=== PATIENT | male | born 1930 | race Caucasian/White ===

== ENCOUNTER 2016-09-24 16:11 | Inpatient (IN) | payer OTHER, BC ==
[~2016-09-24] VITALS: Ht 188.6 cm; Wt 89.4 kg
[~2016-09-24 16:11] MED LIST: CHOL400C7 PO; CINN1CAP2 PO; CLOP1TAB15 PO; DIVA500T5 PO; DOXY100C76 PO; GLCSC750600 PO; JNV100 PO; KRIL1CAP14 PO; METF1TAB85 PO; MISCCAP80 PO; MULT-188 PO; MULT-506 PO; PRED1SUS3 OPL; PSYL55.43 PO; SIMV40TA2 PO; TAMS0.4C38 PO; VITA100C4 PO; VST10 PO; [UNRECOGNIZED DRUG - CODE] PO
[2016-09-24] MEDS ORDERED: MAGNESIUM CITRATE 296 ML/BTL PO STA (16:37)
[2016-09-24] MEDS ORDERED: SOAP SUDS ENEMA PR STA (16:37)
--- NOTE | 2016-09-24 16:40 | EMERGENCY ROOM VISIT NOTE ---
History Report prepared by Iza: Dina Mason Under the Supervision of: Dr. Singh Woodard M.D. First contact with patient: 16:27 Chief Complaint: CONSTIPATION Stated Complaint: ANAL BLEEDING History of Present Illness The patient is a 85 year old male who presents to the Emergency Room with complaints of severe constipation starting today. He reports a very small amount of stool with blood. He currently complains of abdominal pain and rectal pain. He has worsening pain with sitting down. The patient is on Plavix. He denies fevers, chills, or any other complaints. The patient has a history of constipation but reports his current episode is much more severe than any of his past episodes. Source of History: patient Onset: today Position: other (global) Symptom Intensity: severe Quality: other (constipation) Associated Symptoms: + abdominal pain, No chills, No fevers Review of Systems See HPI for pertinent positives & negatives. A total of 10 systems reviewed and were otherwise negative. Past Medical & Surgical Medical Problems: (1) Closed head injury (2) Contusion of rib on right side (3) CVA (cerebral infarction) (4) Diabetes (5) Diarrhea (6) Fall (7) Fall (8) Hypertension (9) Retinal detachment Family History Diabetes mellitus FH: HTN (hypertension) FH: diabetes in Gallbladder disease Social History Smoking Status: Never Smoker Alcohol Use: none Occupation Status: retired Current/Historical Medications Scheduled Cholecalciferol (Vitamin D 400 Iu), 400 INTER.UNIT PO QPM Cinnamon (Cinnamon), 500 MG PO QAM Clopidogrel (Plavix), 75 MG PO QAM Divalproex Sodium (Depakote Delay Rel), 500 MG PO BID Doxycycline Monohydrate (Monodox), 100 MG PO QAM Enalapril Maleate (Enalapril Maleate), 10 MG PO QAM Glucosamine-Chondroitin (Glucosamine/Chondroitin), 1 TABLET PO BID Glyburide/Metformin (Glucovance 2.5/500 Mg *), 1 TABLET PO BID Krill Oil (Maximum Red Krill 300 mg), 300 MG PO QAM Metformin Hcl (Metformin Hcl Er), 500 MG PO QPM Multiple Vitamins W/ Minerals (Ocuvite), 1 TAB PO QAM Multivitamin (Multivitamin), 1 TABLET PO QAM Prednisolone Acetate 1% Oph (Pred Forte 1% Oph), 1 DROP OPL QID Probiotic Product (Probiotic), 1 CAP PO QAM Psyllium (Metamucil Powder), 1 TBS PO QAM Simvastatin (Zocor), 40 MG PO HS Sitagliptin (Januvia), 100 MG PO QPM Tamsulosin Hcl (Flomax), 0.4 MG PO HS Tocopheryl Acet,Dl-Alpha (Vitamin E), 200 INTER.UNIT PO QAM Allergies Coded Allergies: No Known Allergies (Verified , NKDA, 07/16/15) Physical Exam Vital Signs Date Time Temp Pulse Resp B/P Pulse Ox O2 Delivery O2 Flow Rate FiO2 09/25/16 00:00 90 19 144/90 95 Room Air 09/24/16 23:17 92 09/24/16 23:14 87 16 162/96 94 Room Air 09/24/16 21:55 83 16 155/78 96 Room Air 09/24/16 20:35 89 16 144/84 96 Room Air 09/24/16 19:14 84 09/24/16 18:37 85 16 126/70 95 09/24/16 16:16 36.6 96 18 139/82 96 Room Air Physical Exam GENERAL: Patient is a healthy-appearing well-nourished HEAD: Normocephalic atraumatic EYES: Ocular movements intact pupils equal and react to light OROPHARYNX mucous membranes are moist no exudates present no erythema or edema present NECK: Supple no nuchal rigidity CHEST: Good equal expansion LUNGS: Clear and equal to auscultation CARDIAC: Normal S1 and S2 ABDOMEN: Soft nontender no guarding BACK: No CVA tenderness RECTAL: Large stool ball noted. Disimpaction done. No blood present. EXTREMITIES: No pain upon palpation normal muscle strength in all groups no clubbing cyanosis or edema NEURO: Patient is following commands is answering questions appropriately. Alert and oriented x3 Cranial Nerves 2-12 grossly intact Medical Decision & Procedures ER Provider Diagnostic Interpretation: X-ray results as stated below per interpretation by me and the radiologist: CHEST AND ABDOMEN 2 VIEWS HISTORY: Pt c/o constipation COMPARISON: Chest 01/03/2015. Abdomen and pelvis CT 07/10/2013. FINDINGS: The lungs are clear. The heart is normal in size. No pleural effusions. No pneumothorax. No renal or ureteral calculi. Moderate well-formed stool seen within the colon. No dilated loops of small bowel to suggest an obstruction. IMPRESSION: 1. No acute process within the chest. 2. No evidence for bowel obstruction. 3. Moderate well-formed stool within the colon. Electronically signed by: Luis Cruz M.D. 09/24/2016 6:54 PM Dictated Date/Time: 09/24/2016 6:53 PM Laboratory Results 09/24/16 18:45 Red Blood Count 4.32, Mean Corpuscular Volume 92.1, Mean Corpuscular Hemoglobin 32.6, Mean Corpuscular Hemoglobin Concent 35.4, Mean Platelet Volume 10.0, Neutrophils (%) (Auto) 73.0, Lymphocytes (%) (Auto) 20.3, Monocytes (%) (Auto) 6.1, Eosinophils (%) (Auto) 0.2, Basophils (%) (Auto) 0.1, Neutrophils # (Auto) 6.64, Lymphocytes # (Auto) 1.85, Monocytes # (Auto) 0.56, Eosinophils # (Auto) 0.02, Basophils # (Auto) 0.01 09/24/16 18:45 Test 09/24/16 18:45 White Blood Count 9.11 K/uL (4.8-10.8) Red Blood Count 4.32 M/uL (4.7-6.1) Hemoglobin 14.1 g/dL (14.0-18.0) Hematocrit 39.8 % (42-52) Mean Corpuscular Volume 92.1 fL (80-100) Mean Corpuscular Hemoglobin 32.6 pg (25-34) Mean Corpuscular Hemoglobin Concent 35.4 g/dl (32-36) Platelet Count 198 K/uL (130-400) Mean Platelet Volume 10.0 fL (7.4-10.4) Neutrophils (%) (Auto) 73.0 % Lymphocytes (%) (Auto) 20.3 % Monocytes (%) (Auto) 6.1 % Eosinophils (%) (Auto) 0.2 % Basophils (%) (Auto) 0.1 % Neutrophils # (Auto) 6.64 K/uL (1.4-6.5) Lymphocytes # (Auto) 1.85 K/uL (1.2-3.4) Monocytes # (Auto) 0.56 K/uL (0.11-0.59) Eosinophils # (Auto) 0.02 K/uL (0-0.5) Basophils # (Auto) 0.01 K/uL (0-0.2) RDW Standard Deviation 44.4 fL (36.4-46.3) RDW Coefficient of Variation 13.2 % (11.5-14.5) Immature Granulocyte % (Auto) 0.3 % Immature Granulocyte # (Auto) 0.03 K/uL (0.00-0.02) Anion Gap 9.0 mmol/L (3-11) Est Creatinine Clear Calc Drug Dose 66.6 ml/min Estimated GFR () 81.3 Estimated GFR (Non- 70.1 BUN/Creatinine Ratio 16.4 (10-20) Calcium Level 9.1 mg/dl (8.5-10.1) Total Bilirubin 0.5 mg/dl (0.2-1) Direct Bilirubin 0.1 mg/dl (0-0.2) Aspartate Amino Transf (AST/SGOT) 29 U/L (15-37) Alanine Aminotransferase (ALT/SGPT) 18 U/L (12-78) Alkaline Phosphatase 53 U/L (45-117) Total Protein 7.2 gm/dl (6.4-8.2) Albumin 3.8 gm/dl (3.4-5.0) Lipase 250 U/L (73-393) Labs reviewed by ED physician. Medications Administered Medications (Trade) Dose Ordered Sig/Malinda Route Start Time Stop Time Status Last Admin Dose Admin Magnesium Citrate (Citrate Of Magnesia Soln) 150 ml NOW STAT PO 09/24/16 16:37 09/24/16 16:38 DC 09/24/16 16:45 150 ML Miscellaneous 1 ea 1 ea NOW STAT AZ 09/24/16 16:37 09/24/16 16:38 DC 09/24/16 17:05 1 EA Sodium Chloride (Nss 1000ml) 1,000 ml @ 999 mls/hr Q1H1M STAT IV 09/24/16 18:46 09/24/16 19:46 DC 09/24/16 19:05 999 MLS/HR Hydromorphone HCl (Dilaudid Inj) 0.5 mg NOW STAT IV 09/24/16 22:55 09/24/16 22:56 DC 09/24/16 23:12 0.5 MG Metoclopramide HCl (Reglan Inj) 10 mg NOW STAT IV 09/24/16 22:55 09/24/16 22:56 DC 09/24/16 23:11 10 MG ED Course 162: Past medical records reviewed. The patient was evaluated in room B04B. A complete history and physical examination was performed. 163: I performed rectal exam. I performed disimpaction. 163: Soap Suds Enema 1 ea AZ, Magnesium Citrate 150 ml PO 1846: Sodium Chloride 1000 ml @ 999 mls/hr IV 2154: The patient is complaining of abdominal pain and blood clots. 3: The patient is requesting to be hospitalized. 2255: Reglan Inj 10 mg IV, Dilaudid Inj 0.5 mg IV 0007: Upon reexamination the patient is resting comfortably. I discussed results and treatment plan with the patient. He verbalizes agreement and understanding. [facility] The patient will be evaluated for further management. Medical Decision Differential diagnosis: Etiologies such as functional constipation, impaction, obstruction, volvulus, metabolic abnormality, infection, neurologic, as well as others were entertained. This is an 85-year-old male who presents emergency department complaining of being unable to defecate. The patient was disimpacted by myself and he was given magnesium citrate as well as enemas. The patient continued to have rectal bleeding therefore an IV was established and a CBC renal profile and blood screen were obtained. The patient was also sent for a CAT scan of the abdomen pelvis which showed a large amount of fecal retention. At this point the patient became very agitated upon returning back from CAT scan and was requesting pain medication. He became belligerent with disposition and began questioning my Hippocratic oath. I noted to the patient that I offered him pain medication numerous times well he was in the emergency department and every single time he refused the pain medication. He was therefore given IV Dilaudid and discussed with the hospitalist service. Consults Time Called: 4 Consulting Physician: Dr. Flower from the [facility] Hospitalist Service Returned Call: [address] [facility]. Impression Primary Impression: Diffuse abdominal pain Additional Impressions: Rectal bleeding Constipation Scribe Attestation The scribe's documentation has been prepared under my direction and personally reviewed by me in its entirety. I confirm that the note above accurately reflects all work, treatment, procedures, and medical decision making performed by me. Departure Information Dispostion Being Evaluated By Hospitalist Referrals Jass Osorio M.D. (PCP) Patient Instructions My [facility] Health Problem Qualifiers Additional Impressions: Constipation Constipation type: other constipation type Qualified Codes: K59.09 - Other constipation
[2016-09-24] MEDS ORDERED: SODIUM CHLORIDE 0.9% 1000ML 1,000 ML IV STA (18:46)
--- NOTE | 2016-09-24 18:56 | DIAGNOSTIC IMAGING REPORT ---
CHEST AND ABDOMEN 2 VIEWS HISTORY: Pt c/o constipation COMPARISON: Chest 01/03/2015. Abdomen and pelvis CT 07/10/2013. FINDINGS: The lungs are clear. The heart is normal in size. No pleural effusions. No pneumothorax. No renal or ureteral calculi. Moderate well-formed stool seen within the colon. No dilated loops of small bowel to suggest an obstruction. IMPRESSION: 1. No acute process within the chest. 2. No evidence for bowel obstruction. 3. Moderate well-formed stool within the colon. Electronically signed by: Luis Cruz M.D. 09/24/2016 6:54 PM Dictated Date/Time: 09/24/2016 6:53 PM
[2016-09-24 18:59] LABS: BASO % 0.1 %; BASO ABS # 0.01 K/uL (0-0.2); COMPLETE YES; EOS % 0.2 %; HEMATOCRIT 39.8 % (42-52); IG% 0.3 %; LYMPH % 20.3 %; LYMPH ABS # 1.85 K/uL (1.2-3.4); MEAN CELL VOLUME 92.1 fL (80-100); MEAN CORPUSCULAR HEMOGLOBIN 32.6 pg (25-34); MEAN CORPUSCULAR HGB CONC 35.4 g/dl (32-36); MONO % 6.1 %; PLATELET COUNT 198 K/uL (130-400); RED BLOOD COUNT 4.32 M/uL (4.7-6.1); WHITE BLOOD COUNT 9.11 K/uL (4.8-10.8)
[2016-09-24] MEDS ORDERED: OPTIRAY 320 IV PRN (19:15)
[2016-09-24 19:17] LABS: BUN/CREATININE RATIO 16.4 (10-20); CALCIUM 9.1 mg/dl (8.5-10.1); CREATININE 0.99 mg/dl (0.60-1.40); POTASSIUM 4.2 mmol/L (3.5-5.1)
--- NOTE | 2016-09-24 22:04 | DIAGNOSTIC IMAGING REPORT ---
ABDOMEN AND PELVIS CT WITH IV AND ORAL CONTRAST CT DOSE: 706.98 mGy.cm HISTORY: Pt c/o constipation, rectal bleed TECHNIQUE: Multiaxial CT images of the abdomen and pelvis were performed following the use of intravenous and oral contrast. COMPARISON STUDY: Abdomen and pelvis CT 07/10/2013. FINDINGS: The heart remains top normal in size. Linear density at the right lower lobe favor subsegmental atelectasis are scarring. No pneumoperitoneum. No pneumatosis. No suspicious lytic or blastic osseous lesions. Degenerative changes within the lumbar spine. The liver, gallbladder, pancreas, spleen, adrenal glands are unremarkable. Multiple bilateral renal hypodense lesions which favor cysts. Dominant cyst within the upper pole of the right kidney measures 2.6 cm. There is also 2.4 cm cyst within the upper pole the left kidney. No hydronephrosis. No retroperitoneal lymphadenopathy. Bladder is distended. No pelvic free fluid. Questionable mild thickening of the distal rectum with minimal presacral fat stranding/edema. Moderate to large amount of well-formed stool within the rectum. There is a small amount of well-formed stool seen within the colon. Normal appendix. No evidence for small bowel obstruction. IMPRESSION: 1. There is suggestion of mild thickening of the distal rectum with minimal presacral fat stranding/edema. There is also a moderate to large amount well-formed stool within the rectum. This is consistent with a nonspecific proctitis but could be due to a stercoral proctitis. 2. Distended bladder. Recommend catheterization. 3. Normal appendix. 4. Bilateral renal cysts. Electronically signed by: Luis Cruz M.D. 09/24/2016 10:03 PM Dictated Date/Time: 09/24/2016 9:54 PM
[2016-09-24] MEDS ORDERED: METOCLOPRAMIDE HCL INJ 5 MG/ML 2 ML VIAL IV STA (22:55)
[2016-09-24] MEDS ORDERED: HYDROmorphone INJ 0.5 MG/0.5 ML SYR IV STA (22:55)
[2016-09-25] VITALS (9 sets, daily range): BP systolic 132–160; BP diastolic 71–88; PULSE 76–104; TEMP 36.6–37; O2SAT 93–96; Ht 188.6 cm; Wt 89.4 kg
[2016-09-25] MEDS ORDERED: HYDROmorphone INJ 0.5 MG/0.5 ML SYR IV STA (01:32)
--- NOTE | 2016-09-25 02:27 | History and Physical ---
History & Physical Date & Time of Service: Sep 25, 2016 at 02:07 Chief Complaint: Anal Bleeding Primary Care Physician: Jass Osorio M.D. History of Present Illness Source: patient 85 y/o M Hx HTN, HPL, NIDDM, CVA. Presented with constipation and related lower abdominal pain which was occasionally severe. He had been passing very small amounts of stool which were blood streaked. In the ER he received an enema and was also disimpacted. This resulted in several episodes of grossly bloody diarrhea. A CT of the abdomen was obtained revealing stercoral proctitis and a distended bladder. The pts bleeding has persisted and he will be admitted for monitoring and evaluation by the GI service. He denies lightheadedness, SOB or CP. Past Medical/Surgical History Medical Problems: (1) Closed head injury Status: Resolved (2) Contusion of rib on right side Status: Resolved (3) CVA (cerebral infarction) No residuals (4) Diabetes Status: Chronic (5) Diarrhea Status: Resolved (6) Fall Status: Resolved (7) Hypertension Status: Chronic (8) Retinal detachment Status: Resolved 9) BPH 10) Hard of hearing Family History Diabetes mellitus FH: HTN (hypertension) FH: diabetes in Gallbladder disease Social History Smoking Status: Never Smoker Housing status: lives alone Occupational Status: retired Immunizations History of Influenza Vaccine: N/A History of Tetanus Vaccine?: Yes History of Pneumococcal: Yes History of Hepatitis B Vaccine: No Multi-Drug Resistant Organisms History of MDRO: No Allergies Coded Allergies: No Known Allergies (Verified , NKDA, 07/16/15) Home Medications Scheduled Cholecalciferol (Vitamin D 400 Iu), 400 INTER.UNIT PO QPM Cinnamon (Cinnamon), 500 MG PO QAM Clopidogrel (Plavix), 75 MG PO QAM Divalproex Sodium (Depakote Delay Rel), 500 MG PO BID Doxycycline Monohydrate (Monodox), 100 MG PO QAM Enalapril Maleate (Enalapril Maleate), 10 MG PO QAM Glucosamine-Chondroitin (Glucosamine/Chondroitin), 1 TABLET PO BID Glyburide/Metformin (Glucovance 2.5/500 Mg *), 1 TABLET PO BID Krill Oil (Maximum Red Krill 300 mg), 300 MG PO QAM Metformin Hcl (Metformin Hcl Er), 500 MG PO QPM Multiple Vitamins W/ Minerals (Ocuvite), 1 TAB PO QAM Multivitamin (Multivitamin), 1 TABLET PO QAM Prednisolone Acetate 1% Oph (Pred Forte 1% Oph), 1 DROP OPL QID Probiotic Product (Probiotic), 1 CAP PO QAM Psyllium (Metamucil Powder), 1 TBS PO QAM Simvastatin (Zocor), 40 MG PO HS Sitagliptin (Januvia), 100 MG PO QPM Tamsulosin Hcl (Flomax), 0.4 MG PO HS Tocopheryl Acet,Dl-Alpha (Vitamin E), 200 INTER.UNIT PO QAM Review of Systems Constitutional: No chills, No fever, No sweats Eyes: No eye pain, No worsening of vision ENT: No hearing loss, No nasal symptoms, No unusual epistaxis Respiratory: No cough, No sputum, No wheezing Cardiovascular: No PND, No chest pain, No orthopnea Abdomen: + constipation, + diarrhea, + pain, + problem reported (BRBPR and diarrhea following disimpaction), No nausea, No vomiting Musculoskeletal: No joint pain, No muscle pain Genitourinary - Male: No dysuria, No hematuria Neurologic: No memory loss, No paralysis, No weakness Psychiatric: No depression symptoms Endocrine: No fatigue Hematologic / Lymphatic: No abnormal bleeding/bruising Integumentary: No rash Allergic / Immunologic: No environmental allergies Physical Exam Vital Signs Date Time Temp Pulse Resp B/P Pulse Ox O2 Delivery O2 Flow Rate FiO2 09/25/16 00:00 90 19 144/90 95 Room Air 09/24/16 23:17 92 09/24/16 23:14 87 16 162/96 94 Room Air 09/24/16 21:55 83 16 155/78 96 Room Air 09/24/16 20:35 89 16 144/84 96 Room Air 09/24/16 19:14 84 09/24/16 18:37 85 16 126/70 95 09/24/16 16:16 36.6 96 18 139/82 96 Room Air General Appearance: WD/WN, no apparent distress Head: normocephalic, atraumatic Eyes: normal inspection, PERRL, EOMI ENT: normal ENT inspection, pharynx normal Neck: supple, no adenopathy, thyroid normal, no JVD Respiratory/Chest: chest non-tender, lungs clear Cardiovascular: regular rate, rhythm, no edema, no gallop, no JVD, no murmur, normal peripheral pulses Abdomen/GI: + tenderness, + pertinent finding (Mild distention with hypoactive bowel sounds) Genitourinary - Male: + urethral discharge (bladder distention - catheter placed), + pertinent finding Back: normal inspection, no CVA tenderness, no muscle spasm, normal range of motion Extremities/Musculoskelatal: normal inspection Neurologic/Psych: 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, no motor/sensory deficits, alert, normal mood/affect, normal reflexes, oriented x 3, + pertinent finding (Hard of hearing - B/L aids) Skin: normal color, warm/dry, no rash Diagnostics Laboratory Results Results Past 24 Hours Test 09/24/16 18:45 Range/Units White Blood Count 9.11 4.8-10.8 K/uL Red Blood Count 4.32 4.7-6.1 M/uL Hemoglobin 14.1 14.0-18.0 g/dL Hematocrit 39.8 42-52 % Mean Corpuscular Volume 92.1 80-100 fL Mean Corpuscular Hemoglobin 32.6 25-34 pg Mean Corpuscular Hemoglobin Concent 35.4 32-36 g/dl Platelet Count 198 130-400 K/uL Mean Platelet Volume 10.0 7.4-10.4 fL Neutrophils (%) (Auto) 73.0 % Lymphocytes (%) (Auto) 20.3 % Monocytes (%) (Auto) 6.1 % Eosinophils (%) (Auto) 0.2 % Basophils (%) (Auto) 0.1 % Neutrophils # (Auto) 6.64 1.4-6.5 K/uL Lymphocytes # (Auto) 1.85 1.2-3.4 K/uL Monocytes # (Auto) 0.56 0.11-0.59 K/uL Eosinophils # (Auto) 0.02 0-0.5 K/uL Basophils # (Auto) 0.01 0-0.2 K/uL RDW Standard Deviation 44.4 36.4-46.3 fL RDW Coefficient of Variation 13.2 11.5-14.5 % Immature Granulocyte % (Auto) 0.3 % Immature Granulocyte # (Auto) 0.03 0.00-0.02 K/uL Sodium Level 142 136-145 mmol/L Potassium Level 4.2 3.5-5.1 mmol/L Chloride Level 105 98-107 mmol/L Carbon Dioxide Level 28 21-32 mmol/L Anion Gap 9.0 3-11 mmol/L Blood Urea Nitrogen 16 7-18 mg/dl Creatinine 0.99 0.60-1.40 mg/dl Est Creatinine Clear Calc Drug Dose 66.6 ml/min Estimated GFR () 81.3 Estimated GFR (Non- 70.1 BUN/Creatinine Ratio 16.4 10-20 Random Glucose 90 70-99 mg/dl Calcium Level 9.1 8.5-10.1 mg/dl Total Bilirubin 0.5 0.2-1 mg/dl Direct Bilirubin 0.1 0-0.2 mg/dl Aspartate Amino Transf (AST/SGOT) 29 15-37 U/L Alanine Aminotransferase (ALT/SGPT) 18 12-78 U/L Alkaline Phosphatase 53 45-117 U/L Total Protein 7.2 6.4-8.2 gm/dl Albumin 3.8 3.4-5.0 gm/dl Lipase 250 73-393 U/L Diagnostic Radiology CT abdomen: 1.There is suggestion of mild thickening of the distal rectum with minimal presacral fat stranding/edema. There is also a moderate to large amount well- formed stool within the rectum. This is consistent with a nonspecific proctitis but could be due to a stercoral proctitis. 2. Distended bladder. Recommend catheterization. 3. Normal appendix. 4. Bilateral renal cysts. Impression Assessment and Plan 85 y/o M Hx HTN, HPL, NIDDM, CVA. Presented with constipation and related lower abdominal pain which was occasionally severe. He had been passing very small amounts of stool which were blood streaked. In the ER he received an enema and was also disimpacted. This resulted in several episodes of grossly bloody diarrhea. A CT of the abdomen was obtained revealing stercoral proctitis and a distended bladder. The pts bleeding has persisted and he will be admitted for monitoring and evaluation by the GI service. 1) LGI bleed - likely the result of proctitis and Plavix use - bleeding has been copious however. We will trend his Hb and consult the GI service. Plavix held - monitor pressure on telemetry. IVF - NPO excepting necessary meds. Narcotics provided for calderon control as pain has been significant. 2) Bladder distention - retaining a small amount (200 cc on scan) - may be secondary to constipation - he has a cath in place as he was having what appeared to be overflow incontinence - we will leave this in place for the time being until his GI issues resolve. Cont Flomax 3) HTN - cont home meds 4) Hx CVA - restart Plavix if possible when bleeding resolves 5) DM - placed on sliding scale - oral meds held Full code - SCDs Total time for this admit including review of records, labs, med rec, imaging - discussion with pt and ER attending - 31 min Level of Care Telemetry Resuscitation Status FULL RESUSCITATION VTE Prophylaxis Given or contraindicated: SCD's
[2016-09-25 03:43] LABS: MANUAL MICROSCOPIC REQUIRED? YES; URINE APPEARANCE TURBID (CLEAR); URINE BILIRUBIN NEG (NEG); URINE COLOR RED; URINE NITRITE NEG (NEG); URINE PH 6.5 (4.5-7.5); UROBILINOGEN NEG (NEG)
[2016-09-25] MEDS ORDERED: IV FLUIDS COMPLETED PRN (03:45)
[2016-09-25 04:01] LABS: REVIEW REQ? NO
[2016-09-25 04:02] LABS: URINE RBC >30 /hpf (0-4)
[2016-09-25 04:06] LABS: URINE WBC >30 /hpf (0-5)
[2016-09-25 04:07] LABS: URINE BACTERIA 1+ (NEG)
[2016-09-25 04:08] LABS: ZZURINE CULT IF INDIC CATH YES
[2016-09-25] MEDS ORDERED: GLUCOSE 10 TABS/TUBE PO PRN (04:15)
[2016-09-25] MEDS ORDERED: GLUCAGON FOR INJ 1 MG VIAL SQ PRN (04:15)
[2016-09-25] MEDS ORDERED: GLUCOSE 40% GEL 15 GM TUBE PO PRN (04:15)
[2016-09-25] MEDS ORDERED: DEXTROSE 50% 50 ML SYR IV PRN (04:15)
[2016-09-25] MEDS: SODIUM CHLORIDE 0.9% 1000ML 1,000 ML IV SCH ×2 (04:59→16:08)
[2016-09-25] MEDS: INSULIN ASPART 100 UNITS/ML 3 ML PEN SC SCH ×4 (06:33→23:42)
[2016-09-25 08:07] LABS: HEMATOCRIT 38.8 % (42-52)
[2016-09-25] MEDS: DIVALPROEX SODIUM 500 MG DELAY RELEASE TAB PO SCH ×2 (08:16→20:59)
--- NOTE | 2016-09-25 08:40 | Progress Note ---
Progress Note Bridge note: Pt admitted after midnight. Chart reviewed, pt seen and examined. RN called and said pt was having heavy rectal bleeding, vitals stable and actually hypertensive. STAT H/H revealed hgb stable at 13.7. RN reported BRBPR that was a large amount. Pt denies SOB, CP, headache or lightheadedness. He is having lower abdominal pain. Reports having lunch yesterday and then felt like had to have a BM and was having lower abd pain all across, passed some small "bullets" of stool and then attempted manual self-disimpaction. Started having bright red bleeding mixed with stool, no clots, stopped disimpaction and came to ER. Last colonoscopy about 2 years ago and was told was normal, no records available for review. Was done with Dr. Mabry Vitaltammy reviewed NAD AAOx3 RRR no mgr nl S1S2 CTAB no wcr Abd +BS, soft, +TTP mostly suprapubic region with firm mass/stool palpable without guarding or rebound, Kemp in place and bladder decompressed, otherwise no masses, Rectal exam with bright red blood oozing very slowly and smeared on buttocks but not coming out rapidly, CARLOS not examined as did not want to disturb clot formation 85 yo male with h/o CVA, HTN, recurrent chalazions/blepharitis, dyslipidemia, DMII, BPH, here with rectal bleeding. H/H stable so far but may drop later as large amount bleeding just occurred. SOunds like constipation-induced proctitis and digital trauma -check H/H in 4 hours Spoke with GI who will see pt today to see if needs sigmoidoscopy -keep NPO -hold po meds holding Plavix and no chemical DVT proph -check vitals q1 hour for the next 4 hours -consented for PRBC transfusion if needed DVT Proph-SCDs
[2016-09-25] MEDS ORDERED: NON-FORMULARY MEDICATION (Probiotic Product (Probiotic) 1 CAP) PO SCH (09:00)
[2016-09-25] MEDS ORDERED: PNEUMOCOCCAL POLYSACCHARIDES 25 MCG/0.5 ML VIAL/SYR IM. ONE (09:00)
[2016-09-25] MEDS ORDERED: PNEUMOCOCCAL ADMINISTRATION CHARGE ONE (09:00)
[2016-09-25] MEDS: MoRPHine SULFATE 2 MG/ML CARP IV PRN ×2 (09:13→20:53)
[2016-09-25] MEDS: PrednisoLONE ACET 1% OP SUSP 5 ML BTL OPL SCH ×4 (09:13→20:58)
[2016-09-25 12:08] LABS: HEMATOCRIT 37.3 % (42-52)
[2016-09-25] MEDS: MINERAL OIL ENEMA 133 ML BTL PR SCH ×4 (12:20→21:12)
--- NOTE | 2016-09-25 12:56 | GASTROINTESTINAL CONSULTATION ---
DATE OF CONSULTATION: 09/25/2016 REASON FOR CONSULTATION: Rectal bleeding. HISTORY OF PRESENT ILLNESS: Mr. Vaughan is an 85-year-old white male with intermittent constipation who has had colonoscopies performed by Dr. Mabry 10 years ago and again 2 years ago and reports that there were no abnormal findings. The patient has been experiencing increasing difficulty with bowel movements and has tried some [id number] products of unclear type. He was developing increasing abdominal pain mostly lower, crampy abdominal pain, presumably due to inability to pass stools and eventually presented to the Emergency Room. At home, he was reporting hard stools, difficult to pass that, would occasionally have blood streaks on them. The patient received enemas in the ER following a colonoscopy that suggested a stool burden in the rectum along with inflammation in the rectum that likely reflected proctitis from a stercoral ulcer or stool impaction. He did have some bowel movements but began to have copious bright red blood per rectum following the enemas and disimpaction attempt. This continued off and on through the evening and night. Since this morning, the patient has not had a bright red bloody bowel movement. On admission, his hemoglobin was 14.1, at 4:30 this morning was 13.3 and 8:00 this morning 13.7. His white count is normal at 9.11. The patient denies any chronic or recent diarrhea or copious blood output. He also denies any weight loss, nausea or vomiting. He denies any recent changes in his medical therapy. 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 The patient also has a history of falls, retinal detachment and has difficulty hearing. He also has BPH and a distended bladder was noted on the CAT scan as well. FAMILY HISTORY: Significant for diabetes, hypertension, and gallbladder disease. SOCIAL HISTORY: The patient denies tobacco or alcohol usage. Lives alone and is retired. ALLERGIES: He has no known drug allergies. CURRENT HOME MEDICATIONS: Several and include vitamin D, Cinnamon, Plavix, valproic acid, doxycycline, enalapril, glucosamine, glyburide, metformin, krill oil, multivitamins, probiotics, simvastatin, sitagliptin, Januvia, tamsulosin, Flomax and tocopherol. REVIEW OF SYSTEMS: Otherwise noncontributory based on 14-point exam except for mentioned above. The patient denies any dysuria or hematuria. He has no reports of skin rash. He denies any nausea, vomiting, hematemesis, coffee-ground emesis or melena. PHYSICAL EXAMINATION: VITAL SIGNS: Today on admission - the patient is afebrile 36.6, heart rate 96, respirations 18, blood pressure 139/82, pulse ox 96% on room air. GENERAL: The patient is awake, alert and oriented x3. HEENT: He has a hearing aid device in his right ear. The sclerae anicteric. Conjunctivae are moist. NECK: There is no cervical or supraclavicular adenopathy. I do not appreciate thyromegaly. HEART: Normal S1, S2. LUNGS: Clear to auscultation without rales, rhonchi or wheeze. ABDOMEN: Mildly distended with mild tympany. There is no tenderness at this present time on moderate palpation. There is no rebound or guarding. I do not appreciate abdominal bruits. EXTREMITIES: Without clubbing, cyanosis or edema. RECTAL: Deferred at this time. ADDITIONAL LABORATORY STUDIES: Showed normal liver function panel, BUN and creatinine of 16 and 0.9 with a normal potassium of 4.2. IMPRESSION: Mr. Vaughan is an 85-year-old white male with multiple medical history with constipation. He did have a colonoscopy [address] Mabry, which the patient reports was unremarkable. The constipation has been intermittent at times, although has never created this degree of abdominal discomfort that he recalls and blood streaking of hard stools prior to admission. Differential diagnosis includes stercoral ulceration, possibly proctitis, although diarrhea overall has been absent in the patient's complaints. There are no significant-constipating medications in review of his medications. It is unclear what home remedies the patient was taking to promote a bowel movement, but describes a chocolate flavored cube that he bought [id number]. PLAN AND RECOMMENDATIONS: I made the following recommendations: His hemoglobin remained stable at this point as are his vital signs and I believe it is reasonable to gently attempt minimal oil enemas a couple times today followed by a GoLYTELY prep and colonoscopy tomorrow. If there is more overt bleeding or if the hemoglobin is dropping then a flexible sigmoidoscopy may be required later today. Orders placed. The patient's should be n.p.o. after midnight except for medications. Follow H/H serially. MTDD
[2016-09-25 16:30] LABS: HEMATOCRIT 36.3 % (42-52)
[2016-09-25] MEDS ORDERED: LAVAGE SOLUTION 4000ML PO SCH (17:00)
[2016-09-25] MEDS: ONDANSETRON INJ 2 MG/ML 2 ML VIAL IV PRN (20:53)
[2016-09-25] MEDS: SIMVASTATIN 40 MG TAB PO SCH (20:58)
[2016-09-25] MEDS: TAMSULOSIN HCL 0.4 MG CAP PO SCH (20:59)
[2016-09-25 21:26] LABS: HEMATOCRIT 34.2 % (42-52)
[2016-09-26] VITALS (7 sets, daily range): BP systolic 127–145; BP diastolic 62–78; PULSE 75–94; TEMP 36.3–36.9; O2SAT 93–97
[2016-09-26] MEDS: SODIUM CHLORIDE 0.9% 1000ML 1,000 ML IV SCH ×2 (05:52→18:48)
[2016-09-26] MEDS: MoRPHine SULFATE 2 MG/ML CARP IV PRN ×2 (05:54→21:49)
[2016-09-26] MEDS: INSULIN ASPART 100 UNITS/ML 3 ML PEN SC SCH ×3 (06:00→18:00)
[2016-09-26 07:16] LABS: BASO % 0.2 %; BASO ABS # 0.02 K/uL (0-0.2); COMPLETE YES; EOS % 1.1 %; HEMATOCRIT 29.2 % (42-52); IG% 0.2 %; LYMPH % 23.7 %; LYMPH ABS # 2.12 K/uL (1.2-3.4); MEAN CELL VOLUME 95.4 fL (80-100); MEAN CORPUSCULAR HEMOGLOBIN 32.4 pg (25-34); MEAN CORPUSCULAR HGB CONC 33.9 g/dl (32-36); MEAN PLATELET VOLUME 10.2 fL (7.4-10.4); MONO % 9.5 %; NEUT % 65.3 %; PLATELET COUNT 157 K/uL (130-400); RED BLOOD COUNT 3.06 M/uL (4.7-6.1); WHITE BLOOD COUNT 8.95 K/uL (4.8-10.8)
[2016-09-26 07:51] LABS: BUN/CREATININE RATIO 16.3 (10-20); CALCIUM 7.9 mg/dl (8.5-10.1); CREATININE 0.77 mg/dl (0.60-1.40); MAGNESIUM 1.9 mg/dl (1.8-2.4)
[2016-09-26] MEDS: PrednisoLONE ACET 1% OP SUSP 5 ML BTL OPL SCH ×5 (09:00→19:11)
[2016-09-26] MEDS: DIVALPROEX SODIUM 500 MG DELAY RELEASE TAB PO SCH ×2 (09:08→21:43)
--- NOTE | 2016-09-26 11:42 | Hospitalist Progress Note ---
Hospitalist Progress Note Date of Service Sep 26, 2016. (Estefania Piña ., PA-C) Subjective Pt evaluation today including: conversation w/ patient, physical exam, chart review, lab review, review of studies, review of inpatient medication list Pain: 5/10 dull lower abdominal pain PO Intake: NPO Voiding: jacobs catheter in place Patient reports feeling well. He complains of a 5/10 dull pain in his lower abdomen bilaterally, but states that this is much improved from prior to arrival. He has been having diarrhea as a result of the bowel prep for his colonoscopy today. Per nursing, there has not been any more bleeding per rectum. The patient states that he feels fatigued but also admits that he slept very poorly last night. Patient is being kept NPO. Jacosb in place. The patient denies fevers, chills, sweats, chest pain, palpitations, claudication, cough, wheezing, shortness of breath, nausea, vomiting, dysuria, hematuria, urinary retention, paralysis, weakness, numbness and tingling. Additional Comments: See HPI for pertinent positives and negatives. All other systems reviewed and negative. (Estefania Piañ ., PA-C) Objective Vital Signs Date Time Temp Pulse Resp B/P Pulse Ox O2 Delivery O2 Flow Rate FiO2 09/26/16 07:29 36.9 90 18 145/77 97 Room Air 09/26/16 04:00 Room Air 09/26/16 03:56 36.7 89 18 139/74 93 Room Air 09/26/16 00:00 36.7 94 18 143/78 93 Room Air 09/26/16 00:00 Room Air 09/25/16 20:00 Room Air 09/25/16 19:32 36.8 104 16 132/88 93 Room Air 09/25/16 16:00 Room Air 09/25/16 15:55 36.8 95 16 159/73 94 Room Air 09/25/16 12:03 89 141/76 09/25/16 12:00 Room Air 09/25/16 11:59 37.0 82 20 144/77 93 Room Air (Estefania Piña ., PA-C) Physical Exam General Appearance: WD/WN, no apparent distress Eyes: normal inspection, PERRL, EOMI ENT: normal ENT inspection, pharynx normal, + pertinent finding (very [place], hearing aids bilaterally) Neck: supple, no JVD, trachea midline Respiratory/Chest: lungs clear, normal breath sounds, no respiratory distress Cardiovascular: regular rate, rhythm, no gallop, no murmur Abdomen: normal bowel sounds, + distended (mild distention), + tenderness (LLQ and RLQ TTP) Extremities: non-tender, normal inspection, no pedal edema Neurologic/Psychiatric: alert, normal mood/affect, oriented x 3 Skin: normal color, warm/dry, no rash (Estefania Piña, PAJeffreyC) Laboratory Results Last 24 Hours Test 09/25/16 12:00 09/25/16 16:16 09/25/16 16:32 09/25/16 21:19 Hemoglobin 13.0 g/dL 12.4 g/dL 11.8 g/dL Hematocrit 37.3 % 36.3 % 34.2 % Bedside Glucose 144 mg/dl Test 09/25/16 23:30 09/26/16 06:13 09/26/16 07:02 Bedside Glucose 139 mg/dl 150 mg/dl White Blood Count 8.95 K/uL Red Blood Count 3.06 M/uL Hemoglobin 9.9 g/dL Hematocrit 29.2 % Mean Corpuscular Volume 95.4 fL Mean Corpuscular Hemoglobin 32.4 pg Mean Corpuscular Hemoglobin Concent 33.9 g/dl Platelet Count 157 K/uL Mean Platelet Volume 10.2 fL Neutrophils (%) (Auto) 65.3 % Lymphocytes (%) (Auto) 23.7 % Monocytes (%) (Auto) 9.5 % Eosinophils (%) (Auto) 1.1 % Basophils (%) (Auto) 0.2 % Neutrophils # (Auto) 5.84 K/uL Lymphocytes # (Auto) 2.12 K/uL Monocytes # (Auto) 0.85 K/uL Eosinophils # (Auto) 0.10 K/uL Basophils # (Auto) 0.02 K/uL RDW Standard Deviation 48.5 fL RDW Coefficient of Variation 14.0 % Immature Granulocyte % (Auto) 0.2 % Immature Granulocyte # (Auto) 0.02 K/uL Sodium Level 143 mmol/L Potassium Level 4.0 mmol/L Chloride Level 105 mmol/L Carbon Dioxide Level 28 mmol/L Anion Gap 10.0 mmol/L Blood Urea Nitrogen 13 mg/dl Creatinine 0.77 mg/dl Est Creatinine Clear Calc Drug Dose 85.1 ml/min Estimated GFR () 97.3 Estimated GFR (Non- 83.9 BUN/Creatinine Ratio 16.3 Random Glucose 143 mg/dl Calcium Level 7.9 mg/dl Magnesium Level 1.9 mg/dl (Estefania Piña ., MILAGROSC) Assessment and Plan 85 y/o male with a history of DM II, HTN, HLD, CVA, and BPH who presented to the ED with constipation, lower abdominal pain, and BRBPR. Pt received enema in ED and was disimpacted. Experienced grossly bloody diarrhea following disimpaction. Abd/pelvis CT findings consistent with proctitis, possibly a stercoral proctitis. Bladder was also distended on CT. Lower GI bleed in the setting of Plavix use--may be secondary to proctitis. Currently stable -Admitted for telemetry observation, will switch to full admission status 09/26 -GI consulted, appreciate recs: pt will go for colonoscopy on 09/26 -Pt kept NPO except meds -Hold Plavix -Continue trending H&H q6h. Hgb 9.9 on 09/26 -NSS at 75 cc/hr -Morphine 2 mg IV q3h prn pain -Zofran 4 mg IV q5h prn nausea Bladder distention, BPH--retained 200 cc on bladder scan, may be secondary to constipation -Continue Jacobs catheter -Continue Flomax 0.4 mg PO qhs Diabetes mellitus type 2--last hgbA1c checked 05/04/16 was 6.9 -Hold glyburide/metformin, Januvia -Insulin sliding scale -Check BSGs q ac and qhs -Recheck HgbA1c HTN--stable -Continue enalapril 10 mg PO qd HLD -Continue simvastatin 40 mg PO qhs H/o CVA -Restart Plavix when bleeding resolves, H&H stable DVT prophylaxis -Hold chemical prophylaxis due to bleeding -LUDWIG Barillas Code Status -Level I, FULL RESUSCITATION STATUS Dispo -PT/OT evaluate and treat and discharge planning as pt lives alone and is over 80 years old (Estefania Piña ., MILAGROSC) I agree with [facility] assessment and plan and have seen and examined pt myself VSS Labs reviewed Further drop in Hg Due for colonoscopy this afternoon Mild abd discomfort in lower quadrants (Jared Dawn D.O.)
[2016-09-26 13:06] LABS: ESTIMATED AVERAGE GLUCOSE 140 mg/dl; HA1C FLAG Normal (Normal)
[2016-09-26 13:18] LABS: HEMATOCRIT 29.7 % (42-52)
--- NOTE | 2016-09-26 14:12 | Endo History and Physical ---
History & Physical Date of Service: Sep 26, 2016. Chief Complaint: Rectal bleeding Referring Physician: Dr. Tre Osorio History of Present Illness For colonoscopy Past Medical History Diabetes, Arthritis, High Cholesterol, Hypertension, CVA/TIA Past Surgical History Hx Cardiac Surgery: No Hx Abdominal Surgery: Yes (hernia) Hx Post-Op Nausea and Vomiting: No Hx Cancer Surgery: No Hx Thoracic Surgery: No Hx Orthopedic: No Hx Urinary Tract Surgery: No Social History Smoking Status: Never Smoker Hx Substance Use: No Hx Alcohol Use: No Allergies Coded Allergies: No Known Allergies (Verified , NKDA, 07/16/15) Current Medications Reported Home Medications Medications Dose Route/Sig Max Daily Dose Days Date Category Pred Forte 1% Oph (Prednisolone Acetate) Susp 1 Drop OPL QID 06/18/15 Reported Flomax (Tamsulosin Hcl) 0.4 Mg Cap 0.4 Mg PO HS 05/13/15 Reported Monodox (Doxycycline Monohydrate) 100 Mg Cap 100 Mg PO QAM 05/13/15 Reported Maximum Red Krill 300 mg (Krill Oil) 1 Cap Cap 300 Mg PO QAM 01/03/15 Reported Metamucil Powder (Psyllium Hydrophilic Mucilloid) Powd 1 Tbs PO QAM 01/03/15 Reported Vitamin D 400 Iu (Cholecalciferol) 400 Unit Cap 400 Inter.unit PO QPM 10/18/14 Reported Probiotic (Probiotic Product) 1 Cap Cap 1 Cap PO QAM 10/18/14 Reported Ocuvite (Multiple Vitamins W/ Minerals) 1 Tab Tab 1 Tab PO QAM 10/18/14 Reported Enalapril Maleate 10 Mg Tab 10 Mg PO QAM 10/18/14 Reported Januvia (Sitagliptin) 100 Mg Tab 100 Mg PO QPM 10/18/14 Reported Depakote Delay Rel (Divalproex Sodium) 500 Mg Tab 500 Mg PO BID 10/18/14 Reported Metformin Hcl Er (Metformin Hcl) 500 Mg Tab 500 Mg PO QPM 10/18/14 Reported Cinnamon 500 Mg Cap 500 Mg PO QAM 07/10/13 Reported Zocor (Simvastatin) 40 Mg Tab 40 Mg PO HS 07/10/13 Reported Vitamin E (sw-Uwcih-Lbyhnjqtth Acetate) 100 Inter.unit Cap 200 Inter.unit PO QAM 01/17/12 Reported Multivitamin (Multivitamins) Tab 1 Tablet PO QAM 05/27/11 Reported Glucosamine/Chondroitin 750 Mg/600 Mg Cap 1 Tablet PO BID 08/14/09 Reported Plavix (Clopidogrel Bisulfate) 75 Mg Tab 75 Mg PO QAM 08/14/09 Reported Glucovance 2.5/500 Mg * (Glyburide/Metformin) Tab 1 Tablet PO BID 03/19/09 Reported Vital Signs Weight (Kilograms): 89.400 Height (Feet): 6 Height (Inches): 2.25 Date Time Temp Pulse Resp B/P Pulse Ox O2 Delivery O2 Flow Rate FiO2 09/26/16 13:57 36.3 90 20 145/73 93 Room Air 09/26/16 12:21 36.6 75 18 133/75 97 Room Air 09/26/16 12:13 Room Air 09/26/16 12:00 Room Air 09/26/16 11:09 36.6 75 18 133/75 97 Room Air 09/26/16 08:00 Room Air 09/26/16 07:29 36.9 90 18 145/77 97 Room Air 09/26/16 04:00 Room Air 09/26/16 03:56 36.7 89 18 139/74 93 Room Air 09/26/16 00:00 36.7 94 18 143/78 93 Room Air 09/26/16 00:00 Room Air 09/25/16 20:00 Room Air 09/25/16 19:32 36.8 104 16 132/88 93 Room Air 09/25/16 16:00 Room Air 09/25/16 15:55 36.8 95 16 159/73 94 Room Air Physical Exam General Appearance: WD/WN, + pertinent finding (Decreased hearing) Respiratory/Chest: Respiratory effort: no dyspnea Cardiovascular: Heart Auscultation: RRR Abdomen: Inspection & Palpation: soft Assessment and Plan Rectal bleeding for colonoscopy
[2016-09-26] MEDS ORDERED: LIDOCAINE HCL 2% 2 ML VIAL (20MG/ML) ONE (14:13)
[2016-09-26] MEDS ORDERED: PROPOFOL IV EMULSION 10 MG/ML 20 ML VIAL IV ONE ×2 (14:13)
--- NOTE | 2016-09-26 14:42 | Discharge Instructions ---
Endoscopy Patient Instructions Date / Procedure(s) Performed Sep 26, 2016. Colonoscopy Allergy Information Coded Allergies: No Known Allergies (Verified , NKDA, 07/16/15) Discharge Date / Findings Sep 26, 2016. Anal fissure Medication Instructions Restart Stopped Medication(s): resume meds Current Inpatient Medications Medications (Trade) Dose Ordered Sig/Malinda Route Start Time Stop Time Status Last Admin Dose Admin Ioversol (Optiray 320) 100 ml UD PRN IV 09/24/16 19:15 09/28/16 19:14 Divalproex Sodium (Depakote Delay Rel Tab) 500 mg BID PO 09/25/16 09:00 10/25/16 08:59 09/26/16 09:08 500 MG Prednisolone Acetate (Pred Forte 1% Oph Susp) 1 drops QID OPL 09/25/16 09:00 10/25/16 08:59 09/25/16 20:58 1 DROPS Simvastatin (Zocor Tab) 40 mg HS PO 09/25/16 21:00 10/25/16 20:59 09/25/16 20:58 40 MG Tamsulosin HCl (Flomax Cap) 0.4 mg HS PO 09/25/16 21:00 10/25/16 20:59 09/25/16 20:59 0.4 MG Acetaminophen (Tylenol Tab) 650 mg Q4H PRN PO 09/25/16 01:45 10/25/16 01:44 Ondansetron HCl (Zofran Inj) 4 mg Q6H PRN IV 09/25/16 01:45 10/25/16 01:44 09/25/16 20:53 4 MG Morphine Sulfate (MoRPHine SULFATE INJ) 2 mg Q3H PRN IV 09/25/16 01:45 10/09/16 01:44 09/26/16 05:54 2 MG Insulin Aspart SLIDING SCALE G... Q6 SC 09/25/16 06:00 10/25/16 05:59 09/25/16 06:33 1 UNITS Sodium Chloride (Nss 1000ml) 1,000 ml @ 75 mls/hr [id number] IV 09/25/16 04:15 09/26/16 05:52 75 MLS/HR Miscellaneous (Iv Fluids Completed) 1 ea PRN PRN N/A 09/25/16 03:45 09/25/17 03:44 Glucose (Glucose 40% Gel) 15-30 GRAMS 15 GRAMS... UD PRN PO 09/25/16 04:15 10/25/16 04:14 Glucose (Glucose Chew Tab) 4-8 Tablets 4 Tabl... UD PRN PO 09/25/16 04:15 10/25/16 04:14 Dextrose (Dextrose 50% 50ML Syringe) 25-50ML OF 50% DW IV FOR... UD PRN IV 09/25/16 04:15 10/25/16 04:14 Glucagon (Glucagon Inj) 1 mg UD PRN SQ 09/25/16 04:15 10/25/16 04:14 Polyethylene Glycol/ Electrolytes (Golytely Soln) 1 dose TODAY@1700 PO 09/25/16 17:00 10/25/16 16:59 09/25/16 18:19 1 DOSE Provider Instructions Activity Restrictions - No exercising or heavy lifting for 24 hours. - Do not drink alcohol the day of the procedure. - Do not drive a car or operate machinery until the day after the procedure. - Do not make any important decisions or sign important papers in 24 hours after the procedure. Following Day: - Return to full activity which may include returning to work/school. Diet Start your diet with liquids and light foods (jello, soup, juice, toast). Then eat your usual diet if not nauseated. Treatment For Common After Affects For mild abdominal pain, bloating, or excessive gas: - Rest - Eat lightly - Lie on right side Follow-Up Information Follow-up with as scheduled Anesthesia Information What You Should Know You have had a procedure that required some medicine to reduce anxiety and discomfort. This treatment is called moderate sedation. After receiving the treatment, you may be sleepy, but you will be able to breathe on your own. The effects of the treatment may last for several hours. Follow these instructions along with Activity/Diet recommendations noted above: * Do NOT do anything where dizziness or clumsiness would be dangerous. * Rest quietly at home today, then you can be up and about tomorrow. * Have a responsible person stay with you the rest of today. * You may have had an I.V. today. If so, you may take the dressing off later today. Recommendations Call your doctor if: * Trouble breathing * Continuous vomiting for more than 24 hours * Temperature above 101 degrees * Severe abdominal pain or bloating * Pain not relieved by pain medicine ordered * There is increased drainage or redness from any incision * A large amount of rectal bleeding greater than 2-3 tablespoons. (If you had a polyp/s removed or have hemorrhoids, a small amount of blood - from the rectum is to be expected.) * You have any unanswered questions or concerns. IN THE EVENT OF A SERIOUS EMERGENCY, GO TO THE NEAREST EMERGENCY ROOM Your discharge instructions were prepared by provider Price Mabry. Patient Instructions Signature Page Richard Vaughan Patient (or Guardian) Signature/Date: I have read and understand the instructions given to me by my caregivers. Caregiver/RN/Doctor Signature/Date: The above-named patient and/or guardian has received patient instructions on this date. + Original Patient Signature Page (only) stays with chart. Please make copy for patient.
--- NOTE | 2016-09-26 14:45 | GI REPORT ---
Procedure Date: 09/26/2016 2:24 PM Procedure: Colonoscopy Indications: Rectal bleeding Medicines: Propofol total dose 220 mg IV, Lidocaine 40 mg IV Complications: No immediate complications. Estimated Blood Loss: Estimated blood loss: none. Procedure: Pre-Anesthesia Assessment: - Prior to the procedure, a History and Physical was performed, and patient medications, allergies and sensitivities were reviewed. The patient's tolerance of previous anesthesia was reviewed. - The risks and benefits of the procedure and the sedation options and risks were discussed with the patient. All questions were answered and informed consent was obtained. After I obtained informed consent, the scope was passed under direct vision. Throughout the procedure, the patient's blood pressure, pulse, and oxygen saturations were monitored continuously. The scope was introduced through the anus and advanced to the cecum, identified by appendiceal orifice and ileocecal valve. The colonoscopy was performed without difficulty. The patient tolerated the procedure well. The quality of the bowel preparation was good. Findings: The perianal exam findings include anal fissure. The entire examined colon appeared normal. Impression: - Anal fissure found on perianal exam. - The entire examined colon is normal. - No specimens collected. Recommendation: - Return patient to [facility] for ongoing care. - Continue present medications. Price Mabry M.D. Price Mabry MD 09/26/2016 2:45:58 PM This report has been signed electronically. Note Initiated On: 09/26/2016 2:24 PM I attest to the content of the Intraoperative Record and orders documented therein, exceptions below
[2016-09-26] MEDS ORDERED: NITROGLYCERIN OINT 2% 1GM PACKET EXT ONE (15:00)
--- NOTE | 2016-09-26 15:11 | PROGRESS NOTE ---
DATE: 09/26/2016 HISTORY OF PRESENT ILLNESS: The patient presented for colonoscopy today after digital disimpaction for constipation. It appears that the constipation may have been related to him taking a lot of Tums, which had calcium and is constipating. After disimpaction, the patient had a lot of rectal bleeding. The patient is known to be on Plavix, which would actually augment the bleeding. He had a colonoscopy today. This colonoscopy was carried into the cecum. The prep was good. He did have an anal fissure, but no other cause of bleeding was found. There was a clot adjacent to the fissure that was removed. There was no further active bleeding. IMPRESSION AND PLAN: The patient has an anal as the source of bleeding. This is probably occurred during his disimpaction or when he was moving his bowels while being constipated. I recommended that the patient avoid using Tums or any calcium containing antacid and use Gaviscon or some non-calcium containing antacid instead and also to apply nitroglycerin ointment at 0.2% topically to the anal area twice a day to help facilitate healing of his anal fissure.
[2016-09-26] MEDS: PETROLATUM EXT SCH ×4 (16:00→22:00)
[2016-09-26] MEDS: NITROGLYCERIN 2% EXT SCH ×4 (16:00→22:00)
--- NOTE | 2016-09-26 16:06 | Anesthesiology Progress Note ---
Anesthesia Post Op Note Date & Time Sep 26, 2016 at 16:06 Vital Signs Pain Intensity: 0 Vital Signs Past 12 Hours Date Time Temp Pulse Resp B/P Pulse Ox O2 Delivery O2 Flow Rate FiO2 09/26/16 15:45 87 20 136/63 96 Room Air 09/26/16 15:10 90 20 141/67 93 Room Air 09/26/16 14:55 93 20 140/76 98 Room Air 09/26/16 13:57 36.3 90 20 145/73 93 Room Air 09/26/16 12:21 36.6 75 18 133/75 97 Room Air 09/26/16 12:13 Room Air 09/26/16 12:00 Room Air 09/26/16 11:09 36.6 75 18 133/75 97 Room Air 09/26/16 08:00 Room Air 09/26/16 07:29 36.9 90 18 145/77 97 Room Air Notes Mental Status: alert / awake / arousable, participated in evaluation Pt Amnestic to Procedure: Yes Nausea / Vomiting: adequately controlled Pain: adequately controlled Airway Patency, RR, SpO2: stable & adequate BP & HR: stable & adequate Hydration State: stable & adequate Anesthetic Complications: no major complications apparent
[2016-09-26] MEDS ORDERED: NURSING VERBAL MED ORDER ONE ×2 (18:15→23:00)
[2016-09-26 19:50] LABS: HEMATOCRIT 29.1 % (42-52)
[2016-09-26] MEDS: TAMSULOSIN HCL 0.4 MG CAP PO SCH (21:43)
[2016-09-26] MEDS: SIMVASTATIN 40 MG TAB PO SCH (21:43)
[2016-09-26] MEDS: ONDANSETRON INJ 2 MG/ML 2 ML VIAL IV PRN (21:47)
[2016-09-26] MEDS: ACETAMINOPHEN 325 MG TAB PO PRN (22:12)
[2016-09-27] VITALS (7 sets, daily range): BP systolic 107–148; BP diastolic 52–76; PULSE 83–109; TEMP 36.7–37.2; O2SAT 91–95
[2016-09-27 07:37] LABS: MEAN CELL VOLUME 93.2 fL (80-100); MEAN CORPUSCULAR HEMOGLOBIN 32.6 pg (25-34); MEAN PLATELET VOLUME 9.6 fL (7.4-10.4); PLATELET COUNT 147 K/uL (130-400); RED BLOOD COUNT 2.79 M/uL (4.7-6.1); WHITE BLOOD COUNT 7.27 K/uL (4.8-10.8)
[2016-09-27] MEDS: ACETAMINOPHEN 325 MG TAB PO PRN (08:02)
[2016-09-27 08:12] LABS: BUN/CREATININE RATIO 12.8 (10-20); CALCIUM 7.9 mg/dl (8.5-10.1); CREATININE 0.76 mg/dl (0.60-1.40); POTASSIUM 3.8 mmol/L (3.5-5.1)
[2016-09-27] MEDS: DIVALPROEX SODIUM 500 MG DELAY RELEASE TAB PO SCH ×2 (08:45→20:48)
[2016-09-27] MEDS: PrednisoLONE ACET 1% OP SUSP 5 ML BTL OPL SCH ×4 (08:46→20:08)
[2016-09-27] MEDS: INSULIN ASPART 100 UNITS/ML 3 ML PEN SC SCH ×4 (08:48→20:59)
[2016-09-27] MEDS: NITROGLYCERIN 2% EXT SCH ×4 (11:02→20:08)
[2016-09-27] MEDS: PETROLATUM EXT SCH ×4 (11:02→20:08)
[2016-09-27] MEDS ORDERED: NITR1OIN EXT (12:00)
[2016-09-27] MEDS ORDERED: SENN-61 PO (12:00)
--- NOTE | 2016-09-27 12:13 | Discharge Instructions ---
Discharge Instructions Admission Reason for Admission: Constipation, Rectal Bleeding Discharge Discharge Diagnosis / Problem: Constipation, rectal bleeding Discharge Goals Goal(s): Decrease discomfort, Improve function, Diagnostic testing, Therapeutic intervention Activity Recommendations Activity Limitations: resume your previous activity . Instructions / Follow-Up Instructions / Follow-Up You were admitted to the hospital with severe constipation, abdominal pain, and bloody stools. A disimpaction of your stool resulted in a large amount of bloody diarrhea. You were then kept NPO and monitored for severe acute blood loss. A colonoscopy was performed to determine the source of the bleeding. An anal fissure was found, which was likely the source of the bleeding. The rest of the colonoscopy was normal. Following the procedure, your blood counts remained stable, and you are now medically stable to return home. It is important that you avoid Tums and other medications containing calcium, as this is thought to be the cause of your severe constipation. If you are experiencing heartburn without the Tums, see your family doctor about other medications you can take that do not contain calcium. Medication: Please apply 1 inch of nitroglycerin ointment to your anal canal twice a day for the next 2 weeks to ensure your anal fissure is healed. This prescription has been sent to your pharmacy. Please take Senokot 2 tablets by mouth at bedtime. This is a laxative that will help treat your constipation. This prescription has been sent to your pharmacy. You may also take over the counter Colace 100 mg by mouth 1-2 times a day as needed for constipation. You may resume your home medications. Follow up: Please follow up with your primary care provider within 1-2 weeks regarding your hospital stay. Current Hospital Diet Patient's current hospital diet: Diabetes Type 2 Diet Discharge Diet Recommended Diet: Diabetes Type 2 Diet Procedures Procedures Performed: Colonoscopy Pending Studies Studies pending at discharge: no Laboratory Results Hemoglobin A1c Test 09/26/16 07:02 Range/Units Estimated Average Glucose 140 mg/dl Hemoglobin A1c 6.5 H 4.5-5.6 % Medical Emergencies . Who to Call and When: Medical Emergencies: If at any time you feel your situation is an emergency, please call 911 immediately. . Non-Emergent Contact Non-Emergency issues call your: Primary Care Provider Call Non-Emergent contact if: you have a fever, your pain is not controlled, your pain is worsening, your pain is concerning you, you have any medication questions . Past History Medical & Surgical History: (1) Constipation (2) Rectal bleeding . "Provider Documentation" section prepared by Estefania Piña. VTE Core Measure Inpt VTE Proph given/why not?: SCD's
--- NOTE | 2016-09-27 13:32 | Discharge Summary ---
Discharge Summary Admission Date: Sep 26, 2016 at 11:12 Discharge Date: Sep 27, 2016 Discharge Disposition: Home Principal Diagnosis: Constipation, anal fissure Immunizations: Have You Had Influenza Vaccine: N/A History of Tetanus Vaccine?: Yes History of Pneumococcal: Yes History of Hepatitis B Vaccine: No Procedures: Patient: MARLA GARCIA Admit Date: 09/24/1701/18/17 Med Rec: [id number] Acct ID: [id number] [~ rep ct labl] Page 2of 2 p: [~ rep prt dt last] [~ rep prt tm last] [~ rep ct labl] Page 1of 1 p: [~ rep prt dt last] [~ rep prt tm last] GI REPORT [place] Patient: MARLA GARCIA Admit Date: 09/24/1701/20/17 Med Rec: [id number] Att Phy: Jared Dawn D.O. Acct ID: [id number] Tammi Phy: Jass Osorio M.D. Date: 1930 Ref Phy: Self, Referred Fam Phy: Jass Osorio M.D. Age: 85 Location: [facility] Sex: M Room/Bed: [facility] MNE:PROVATION REPORT #: [id number] CC: Price Mabry M.D. Endcc: DICTATED BY: Price Mabry M.D. Procedure Date: 09/26/2016 2:24 PM Procedure: Colonoscopy Indications: Rectal bleeding Medicines: Propofol total dose 220 mg IV, Lidocaine 40 mg IV Complications: No immediate complications. Estimated Blood Loss: Estimated blood loss: none. Procedure: Pre-Anesthesia Assessment: - Prior to the procedure, a History and Physical was performed, and patient medications, allergies and sensitivities were reviewed. The patient's tolerance of previous anesthesia was reviewed. - The risks and benefits of the procedure and the sedation options and risks were discussed with the patient. All questions were answered and informed consent was obtained. After I obtained informed consent, the scope was passed under direct vision. Throughout the procedure, the patient's blood pressure, pulse, and oxygen saturations were monitored continuously. The scope was introduced through the anus and advanced to the cecum, identified by appendiceal orifice and ileocecal valve. The colonoscopy was performed without difficulty. The patient tolerated the procedure well. The quality of the bowel preparation was good. Findings: The perianal exam findings include anal fissure. The entire examined colon appeared normal. Impression: - Anal fissure found on perianal exam. - The entire examined colon is normal. - No specimens collected. Recommendation: - Return patient to [facility] for [facility] care. - Continue present medications. Price Mabry M.D. Price Mabry MD 09/26/2016 2:45:58 PM This report has been signed electronically. Note Initiated On: 09/26/2016 2:24 PM I attest to the content of the Intraoperative Record and orders documented therein, exceptions below Dictated: 09/26/16 1424 Signed: 09/26/16 1445 The status of this report is Signed. Draft = Not yet reviewed or approved by Medical Physician. Signed = Reviewed and approved by Medical Physician. <ConsultingPhyMNE>f pt consult dr gaytan</ConsultingPhyMNE> <FamilyPhyMNE>f pt fam dr gaytan</FamilyPhyMNE> <OtherPhyMNE>f pt other dr gaytan</OtherPhyMNE> < PrimaryPhyMNE>f pt prim care dr gaytan</PrimaryPhyMNE> <ReferringPhyMNE>f pt referring dr gaytan</ReferringPhyMNE> (Estefania Piña ., PAJeffreyC) Medication Reconciliation New Medications: Nitroglycerin (Intra-Anal) (Rectiv) 0.4 % Oin 1 INCH EXT BID for 14 Days, #1 TUBE Apply 1 inch of ointment to anal canal twice a day. Senna (Senokot) 8.6 Mg Tab 2 TAB PO HS for 30 Days, #60 TAB Take 2 tablets by mouth at bedtime. Continued Medications: Cholecalciferol (Vitamin D 400 Iu) 400 Unit Cap 400 INTER.UNIT PO QPM, CAP Cinnamon (Cinnamon) 500 Mg Cap 500 MG PO QAM Clopidogrel (Plavix) 75 Mg Tab 75 MG PO QAM, 0 Refills Divalproex Sodium (Depakote Delay Rel) 500 Mg Tab 500 MG PO BID, #180 Doxycycline Monohydrate (Monodox) 100 Mg Cap 100 MG PO QAM, CAP Enalapril Maleate (Enalapril Maleate) 10 Mg Tab 10 MG PO QAM, #90 Glucosamine-Chondroitin (Glucosamine/Chondroitin) 750 Mg/600 Mg Cap 1 TABLET PO BID Glyburide/Metformin (Glucovance 2.5/500 Mg *) Tab 1 TABLET PO BID Krill Oil (Maximum Red Krill 300 mg) 1 Cap Cap 300 MG PO QAM Metformin Hcl (Metformin Hcl Er) 500 Mg Tab 500 MG PO QPM, #90 Multiple Vitamins W/ Minerals (Ocuvite) 1 Tab Tab 1 TAB PO QAM Multivitamin (Multivitamin) Tab 1 TABLET PO QAM, 0 Refills Prednisolone Acetate 1% Oph (Pred Forte 1% Oph) Susp 1 DROP OPL QID Probiotic Product (Probiotic) 1 Cap Cap 1 CAP PO QAM Psyllium (Metamucil Powder) Powd 1 TBS PO QAM, PACK Simvastatin (Zocor) 40 Mg Tab 40 MG PO HS, TAB Sitagliptin (Januvia) 100 Mg Tab 100 MG PO QPM, #90 Tamsulosin Hcl (Flomax) 0.4 Mg Cap 0.4 MG PO HS, CAP Tocopheryl Acet,Dl-Alpha (Vitamin E) 100 Inter.unit Cap 200 INTER.UNIT PO QAM, CAP Discharge Exam The patient complains of a 7/10 dull lower abdominal pain that is accompanied by large amounts of flatus. The pain is more intermittent than it had been previously. He otherwise denies any complaints. The patient denies fevers, chills, sweats, chest pain, palpitations, claudication, cough, wheezing, shortness of breath, nausea, vomiting, dysuria, hematuria, urinary retention, paralysis, weakness, numbness and tingling. Review of Systems: Constitutional: No chills, No fever, No sweats Eyes: No diplopia, No eye pain, No worsening of vision ENT: No hearing loss, No sore throat, No trouble swallowing Respiratory: No cough, No shortness of breath, No wheezing Cardiovascular: No chest pain, No claudication, No palpitations Abdomen: + pain, No nausea, No vomiting Musculoskeletal: No calf pain, No joint pain, No muscle pain Genitourinary - Male: No dysuria, No hematuria, No urinary retention Neurologic: No numbness/tingling, No paralysis, No weakness Integumentary: No color change, No itch, No rash Physical Exam: General Appearance: WD/WN, no apparent distress Eyes: normal inspection, PERRL, EOMI ENT: normal ENT inspection, hearing grossly normal, pharynx normal Neck: supple, no JVD, trachea midline Respiratory/Chest: lungs clear, normal breath sounds, no respiratory distress Cardiovascular: regular rate, rhythm, no gallop, no murmur Abdomen / GI: normal bowel sounds, soft, + tenderness (suprapubic area TTP) Extremities: normal inspection, no calf tenderness, no pedal edema Neurologic/Psychiatric: alert, normal mood/affect, oriented x 3 Skin: normal color, warm/dry, no rash (Estefania Piña, MARY) Hospital Course 85 y/o male with a history of DM II, HTN, HLD, CVA, and BPH who presented to the ED with constipation, lower abdominal pain, and BRBPR. Pt received enema in ED and was disimpacted. Experienced grossly bloody diarrhea following disimpaction. Abd/pelvis CT findings consistent with proctitis, possibly a stercoral proctitis. Bladder was also distended on CT. Lower GI bleed in the setting of Plavix use--secondary to anal fissure which may have developed due to constipation or from manual disimpaction -Admitted for telemetry observation, switched to full admission status 09/26 -GI consulted, appreciate recs: colonoscopy on 09/26 showed anal fissure, otherwise normal. No active bleeding. Pt apparently had been taking a lot of Tums which may have caused his constipation. Recommend to avoid Tums and other meds containing calcium. Recommend applying nitro ointment to fissure BID. -Nitro ointment sent to pharmacy -Plavix held during hospital stay, may resume on discharge as no active bleeding and Hgb has been stable -H&H trended q6h. Hgb 9.1 on 09/27 at discharge -NSS at 75 cc/hr -Morphine 2 mg IV q3h prn pain -Zofran 4 mg IV q5h prn nausea -Will start Senokot 2 tabs PO qhs, can use Colace 100 mg PO qd-BID prn constipation Bladder distention, BPH--retained 200 cc on bladder scan, may be secondary to constipation -D/C Kemp -Continue Flomax 0.4 mg PO qhs Diabetes mellitus type 2--last hgbA1c checked 05/04/16 was 6.9 -Hold glyburide/metformin, Auguv, december resume at discharge -Insulin sliding scale -Check BSGs q ac and qhs -Rechecked HgbA1c was 6.5 on 09/26 HTN--stable -Continue enalapril 10 mg PO qd HLD -Continue simvastatin 40 mg PO qhs H/o CVA -Restart Plavix at discharge DVT prophylaxis -Held chemical prophylaxis due to bleeding -LUDWIG rayo and SCDs Code Status -Level I, FULL RESUSCITATION STATUS Dispo -Medically stable for discharge. Pt lives alone independently. Total Time Spent: Greater than 30 minutes This includes examination of the patient, discharge planning, medication reconciliation, and communication with other providers. (Estefania Piña ., PA-C) I agree with PA assessment and plan and have seen and examined pt myself VSS Labs reviewed Hemodynamically stable Abd Soft, NT, ND Colonoscopy - anal fissure, but no active bleed Can DC home and restart plavix (Jared Dawn, D.OGina) Discharge Instructions Please refer to the electronic Patient Visit Report (Discharge Instructions) for additional information. (Estefania Piña ., PA-C) Additional Copies To Jass Osorio M.D.
--- NOTE | 2016-09-27 14:16 | GASTROENTEROLOGY PROGRESS NOTE ---
DATE: 09/27/2016 DATE: 09/27/2016. SUBJECTIVE: The patient is resting comfortably in bed eating lunch. The patient underwent colonoscopy yesterday and except for a small anal fissure there were no other findings endoscopically. I suspect this area was the source of the patient's rectal bleeding following disimpaction and enemas. The patient reportedly was taking copious amounts of Tums which may have been providing a constipating effect. The patient does use Metamucil at home but does reveal that he is does not drink much water. Because of his back problems he also cannot ambulate very well. MiraLax tends to work but he has difficult to controlling stool patterns and that it often overshoots. VITAL SIGNS: The patient is afebrile, blood pressure 148/76, heart rate 89, respirations 18, temperature 37.2, 93% on room air. His medications were reviewed. ALLERGIES: He has no known drug allergies. MEDICATIONS: Unchanged at this time. REVIEW OF SYSTEMS: Otherwise noncontributory. PHYSICAL EXAMINATION: GENERAL: The patient is awake, alert and oriented x3. HEAD, EYES, EARS, NOSE, AND THROAT: Sclerae are anicteric. Conjunctivae moist. Oral mucosa is moist. HEART: Normal S1, S2. LUNGS: Clear to auscultation without wheezes. ABDOMEN: Soft, mildly tender in the lower abdomen which is chronic for the patient and he feels that he is still expelling some gas from his colonoscopy yesterday. There is no further bleeding reported. EXTREMITIES: The patient is without edema peripherally. RECTAL: Deferred at this time. IMPRESSION: The patient with anal fissure. Presumably [id number] calcium supplements may have led to the patient's increasing constipation recently. This should be avoided with recommendations for other liquid antacids as needed that may not have a large calcium burden and therefore reduce chance of constipation. I also encouraged the patient to drink plenty of water and to properly mix his Metamucil. If Dulcolax daily tends to produce a chaotic stool pattern and if his stools remain sluggish on Metamucil, then he can consider using MiraLax either twice weekly (Mondays, ) or 3 times a weekly (Monday, Monday, Monday). Will sign off for now. If you have any questions, please contact our service. Thank you for allowing me to participate in this gentleman's care. Sincerely.
[2016-09-27] MEDS: TAMSULOSIN HCL 0.4 MG CAP PO SCH (20:48)
[2016-09-27] MEDS: SIMVASTATIN 40 MG TAB PO SCH (20:48)
[2016-09-28 07:01] LABS: HEMATOCRIT 23.5 % (42-52); MEAN CELL VOLUME 93.3 fL (80-100); MEAN CORPUSCULAR HEMOGLOBIN 32.5 pg (25-34); MEAN CORPUSCULAR HGB CONC 34.9 g/dl (32-36); MEAN PLATELET VOLUME 9.5 fL (7.4-10.4); PLATELET COUNT 155 K/uL (130-400); RED BLOOD COUNT 2.52 M/uL (4.7-6.1)
[2016-09-28 07:26] VITALS: BP 116/66; PULSE 76; TEMP 36.7; O2SAT 92
[2016-09-28 07:38] LABS: BUN/CREATININE RATIO 16.4 (10-20); CALCIUM 8.1 mg/dl (8.5-10.1); CREATININE 0.79 mg/dl (0.60-1.40); POTASSIUM 3.6 mmol/L (3.5-5.1)
[2016-09-28] MEDS: PrednisoLONE ACET 1% OP SUSP 5 ML BTL OPL SCH (09:00)
[2016-09-28] MEDS: DIVALPROEX SODIUM 500 MG DELAY RELEASE TAB PO SCH (09:26)
[2016-09-28] MEDS: NITROGLYCERIN 2% EXT SCH ×2 (09:27)
[2016-09-28] MEDS: PETROLATUM EXT SCH ×2 (09:27)
[2016-09-28] MEDS: INSULIN ASPART 100 UNITS/ML 3 ML PEN SC SCH ×2 (09:30→13:09)
[2016-09-28 10:45] VITALS: BP 144/67; PULSE 63; O2SAT 92
[2016-09-28] MEDS ORDERED: NURSING VERBAL MED ORDER ONE (11:30)
[2016-09-28] MEDS ORDERED: LIDOCAINE HCL 2% JELLY 30 ML TUBE EXT ONE (12:03)
[2016-09-28 12:23] LABS: HEMATOCRIT 24.9 % (42-52)
[2017-03-08] MEDS ORDERED: ZNTT/150 PO (13:29)
[2017-03-08] MEDS ORDERED: MAGN400T6 PO (13:30)
== END 2016-09-28 15:18 | disposition home or self-care (01) | DRG 813 ==
LOC: ENRESERVDT → ENRESERVTM → C.EDB 16:12 → C.2T 09-25 02:31 → OBSVTOIN 09-26 11:12 → C.MSN 09-26 16:54
PROVIDERS: ADMIT Internal Medicine; ATTEND Hospitalist
PROC: 0DJD8ZZ Inspection of Lower Intestinal Tract, Via Natural or Artificial Opening Endoscopic (ICD-10-PCS; principal; 2016-09-26 13:52)
DX: D68.32 Hemorrhagic disorder due to extrinsic circulating anticoagulants (principal); K62.5 Hemorrhage of anus and rectum; R71.0 Precipitous drop in hematocrit; T45.515A Adverse effect of anticoagulants, initial encounter; K60.2 Anal fissure, unspecified; K59.03 Drug induced constipation; T47.1X5A Adverse effect of other antacids and anti-gastric-secretion drugs, initial encounter; K62.89 Other specified diseases of anus and rectum; R33.9 Retention of urine, unspecified; N40.1 Benign prostatic hyperplasia with lower urinary tract symptoms; I10 Essential (primary) hypertension; E11.9 Type 2 diabetes mellitus without complications; E78.5 Hyperlipidemia, unspecified; H91.90 Unspecified hearing loss, unspecified ear; Z91.81 History of falling; Z86.73 Personal history of transient ischemic attack (TIA), and cerebral infarction without residual deficits; Z79.02 Long term (current) use of antithrombotics/antiplatelets; Z79.2 Long term (current) use of antibiotics; Z79.84 Long term (current) use of oral hypoglycemic drugs; Z79.899 Other long term (current) drug therapy

== ENCOUNTER → 2016-10-05 | Outpatient (CLI) | payer OTHER, BC ==
[~2016-10-05] MED LIST changes: +ASCO500T3 PO; +CEFU1TAB36 PO; +MAGN400T6 PO; +NITR1OIN EXT; +SENN-61 PO; +ZNTT/150 PO
[2016-10-05 13:25] LABS: BASO % 0.3 %; BASO ABS # 0.02 K/uL (0-0.2); COMPLETE YES; EOS % 1.3 %; HEMATOCRIT 29.4 % (42-52); LYMPH % 31.5 %; LYMPH ABS # 1.97 K/uL (1.2-3.4); MEAN CELL VOLUME 95.1 fL (80-100); MEAN CORPUSCULAR HGB CONC 33.7 g/dl (32-36); MEAN PLATELET VOLUME 9.4 fL (7.4-10.4); MONO % 8.8 %; NEUT % 57.1 %; PLATELET COUNT 339 K/uL (130-400); RED BLOOD COUNT 3.09 M/uL (4.7-6.1); WHITE BLOOD COUNT 6.25 K/uL (4.8-10.8)
[2016-10-05 13:54] LABS: ALT/SGPT 15 U/L (12-78); AST/SGOT 23 U/L (15-37); BLOOD UREA NITROGEN 16 mg/dl (7-18); BUN/CREATININE RATIO 16.8 (10-20); CALCIUM 8.8 mg/dl (8.5-10.1); CARBON DIOXIDE 25 mmol/L (21-32); CHLORIDE 108 mmol/L (98-107); CHOLESTEROL 129 mg/dl (0-200); CREATININE 0.93 mg/dl (0.60-1.40); GLUCOSE 146 mg/dl (70-99); POTASSIUM 4.3 mmol/L (3.5-5.1); SODIUM 143 mmol/L (136-145)
[2016-10-05 14:05] LABS: ALB/GLOB RATIO 0.9 (0.9-2); ALKALINE PHOSPHATASE 45 U/L (45-117); CHOLESTEROL/HDL RATIO 2.9; HDL CHOLESTEROL 44 mg/dl; LDL CHOLESTEROL CALCULATED 74 mg/dl; TRIGLYCERIDES 57 mg/dl (0-150); VERY LOW DENSITY LIPOPROT CALC 11 mg/dl
== END | disposition home or self-care (01) ==
LOC: C.LABBC 10:45
PROVIDERS: ATTEND Internal Medicine
DX: M48.06 Spinal stenosis, lumbar region (principal)

== ENCOUNTER → 2016-11-01 | Outpatient (CLI) | payer OTHER, BC ==
[~2016-11-01] MED LIST changes: -SENN-61 PO
--- NOTE | 2016-11-01 13:32 | DIAGNOSTIC IMAGING REPORT ---
ULTRASOUND VENOUS DOPPLER LWR EXT BILA CLINICAL HISTORY: Bilateral leg edema COMPARISON STUDY: No previous studies for comparison. FINDINGS: Real-time and color flow Doppler imaging were performed. Flow was seen within the femoral, popliteal and calf veins with no intraluminal thrombus demonstrated. The saphenous vein is patent. IMPRESSION: No evidence of lower extremity DVT. Electronically signed by: Bigg Sears M.D. 11/01/2016 1:30 PM Dictated Date/Time: 11/01/2016 1:30 PM
== END | disposition home or self-care (01) ==
LOC: C.ULTRBC 12:29
PROVIDERS: ATTEND Physician Assistant Medical
DX: R60.0 Localized edema (principal)

== ENCOUNTER → 2016-11-07 | Outpatient (CLI) | payer OTHER, BC ==
[~2016-11-07] MED LIST changes: +CHRO1CAP7 PO; +GLUC1CAP35 PO; +GLUC1TAB94 PO; +GLYB-236 PO; +KRIL1CAP21 PO; +LPR25 PO; +MAGN250T22 PO; +MULTCAP94 PO; +MULTCHW PO; +VITACAP36 PO; +VTMD400 PO
== END | disposition home or self-care (01) ==
LOC: C.LAB 11:05
PROVIDERS: ATTEND Nurse Practitioner Family
DX: R35.0 Frequency of micturition (principal); R33.9 Retention of urine, unspecified

== ENCOUNTER → 2016-11-16 | Outpatient (CLI) | payer OTHER, BC ==
[2016-11-16 17:17] LABS: BASO % 0.3 %; BASO ABS # 0.02 K/uL (0-0.2); COMPLETE YES; EOS % 1.3 %; HEMATOCRIT 33.6 % (42-52); IG% 0.5 %; LYMPH % 43.6 %; MEAN CELL VOLUME 89.8 fL (80-100); MEAN CORPUSCULAR HEMOGLOBIN 29.4 pg (25-34); MEAN CORPUSCULAR HGB CONC 32.7 g/dl (32-36); MEAN PLATELET VOLUME 9.3 fL (7.4-10.4); MONO % 10.9 %; NEUT % 43.4 %; PLATELET COUNT 305 K/uL (130-400); RED BLOOD COUNT 3.74 M/uL (4.7-6.1); WHITE BLOOD COUNT 5.96 K/uL (4.8-10.8)
[2016-11-16 17:31] LABS: FERRITIN 10.4 ng/ml (8.0-388.0)
== END ==
LOC: C.LABBC 14:29
PROVIDERS: ATTEND Internal Medicine
DX: D62 Acute posthemorrhagic anemia (principal)

== ENCOUNTER → 2016-12-02 | Outpatient (CLI) | payer OTHER, BC | END | disposition home or self-care (01) | LOC: C.LAB 13:55 | PROVIDERS: ATTEND Urology | DX: N39.0 Urinary tract infection, site not specified (principal); R33.9 Retention of urine, unspecified; R35.0 Frequency of micturition; R39.89 Other symptoms and signs involving the genitourinary system ==

== ENCOUNTER → 2016-12-05 | Day surgery (SDC) | payer OTHER, BC | END | disposition home or self-care (01) | LOC: C.LAB 14:46 → C.ACU 15:00 | PROVIDERS: ATTEND Nurse Practitioner Family | DX: R39.9 Unspecified symptoms and signs involving the genitourinary system (principal); R35.0 Frequency of micturition ==

== ENCOUNTER 2017-03-21 07:18 | Day surgery (SDC) | payer OTHER, BC ==
[2017-03-08 13:25] VITALS: BMI 23.0
--- NOTE | 2017-03-08 14:09 | PAT Medication Instructions ---
Service Date Mar 08, 2017. Current Home Medication List Cholecalciferol (Vitamin D 400 Iu), 400 INTER.UNIT PO QPM Cinnamon (Cinnamon), 500 MG PO QAM Clopidogrel (Plavix), 75 MG PO 4XWK Divalproex Sodium (Depakote Delay Rel), 500 MG PO QAM Doxycycline Monohydrate (Monodox), 100 MG PO QAM Enalapril Maleate (Enalapril Maleate), 10 MG PO QAM Glyburide/Metformin (Glucovance 2.5/500 Mg *), 1 TABLET PO BID Krill Oil (Maximum Red Krill 300 mg), 300 MG PO QAM Magnesium Oxide (Mag-Ox), 250 MG PO QPM Metformin Hcl (Metformin Hcl Er), 500 MG PO QPM Multiple Vitamins W/ Minerals (Ocuvite), 1 TAB PO QAM Multivitamin (Multivitamin), 1 TABLET PO QAM Prednisolone Acetate 1% Oph (Pred Forte 1% Oph), 1 DROP OPL QID Ranitidine (Zantac), 150 MG PO HS PRN for heartburn Simvastatin (Zocor), 40 MG PO HS Sitagliptin (Januvia), 100 MG PO QAM Tamsulosin Hcl (Flomax), 0.4 MG PO HS Tocopheryl Acet,Dl-Alpha (Vitamin E), 200 INTER.UNIT PO QAM Medication Instructions For Your Scheduled Surgery - Hold the following medications as of 03/16/17 per surgeon's instructions: Clopidogrel (Plavix), 75 MG PO 4XWK - Hold the following medications 2 weeks prior to surgery: Krill Oil (Maximum Red Krill 300 mg), 300 MG PO QAM Cinnamon (Cinnamon), 500 MG PO QAM Tocopheryl Acet,Dl-Alpha (Vitamin E), 200 INTER.UNIT PO QAM - Hold the following medications 48 hours prior to surgery: Glyburide/Metformin (Glucovance 2.5/500 Mg *), 1 TABLET PO BID Metformin Hcl (Metformin Hcl Er), 500 MG PO QPM - Hold the following medications the morning of surgery: Multiple Vitamins W/ Minerals (Ocuvite), 1 TAB PO QAM Multivitamin (Multivitamin), 1 TABLET PO QAM Sitagliptin (Januvia), 100 MG PO QAM Enalapril Maleate (Enalapril Maleate), 10 MG PO QAM - Take the following medications the morning of surgery with a sip of water OTHERWISE NOTHING TO EAT OR DRINK AFTER MIDNIGHT: Prednisolone Acetate 1% Oph (Pred Forte 1% Oph), 1 DROP OPL QID Doxycycline Monohydrate (Monodox), 100 MG PO QAM Divalproex Sodium (Depakote Delay Rel), 500 MG PO QAM - Take the following medications as scheduled the night before surgery: Tamsulosin Hcl (Flomax), 0.4 MG PO HS Ranitidine (Zantac), 150 MG PO HS PRN for heartburn Simvastatin (Zocor), 40 MG PO HS Cholecalciferol (Vitamin D 400 Iu), 400 INTER.UNIT PO QPM Magnesium Oxide (Mag-Ox), 250 MG PO QPM Prednisolone Acetate 1% Oph (Pred Forte 1% Oph), 1 DROP OPL QID If you have any questions please call us at [phone] or [phone] or [phone]
[2017-03-08 14:50] LABS: BASO % 0.2 %; BASO ABS # 0.01 K/uL (0-0.2); COMPLETE YES; EOS % 1.5 %; HEMATOCRIT 33.6 % (42-52); IG% 0.2 %; LYMPH % 29.2 %; LYMPH ABS # 1.59 K/uL (1.2-3.4); MEAN CELL VOLUME 87.3 fL (80-100); MEAN CORPUSCULAR HEMOGLOBIN 28.8 pg (25-34); MEAN PLATELET VOLUME 9.6 fL (7.4-10.4); MONO % 11.4 %; NEUT % 57.5 %; PLATELET COUNT 174 K/uL (130-400); RED BLOOD COUNT 3.85 M/uL (4.7-6.1); WHITE BLOOD COUNT 5.45 K/uL (4.8-10.8)
[2017-03-08 14:56] LABS: BUN/CREATININE RATIO 25.4 (10-20); CALCIUM 9.5 mg/dl (8.5-10.1); CREATININE 1.2 mg/dl (0.60-1.40); POTASSIUM 4.2 mmol/L (3.5-5.1)
[~2017-03-21] VITALS: Ht 188 cm; Wt 81.8 kg
[~2017-03-21 07:18] MED LIST changes: -ASCO500T3 PO; -CEFU1TAB36 PO; -CHRO1CAP7 PO; +CIPROFLOXACIN / D5W 400 MG IV SCH; -GLCSC750600 PO; -GLUC1CAP35 PO; -GLUC1TAB94 PO; -GLYB-236 PO; -KRIL1CAP21 PO; +LACTATED RINGER'S 1000ML 1,000 ML IV SCH; -LPR25 PO; -MAGN250T22 PO; -MISCCAP80 PO; -MULTCAP94 PO; -MULTCHW PO; -NITR1OIN EXT; -PRED1SUS3 OPL; -PSYL55.43 PO; -VITACAP36 PO; -VTMD400 PO
[2017-03-21] MEDS ORDERED: MIDAZOLAM HCL 1 MG/ML 2ML VIAL ONE (07:43)
[2017-03-21] MEDS ORDERED: LIDOCAINE HCL 2% 2 ML VIAL (20MG/ML) ONE (07:43)
[2017-03-21] MEDS ORDERED: PROPOFOL IV EMULSION 10 MG/ML 20 ML VIAL IV ONE (07:43)
[2017-03-21] MEDS ORDERED: DEXAMETHASONE SOD INJ 4 MG/ML VIAL ONE (07:43)
[2017-03-21] MEDS ORDERED: FENTANYL CITRATE INJ 50 MCG/1 ML 2 ML VIAL ONE (07:43)
[2017-03-21] MEDS ORDERED: ONDANSETRON INJ 2 MG/ML 2 ML VIAL ONE (07:43)
[2017-03-21 07:56] VITALS: Ht 188 cm; Wt 81.8 kg
[2017-03-21] MEDS ORDERED: ONDANSETRON INJ 2 MG/ML 2 ML VIAL IV PRN (08:15)
[2017-03-21] MEDS ORDERED: ATROPINE SULFATE 0.1 MG/ML 5ML SYR IV PRN (08:15)
[2017-03-21] MEDS ORDERED: EpHEDrine SULFATE INJ 50 MG/ML AMP IV PRN (08:15)
[2017-03-21] MEDS ORDERED: FENTANYL CITRATE INJ 50 MCG/1 ML 2 ML VIAL IV PRN (08:15)
[2017-03-21] MEDS ORDERED: CEFU1TAB36 PO (08:24)
--- NOTE | 2017-03-21 08:30 | History & Physical Bridge Note ---
H&P Re-Evaluation Bridge Note: I have examined the patient, reviewed the History & Physical and in the interval since the performance of the History & Physical I have noted the following changes of clinical significance: No changes noted
[2017-03-21] MEDS ORDERED: DOXY100C76 PO (08:37)
[2017-03-21] MEDS ORDERED: ASCO500T3 PO (08:40)
[2017-03-21] MEDS ORDERED: CINN1CAP2 PO (08:40)
[2017-03-21] MEDS ORDERED: MISCCAP80 PO (08:40)
[2017-03-21] MEDS ORDERED: SODIUM CHLORIDE 0.9% 1000ML 1,000 ML IV SCH (09:22)
--- NOTE | 2017-03-21 09:22 | Discharge Instructions ---
Discharge Instructions Date of Service Mar 21, 2017. Admission Reason for Admission: Benign Prostatic Hypertrophy Discharge Discharge Diagnosis / Problem: urinary retention Discharge Goals Goal(s): Decrease discomfort, Improve function, Increase independence, Improve disease control, Prevent Disease Progression Activity Recommendations Activity Limitations: resume your previous activity Lifting Limitations: none Exercise/Sports Limitations: none May Resume Sexual Activity: when tolerated Shower/Bathe: no limitations Driving or Machine Use: resume 1 day after discharge . Instructions / Follow-Up Instructions / Follow-Up Please come to Dr. Crenshaw's office tomorrow morning to have your catheter removed Discharge Diet Recommended Diet: Regular Diet Procedures Procedures Performed: Cystoscopy; Urolift Pending Studies Studies pending at discharge: no Medical Emergencies . Who to Call and When: Medical Emergencies: If at any time you feel your situation is an emergency, please call 911 immediately. . Non-Emergent Contact Non-Emergency issues call your: Urologist Call Non-Emergent contact if: you have a fever, temperature is above 101.5, your pain is not controlled, your pain is worsening . . "Provider Documentation" section prepared by Christiano Wesley. . VTE Core Measure Inpt VTE Proph given/why not?: Other Anticoagulation (please resume your Plavix tomorrow)
--- NOTE | 2017-03-21 09:28 | [facility] Operative Report ---
Operative Report Operative Date Mar 21, 2017. Pre-Operative Diagnosis BPH Post-Operative Diagnosis BPH Procedure(s) Performed Cystoscopy; Urolift Surgeon Flower Resistance Brazer Surgeon(s) none Estimated Blood Loss 0 mL Findings Lateral lobe hypertrophy of the prostate; wide caliber bulbar stricture Specimens Npone per surgeon Drains 16 Faroese Kemp Anesthesia MAC Complication(s) None Disposition Recovery Room / PACU (stable) Indications Urinary retention Description of Procedure Patient was identified in the preoperative holding area, appropriate informed consents were reviewed and completed and the patient was transported to the operating suite. Upon arrival he received appropriate preoperative antibiotics in the form of ciprofloxacin. Adequate sedation was achieved, and he was placed in dorsal lithotomy position where he was sterilely prepped and draped in standard fashion. I begin the case by passing a visual obturator with 0 lens. Spectrum of the urethra revealed a healthy-appearing mucosa. He had a slight bulbar stricture, however this was easily navigated visible with the scope. Prostate was inspected, and he was noted to have lateral lobe hypertrophy and a modestly high bladder neck. Full inspection of the bladder was carried out. There were no tumors, stones, or other abnormalities. I then exchanged visual obturator for the first uro-lift device. The first suture was deployed on the right side of the prostate approximately 1 cm in from the bladder neck. A mere image suture was then deployed on the left. A third suture was placed adjacent to the verumontanum on the right. A fourth suture was placed in a mirror image of this location on the left. There was excellent hemostasis. I reinspected the bladder and prostate and noted an excellent anterior channel. A Kemp catheter was inserted and the case concluded. She was taken to the PACU in stable condition. There were no complications. I attest to the content of the Intraoperative Record and any orders documented therein. Any exceptions are noted below.
[2017-03-21] MEDS ORDERED: ACETAMINOPHEN 325 MG TAB PO PRN (09:30)
[2017-03-21] MEDS ORDERED: OXYCODONE/ACETAMINOPHEN 5-325 TAB PO PRN ×2 (09:30)
--- NOTE | 2017-03-21 09:39 | Anesthesiology Progress Note ---
Anesthesia Post Op Note Date & Time Mar 21, 2017 at 09:39 Vital Signs Pain Intensity: 0 Vital Signs Past 12 Hours Date Time Temp Pulse Resp B/P (MAP) Pulse Ox O2 Delivery O2 Flow Rate FiO2 03/21/17 09:24 36 72 16 114/68 100 Oxymask 10 Notes Mental Status: alert / awake / arousable, participated in evaluation Pt Amnestic to Procedure: Yes Nausea / Vomiting: adequately controlled Pain: adequately controlled Airway Patency, RR, SpO2: stable & adequate BP & HR: stable & adequate Hydration State: stable & adequate Anesthetic Complications: no major complications apparent
[2017-03-21 10:05] VITALS: BP 139/79; PULSE 65; TEMP 36.4; O2SAT 97
[2017-03-21 10:35] VITALS: BP 144/68; PULSE 56; TEMP 36.4; O2SAT 96
[2017-03-21 11:05] VITALS: BP 142/75; PULSE 61; TEMP 36.4; O2SAT 95
[2017-05-17] MEDS ORDERED: GLUC1CAP35 PO (02:14)
[2017-05-17] MEDS ORDERED: MULTCHW PO (02:14)
[2017-05-17] MEDS ORDERED: KRIL1CAP21 PO (02:14)
[2017-05-17] MEDS ORDERED: VTMD400 PO (02:14)
[2017-05-17] MEDS ORDERED: GLYB-236 PO (02:14)
[2017-05-17] MEDS ORDERED: MAGN250T22 PO (02:14)
[2017-05-17] MEDS ORDERED: CHRO1CAP7 PO (02:14)
[2017-05-17] MEDS ORDERED: GLUC1TAB94 PO (02:14)
[2017-05-17] MEDS ORDERED: VITACAP36 PO (02:14)
[2017-05-17] MEDS ORDERED: MULTCAP94 PO (02:14)
[2017-05-20] MEDS ORDERED: LPR25 PO (09:42)
[2017-05-20] MEDS ORDERED: DOXY100C76 PO (09:42)
== END 2017-03-21 12:10 | disposition home or self-care (01) ==
LOC: C.ACU 07:18
PROVIDERS: ATTEND Urology
DX: N40.1 Benign prostatic hyperplasia with lower urinary tract symptoms (principal); R33.9 Retention of urine, unspecified; E11.9 Type 2 diabetes mellitus without complications; K21.9 Gastro-esophageal reflux disease without esophagitis; E78.5 Hyperlipidemia, unspecified; N52.9 Male erectile dysfunction, unspecified; I10 Essential (primary) hypertension; Z90.10 Acquired absence of unspecified breast and nipple; Z86.010 Personal history of colon polyps; Z82.49 Family history of ischemic heart disease and other diseases of the circulatory system; Z83.3 Family history of diabetes mellitus

== ENCOUNTER → 2017-05-05 | Outpatient (CLI) | payer OTHER, BC ==
[~2017-05-05] MED LIST changes: +ASCO500T3 PO; +CEFU1TAB36 PO; -CIPROFLOXACIN / D5W 400 MG IV SCH; -LACTATED RINGER'S 1000ML 1,000 ML IV SCH; +MISCCAP80 PO
[2017-05-05 14:01] LABS: BASO % 0.4 %; BASO ABS # 0.02 K/uL (0-0.2); COMPLETE YES; EOS % 4.3 %; IG% 0.4 %; LYMPH % 44.2 %; LYMPH ABS # 2.49 K/uL (1.2-3.4); MEAN CELL VOLUME 89.8 fL (80-100); MEAN CORPUSCULAR HEMOGLOBIN 30.3 pg (25-34); MEAN CORPUSCULAR HGB CONC 33.8 g/dl (32-36); MONO % 9.8 %; NEUT % 40.9 %; PLATELET COUNT 194 K/uL (130-400); RED BLOOD COUNT 4.12 M/uL (4.7-6.1); WHITE BLOOD COUNT 5.63 K/uL (4.8-10.8)
[2017-05-05 14:24] LABS: ALT/SGPT 17 U/L (12-78); AST/SGOT 26 U/L (15-37); BLOOD UREA NITROGEN 15 mg/dl (7-18); BUN/CREATININE RATIO 17.2 (10-20); CALCIUM 8.9 mg/dl (8.5-10.1); CARBON DIOXIDE 24 mmol/L (21-32); CHLORIDE 109 mmol/L (98-107); CREATININE 0.87 mg/dl (0.60-1.40); GLUCOSE 167 mg/dl (70-99); POTASSIUM 4.4 mmol/L (3.5-5.1); SODIUM 140 mmol/L (136-145)
[2017-05-05 14:33] LABS: ALKALINE PHOSPHATASE 60 U/L (45-117); FERRITIN 19.2 ng/ml (8.0-388.0); TOTAL IRON BINDING CAPACITY 400 mcg/dl (250-450)
[2017-05-05 15:11] LABS: ESTIMATED AVERAGE GLUCOSE 143 mg/dl; HA1C FLAG Normal (Normal)
== END | disposition home or self-care (01) ==
LOC: C.LABBC 12:03
PROVIDERS: ATTEND Internal Medicine
DX: E78.5 Hyperlipidemia, unspecified (principal); E11.9 Type 2 diabetes mellitus without complications; M48.06 Spinal stenosis, lumbar region; K21.9 Gastro-esophageal reflux disease without esophagitis; I10 Essential (primary) hypertension; R26.9 Unspecified abnormalities of gait and mobility; D62 Acute posthemorrhagic anemia; D64.9 Anemia, unspecified

== ENCOUNTER → 2017-05-09 | Outpatient (CLI) | payer OTHER, BC ==
--- NOTE | 2017-05-09 11:19 | DIAGNOSTIC IMAGING REPORT ---
GI SERIES W/AIR ROUTINE CLINICAL HISTORY: K21.9 Gastroesophageal reflux disease [id number] COMPARISON STUDY: None. FLUOROSCOPY TIME: 0.7 minutes.. FINDINGS: The study was terminated early due to silent aspiration during the examination. The visualized portions of the esophagus are normal in course and caliber. Mild esophageal dysmotility. No hiatus hernia. No gastroesophageal reflux. IMPRESSION: The study was terminated early due to silent aspiration. There is mild esophageal dysmotility. Video swallow should be performed for further evaluation. Electronically signed by: Luis Cruz M.D. 05/09/2017 11:17 AM Dictated Date/Time: 05/09/2017 11:15 AM
== END | disposition home or self-care (01) ==
LOC: C.RAD 10:46
PROVIDERS: ATTEND Internal Medicine
DX: K21.9 Gastro-esophageal reflux disease without esophagitis (principal); K22.8 Other specified diseases of esophagus

== ENCOUNTER → 2017-06-20 | Outpatient (CLI) | payer OTHER, BC ==
[~2017-06-20] MED LIST changes: -CEFU1TAB36 PO; -CHOL400C7 PO; +CHRO1CAP7 PO; -CINN1CAP2 PO; +GLYB-236 PO; -KRIL1CAP14 PO; +KRIL1CAP21 PO; +LPR25 PO; +MAGN250T22 PO; -MAGN400T6 PO; -MULT-188 PO; -MULT-506 PO; +MULTCAP94 PO; +MULTCHW PO; -TAMS0.4C38 PO; -VITA100C4 PO; +VITACAP36 PO; +VTMD400 PO; -[UNRECOGNIZED DRUG - CODE] PO
--- NOTE | 2017-06-20 14:57 | DIAGNOSTIC IMAGING REPORT ---
CERVICAL WITHOUT CONTRAST HISTORY: 86 years-old Male M48.02 Cervical spinal stenosis upper back pain with numbness of the hands. Cervical spine stenosis. COMPARISON: None available. TECHNIQUE: Multiplanar multisequence MRI the cervical spine was obtained without contrast. FINDINGS: The business banking manager localizer images demonstrate no gross abnormality of the neck or thorax. Posterior fossa structures are unremarkable. No cerebellar tonsillar herniation. Moderate cerebellar atrophy. No acute cervical spine fracture or subluxation. No focal bone marrow edema. 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 Subcortical cyst is noted involving the posterior inferior C3 vertebral body, 5 mm. Multilevel discogenic degenerative changes and facet arthropathy as below. C2-C3: Mild intervertebral disc space narrowing with moderate facet arthrosis. No central canal or foraminal narrowing. C3-C4: Moderate intervertebral disc space narrowing with based posterior disc osteophyte complex favoring the right lateral recess and right foramen. Moderate facet arthrosis. Findings cause moderate left and moderate to severe right foraminal stenosis with moderate right lateral recess narrowing. Mild central canal stenosis. C4-C5: Moderate to severe intervertebral disc space narrowing with broad-based posterior disc osteophyte complex and moderate facet arthrosis. There is mild right lateral recess and moderate to severe right foraminal narrowing. Left foramen demonstrates mild to moderate narrowing. Mild central canal narrowing. C5-C6: Moderate intervertebral disc space narrowing with broad-based posterior disc osteophyte complex favoring the right lateral recess and right foramen is noted in addition to moderate facet arthropathy. There is mild central canal, moderate right lateral recess, moderate to severe right and severe left foraminal narrowing. C6-C7: Moderate to severe intervertebral disc space narrowing with broad-based posterior disc osteophyte complex and moderate facet arthropathy. Flattening of the ventral thecal sac without significant central canal stenosis. Mild bilateral foraminal narrowing. C7-T1: Mild to moderate intervertebral disc space narrowing with broad-based posterior disc bulge and moderate facet arthropathy. No central canal or foraminal narrowing. Posterior disc bulge noted at T2-T3 which flattens the ventral thecal sac. No central canal or foraminal narrowing. IMPRESSION: 1. No acute cervical spine fracture or subluxation. No focal bone marrow edema. 2. Multilevel discogenic degenerative changes and facet arthropathy as above with mild central canal stenosis at C3-C4, C4-C5 and C5-C6. 3. Multilevel foraminal narrowing as detail level by level above. The above report was generated using voice recognition software. It may contain grammatical, syntax or spelling errors. Electronically signed by: Abhilash Antunez M.D. 06/20/2017 2:56 PM Dictated Date/Time: 06/20/2017 2:41 PM
== END | disposition home or self-care (01) ==
LOC: C.MRI 13:36
PROVIDERS: ATTEND Internal Medicine
DX: M48.02 Spinal stenosis, cervical region (principal)

== ENCOUNTER → 2017-09-19 | Outpatient (CLI) | payer OTHER, BC ==
[~2017-09-19] MED LIST changes: +RANI150T85 PO; -ZNTT/150 PO
[2017-09-19 13:51] LABS: BASO % 0.4 %; BASO ABS # 0.02 K/uL (0-0.2); EOS % 2.4 %; EOS ABS # 0.13 K/uL (0-0.5); HEMATOCRIT 39.3 % (42-52); HEMOGLOBIN 13.5 g/dL (14.0-18.0); IG# 0.02 K/uL (0.00-0.02); LYMPH % 43.7 %; LYMPH ABS # 2.41 K/uL (1.2-3.4); MEAN CORPUSCULAR HEMOGLOBIN 32.3 pg (25-34); MEAN CORPUSCULAR HGB CONC 34.4 g/dl (32-36); MEAN PLATELET VOLUME 10.5 fL (7.4-10.4); MONO % 8.9 %; MONO ABS # 0.49 K/uL (0.11-0.59); NEUT % 44.2 %; NEUT ABS # 2.44 K/uL (1.4-6.5); PLATELET COUNT 181 K/uL (130-400); RED CELL DISTRIBUTION WIDTH CV 14.2 % (11.5-14.5); RED CELL DISTRIBUTION WIDTH SD 48.6 fL (36.4-46.3); WHITE BLOOD COUNT 5.51 K/uL (4.8-10.8)
[2017-09-19 14:06] LABS: BLOOD UREA NITROGEN 17 mg/dl (7-18); CALCIUM 9.3 mg/dl (8.5-10.1); CARBON DIOXIDE 24 mmol/L (21-32); CREATININE 1.06 mg/dl (0.60-1.40); GLUCOSE 189 mg/dl (70-99); POTASSIUM 4.6 mmol/L (3.5-5.1); SODIUM 138 mmol/L (136-145)
[2017-09-19 14:09] LABS: HEMOGLOBIN A1C 6.9 % (4.5-5.6)
== END | disposition home or self-care (01) ==
LOC: C.LABBC 11:38
PROVIDERS: ATTEND Internal Medicine
DX: E11.9 Type 2 diabetes mellitus without complications (principal); I10 Essential (primary) hypertension; D64.9 Anemia, unspecified

== ENCOUNTER 2019-09-20 14:09 | Inpatient (IN) ==
[2019-09-20] MEDS ORDERED: fentaNYL citrate 100 MCG/2 ML VIAL IV PRN (14:50)
[2019-09-20] MEDS ORDERED: ONDANSETRON INJ 2 MG/ML 2 ML VIAL IV STA (14:50)
[2019-09-20] MEDS ORDERED: SODIUM CHLORIDE 0.9% 1000ML 1,000 ML IV SCH (15:00)
[2019-09-20 15:30] LABS: Basophils # (auto) 0.02 K/uL (0-0.2); Basophils % (auto) 0.2 %; Eosinophils % (auto) 0.9 %; Hemoglobin 13.3 g/dL (14.0-18.0); Immature Granulocytes # (auto) 0.08 K/uL (0.00-0.02); Immature Granulocytes % (auto) 0.7 %; Lymphocytes # (auto) 1.83 K/uL (1.2-3.4); Lymphocytes % (auto) 16.2 %; Mean Corpuscular Hemoglobin 34.4 pg (25-34); Mean Corpuscular Hgb Conc 34.1 g/dL (32-36); Mean Corpuscular Volume 100.8 fL (80-100); Mean Platelet Volume 10.4 fL (7.4-10.4); Monocytes # (auto) 0.73 K/uL (0.11-0.59); Monocytes % (auto) 6.4 %; Neutrophils # (auto) 8.57 K/uL (1.4-6.5); Neutrophils % (auto) 75.6 %; Platelet Count 176 K/uL (130-400); RDW Coefficient of Variation 13.6 % (11.5-14.5); RDW Standard Deviation 49.4 fL (36.4-46.3); Red Blood Count 3.87 M/uL (4.7-6.1); White Blood Count 11.33 K/uL (4.8-10.8)
[2019-09-20 15:48] LABS: Albumin Level 3.7 gm/dl (3.4-5.0); BUN Creatinine Ratio 17.9 (10-20); Calcium 9.4 mg/dl (8.5-10.1); Est GFR (African American) 70.1; Est GFR (Non-African American) 60.5; Potassium 4.6 mmol/L (3.5-5.1)
[2019-09-20 15:51] LABS: Bilirubin,Total 0.6 mg/dl (0.2-1); Globulin 3.5 gm/dl (2.5-4.0); Total Protein 7.2 gm/dl (6.4-8.2)
--- NOTE | 2019-09-20 16:22 | CT Scan Report ---
CT lumbar spine wo con CT DOSE: 1801.75 mGy.cm CLINICAL HISTORY: Severe back pain status post trauma TECHNIQUE: Helical images were acquired in transverse plane. Reformatted sagittal and coronal images were reviewed. A dose lowering technique was utilized adhering to the principles of ALARA. CONTRAST: No contrast was administered COMPARISON STUDY: July 27, 2018 FINDINGS: L1-2 level: There is mild retrolisthesis of L1 on L2. There is minimal spinal canal narrowing. There is moderate to severe bilateral foraminal stenosis. L2-3 level: There is a circumferential disc bulge. There is moderate spinal stenosis. Moderate right- sided foraminal narrowing, and mild left-sided foraminal narrowing. L3-4 level: There is a circumferential disc bulge with moderate to severe spinal stenosis. There is n o significant foraminal narrowing L4-5 level: There is a circumferential disc bulge with moderate spinal stenosis. There is no signific ant foraminal narrowing L5-S1 level: There is no evidence of significant disc bulge or focal herniation. There is no evidence of spinal or foraminal stenosis. No vertebral body fractures are visualized. There is a right L1 transverse process fracture. There is an old left L1 transverse osseous fracture. There is an old right 12th rib fracture. IMPRESSION: 1. Acute right L1 transverse process fracture 2. No vertebral body fractures identified 3. Moderately advanced multilevel spondylytic changes with moderate spinal stenosis at the L2-3 level , moderate to severe spinal stenosis at the L3-4 level, and moderate spinal stenosis at the L4-5 leve l. In addition there is moderate to severe bilateral foraminal narrowing the L1-2 level. ACT 112: Negative or not required by law. Electronically signed by: Bigg Sears M.D. 09/20/2019 4:21 PM
--- NOTE | 2019-09-20 16:25 | Emergency Department Note ---
Entered by Simon Diallo acting as a scribe for History of Present Illness General Chief complaint: Back Injury/Pain Source: patient Limitations: no limitations History of Present Illness Onset (ago): hour(s) 6 Location: back Pain Consistency: + intermittent Maximum Pain Intensity: 10 Quality: + sharp Associated symptoms: + denies other symptoms (urinary incontinence, hitting his head, passing out) The patient is a 88 year old male who presents to the Emergency Room with complaints of intermittent and sharp lower back pain starting 6 hours ago. The patient states he fell at home and then crawled to call 911. He states EMS was able to pick him up off the floor and then they left. He states he talked to a physician and was told to the ED. He denies hitting his head or passing out. He denies having urinary incontinence. Home Medications Home Medications Medication Instructions Recorded Confirmed Type C,E,zinc,copper [id number] 1 cap PO QAM 05/02/18 09/20/19 History [Ocuvite Adult 50 Plus] clopidogrel 75 mg PO SUTUTHSA 05/02/18 09/20/19 History enalapril maleate 10 mg PO QAM 05/02/18 09/20/19 History magnesium 250 mg PO BID 05/02/18 09/20/19 History ranitidine HCl [Zantac] 150 mg PO BID PRN 05/02/18 09/20/19 History simvastatin 40 mg PO QPM 05/02/18 09/20/19 History vitamin E 200 units PO QAM 05/02/18 09/20/19 History cholecalciferol (vitamin D3) 5,000 units PO QPM 07/25/18 09/20/19 History [Vitamin D3] cinnamon bark-chromium picolin 1 cap PO QAM 07/25/18 09/20/19 History rxvlx-rnaup-8-cey-ihq-bgouuy 1 cap PO QAM 07/25/18 09/20/19 History [krill oil] lactobacillus combination no.4 1 cap PO QAM 07/25/18 09/20/19 History [Probiotic] radfluev-vwg-GW-lycopen-lutein 1 tab PO QAM 07/25/18 09/20/19 History [Centrum Silver] alum-mag hydroxide-simeth [Antacid 0 ml PO DIRECTED PRN 02/16/19 09/20/19 History Plus Anti-Gas] ascorbic acid (vitamin C) [Vitamin 500 mg PO QPM 02/16/19 09/20/19 History C] bisacodyl 5 mg PO QAM 02/16/19 09/20/19 History docusate sodium 50 mg PO BID 02/16/19 09/20/19 History finasteride 5 mg PO QPM 02/16/19 09/20/19 History metformin 500 mg PO QPM 02/16/19 09/20/19 History sennosides 8.6 mg PO QPM 02/16/19 09/20/19 History tamsulosin 0.4 mg PO HS 02/16/19 09/20/19 History glipizide 2.5 mg-metformin 500 mg 1 tab PO BID #180 tab 06/19/19 09/20/19 Rx tablet trospium 20 mg tablet 20 mg PO BID 90 Days #180 tab 06/21/19 09/20/19 Rx sitagliptin 100 mg tablet 100 mg PO QAM #90 tab 07/02/19 09/20/19 Rx divalproex 500 mg PO BID 07/28/19 09/20/19 History blood sugar diagnostic #100 ea 08/20/19 Rx doxycycline hyclate 50 mg PO QAM 09/20/19 09/20/19 History Allergies Allergy/AdvReac Type Severity Reaction Status Date / Time No Known Drug Allergies Allergy . Verified 09/20/19 14:59 Past Med/Surg History Medical History Anemia (Chronic) Arthritis (Chronic) Benign prostatic hyperplasia with urinary obstruction (Chronic) Cervical radiculopathy (Chronic) Cervical spinal stenosis (Chronic) CVA (cerebral vascular accident) (Chronic) Diabetes (Chronic) Gait disorder (Chronic) Gastroesophageal reflux disease (Chronic) Herniated disc (Chronic) Herpes zoster (Acute) Right CN V1 distribution with eye involvement 02/2019 Hyperlipidemia (Chronic) Incontinence (Chronic) LBBB (left bundle branch block) (Chronic) Left hip pain (Chronic) Lumbar canal stenosis (Chronic) Neck pain (Chronic) 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) Surgical History H/O colonoscopy Family History Brother Diabetes FH: coronary artery bypass surgery Hypertension Sister Diabetes Father Acute myocardial infarction Mother Cardiac failure Hypertension Other No significant family history Social History Preferred Language: Yi Communication Ability: Effective Visual Impairment: No Limitations Hearing Ability: Use of Hearing Aid 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 and A total of 10 systems reviewed and were otherwise negative Physical Exam Vital Signs Vital Signs - 24 hr 09/20/19 14:17 09/20/19 15:07 09/20/19 16:14 Temperature 36.5 C Temperature Source Oral Pulse Rate 88 Pulse Rate [Apical] 87 80 Pulse Rhythm Regular Pulse Strength Normal Respiratory Rate 18 21 19 Respiratory Effort / Characteristics Non-Labored Spontaneous Respiratory Depth Normal Respiratory Pattern Regular Blood Pressure 149/78 H Blood Pressure [Left Arm] 149/78 H 139/77 Blood Pressure Mean 101 Blood Pressure Mean [Left Arm] 101 97 Blood Pressure Position Lying Pulse Oximetry 96 94 96 Oxygen Delivery Method Room Air Room Air Sepsis Recent Fever Within 48 Hours No Sepsis New/Unexplained Change in Mental Status No Sepsis Action Taken by Nursing No Action Required Vital signs reviewed. General: Well-appearing elderly male. Hard of hearing and in some discomfort. HEENT: No scleral icterus, PERRLA, neck supple. Atraumatic. Hard of hearing. Cardiovascular: Regular rate and rhythm, no extra sounds. Pulmonary: Clear to auscultation bilaterally, normal work of breathing. Abdomen: Soft, nontender, nondistended, positive bowel sounds. Musculoskeletal: Atraumatic, no peripheral edema. Tender along the distal, tho racic, and upper lumbar spine. No step-off. No deformity. No bruising. Full strength of bilateral lower extremities. Neurologic: Patient awake alert and oriented x 3, equal strength in all 4 extremities. Cranial nerves 2 through 12 grossly intact. Skin: Warm, dry, no rash Course Course 1450: The patient was evaluated in room C11B, and a complete history and physical examination were performed. 1713: I reevaluated the patient. I updated the patient on his labs and imaging results. I recommended admission, and he is agreeable. 1719: I spoke with Dr. Kyle - orthopedics spine surgery. He recommends giving the patient a TLSO brace. 1724: I discussed the patient's case with Dr. Rey - [facility] Hospitalist. She will evaluate the patient for further management. Administered Medications Acetaminophen (Tylenol) 650 mg PO Q4H PRN PRN Reason: Pain or Fever Stop: 10/20/19 20:27 Last Admin: 09/21/19 19:53 Dose: 650 mg Documented by: [id number] Admin: 09/21/19 08:47 Dose: 650 mg Documented by: [id number] Admin: 09/21/19 02:58 Dose: 650 mg Documented by: [id number] Admin: 09/20/19 22:34 Dose: 650 mg Documented by: [id number] Ascorbic Acid (Vitamin C) 500 mg PO QPM [facility] Stop: 10/20/19 20:59 Last Admin: 09/21/19 20:23 Dose: 500 mg Documented by: [id number] Admin: 09/20/19 22:16 Dose: 500 mg Documented by: [id number] Bisacodyl (Dulcolax) 5 mg PO QAM NILAY Stop: 10/21/19 08:59 Last Admin: 09/21/19 08:47 Dose: 5 mg Documented by: [id number] Calcitonin [place] (Fortical) 1 sprays NA DAILY [facility] Stop: 10/20/19 20:27 Last Admin: 09/21/19 08:38 Dose: 1 sprays Documented by: [id number] Admin: 09/20/19 22:10 Dose: 1 sprays Documented by: [id number] Clopidogrel Bisulfate (Plavix) 75 mg PO SuTuThSa@0900 [facility] Stop: 10/21/19 18:41 Last Admin: 09/21/19 18:25 Dose: 75 mg Documented by: [id number] Divalproex Sodium (Depakote Delay Release) 500 mg PO BID NILAY Stop: 10/20/19 20:59 Last Admin: 09/21/19 20:20 Dose: 500 mg Documented by: [id number] Admin: 09/21/19 08:38 Dose: 500 mg Documented by: [id number] Admin: 09/20/19 22:13 Dose: 500 mg Documented by: [id number] Docusate Sodium (Colace) 100 mg PO BID NILAY Stop: 10/20/19 20:59 Last Admin: 09/21/19 20:21 Dose: 100 mg Documented by: [id number] Admin: 09/21/19 08:37 Dose: 100 mg Documented by: [id number] Admin: 09/20/19 22:12 Dose: 100 mg Documented by: [id number] Doxycycline Hyclate (Vibramycin) 50 mg PO QAM NILAY Stop: 10/21/19 08:59 Last Admin: 09/21/19 08:37 Dose: 50 mg Documented by: [id number] Enalapril Maleate (Vasotec) 10 mg PO QAM NILAY Stop: 10/21/19 08:59 Last Admin: 09/21/19 08:37 Dose: 10 mg Documented by: [id number] Finasteride (Proscar) 5 mg PO QPM [facility] Stop: 10/20/19 20:59 Last Admin: 09/21/19 20:22 Dose: 5 mg Documented by: [id number] Admin: 09/20/19 22:15 Dose: 5 mg Documented by: [id number] Fish Oil (Sunnyside-3 (Purified Fish Oil)) 1 gm PO QAM NILAY Stop: 10/21/19 08:59 Last Admin: 09/21/19 08:38 Dose: 1 gm Documented by: [id number] Heparin Sodium (Porcine) (Heparin Sodium (Porcine)) 5,000 units SQ Q12 [facility] Stop: 10/20/19 20:59 Last Admin: 09/21/19 20:26 Dose: 5,000 units Documented by: [id number] Cosigned by: [id number] Admin: 09/21/19 08:39 Dose: 5,000 units Documented by: [id number] Cosigned by: [id number] Admin: 09/20/19 22:16 Dose: 5,000 units Documented by: [id number] Cosigned by: [id number] Insulin Aspart (Novolog Flexpen) 0 units SC ACHS NILAY Stop: 10/20/19 21:59 Last Admin: 09/21/19 20:28 Dose: Not Given Documented by: [id number] Cosigned by: [id number] Admin: 09/21/19 17:57 Dose: 6 units Documented by: [id number] Cosigned by: [id number] Admin: 09/21/19 13:18 Dose: 11 units Documented by: [id number] Cosigned by: [id number] Admin: 09/21/19 08:47 Dose: 8 units Documented by: [id number] Cosigned by: [id number] Admin: 09/20/19 22:17 Dose: 7 units Documented by: [id number] Cosigned by: [id number] Lactobacillus Acidophilus (Floranex) 1 tab PO QAM NILAY Stop: 10/21/19 08:59 Last Admin: 09/21/19 08:37 Dose: 1 tab Documented by: [id number] Lidocaine (Lidoderm 5%) 1 patch TD QAM PRN PRN Reason: pain Stop: 10/20/19 20:27 Last Admin: 09/21/19 06:05 Dose: 1 patch Documented by: [id number] Magnesium Oxide (Mag-Ox) 400 mg PO BID [facility] Stop: 10/20/19 20:59 Last Admin: 09/21/19 20:21 Dose: 400 mg Documented by: [id number] Admin: 09/21/19 08:38 Dose: 400 mg Documented by: [id number] Admin: 09/20/19 22:15 Dose: 400 mg Documented by: [id number] Miscellaneous (Remove Lidoderm Patch) 1 ea N/A DAILY@2100 [facility] Stop: 10/21/19 20:59 Last Admin: 09/21/19 20:22 Dose: 1 ea Documented by: [id number] Miscellaneous (Order Awaiting Action) 1 ea N/A QS [facility] Stop: 10/21/19 00:00 Last Admin: 09/21/19 15:38 Dose: Not Given Documented by: [id number] Admin: 09/21/19 08:32 Dose: Not Given Documented by: [id number] Admin: 09/21/19 00:35 Dose: Not Given Documented by: [id number] Multivitamins/Minerals (Multivitamin W/ Minerals Tab) 1 tab PO QAM [facility] Stop: 10/21/19 08:59 Last Admin: 09/21/19 08:38 Dose: 1 tab Documented by: [id number] Nystatin (Mycostatin) 1 appln EXT BID [facility] Stop: 10/21/19 08:59 Last Admin: 09/21/19 20:22 Dose: 1 appln Documented by: [id number] Admin: 09/21/19 08:38 Dose: 1 appln Documented by: [id number] Oxycodone/Acetaminophen (Percocet 5mg/325mg) 1 tab PO Q4H PRN PRN Reason: Pain Stop: 10/05/19 09:39 Last Admin: 09/21/19 17:58 Dose: 1 tab Documented by: [id number] Senna/Docusate Sodium (Senokot S) 1 tab PO QAM NILAY Stop: 10/20/19 20:27 Last Admin: 09/21/19 08:37 Dose: 1 tab Documented by: [id number] Admin: 09/20/19 22:11 Dose: 1 tab Documented by: [id number] Sennosides (Senokot) 8.6 mg PO QPM [facility] Stop: 10/20/19 20:59 Last Admin: 09/21/19 20:22 Dose: 8.6 mg Documented by: [id number] Admin: 09/20/19 22:11 Dose: 8.6 mg Documented by: [id number] Simvastatin (Zocor) 40 mg PO QPM [facility] Stop: 10/20/19 20:59 Last Admin: 09/21/19 20:20 Dose: 40 mg Documented by: [id number] Admin: 09/20/19 22:16 Dose: 40 mg Documented by: [id number] Tamsulosin HCl (Flomax) 0.4 mg PO HS [facility] Stop: 10/20/19 20:59 Last Admin: 09/21/19 20:21 Dose: 0.4 mg Documented by: [id number] Admin: 09/20/19 22:13 Dose: 0.4 mg Documented by: [id number] Vitamin D (Vitamin D3) 5,000 units PO QPM [facility] Stop: 10/20/19 20:59 Last Admin: 09/21/19 20:23 Dose: 5,000 units Documented by: [id number] Admin: 09/20/19 22:16 Dose: 5,000 units Documented by: [id number] Vitamin E (Vitamin E) 200 units PO QAM [facility] Stop: 10/21/19 08:59 Last Admin: 09/21/19 08:37 Dose: 200 units Documented by: [id number] Discontinued Medications Baclofen (Lioresal) 10 mg PO ONE ONE Stop: 09/21/19 21:11 Last Admin: 09/21/19 21:58 Dose: 10 mg Documented by: [id number] Fentanyl Citrate (Fentanyl Citrate) 50 mcg IV Q1H PRN PRN Reason: Pain Stop: 10/04/19 14:49 Last Admin: 09/20/19 15:05 Dose: 50 mcg Documented by: [id number] Sodium Chloride (Nss 1000ml) 1,000 mls @ 100 mls/hr IV .Q10H NILAY Stop: 09/21/19 00:59 Last Infusion: 09/20/19 16:13 Dose: 0 mls/hr Documented by: [id number] Admin: 09/20/19 15:06 Dose: 100 mls/hr Documented by: [id number] Ondansetron HCl (Zofran) 4 mg IV NOW STA Stop: 09/20/19 14:51 Last Admin: 09/20/19 15:05 Dose: 4 mg Documented by: [id number] Oxycodone/Acetaminophen (Percocet 5mg/325mg) Confirm Administered Dose 1 tab PO .STK-MED ONE Stop: 09/21/19 09:43 Last Admin: 09/21/19 09:45 Dose: 1 tab Documented by: [id number] Medical Decision Making Differential Diagnosis Differential diagnoses include major intracranial, cervical, spinal, thoracic, abdominal, pelvic and neurologic injury. Fracture, contusion, sprain, strain, laceration, abrasions included as well. Medical Records Attestation: I reviewed the patient's medical records. Home Medications Current Medication List: was personally reviewed by me Laboratory Data Attestation: I reviewed the patient's lab results. Result diagrams: 09/21/19 05:56 09/21/19 05:56 Lab Results 09/20/19 09/20/19 Range/Units 15:10 15:10 WBC 11.33 H (4.8-10.8) K/uL RBC 3.87 L (4.7-6.1) M/uL Hgb 13.3 L (14.0-18.0) g/dL Hct 39.0 L (42-52) % MCV 100.8 H (80-100) fL MCH 34.4 H (25-34) pg MCHC 34.1 (32-36) g/dL RDW Std Deviation 49.4 H (36.4-46.3) fL RDW Coeff of [place] 13.6 (11.5-14.5) % Plt Count 176 (130-400) K/uL MPV 10.4 (7.4-10.4) fL Immature Gran % (Auto) 0.7 % Neut % (Auto) 75.6 % Lymph % (Auto) 16.2 % [place] % (Auto) 6.4 % Eos % (Auto) 0.9 % Baso % (Auto) 0.2 % Immature Gran # (Auto) 0.08 H (0.00-0.02) K/uL Neut # (Auto) 8.57 H (1.4-6.5) K/uL Lymph # (Auto) 1.83 (1.2-3.4) K/uL [place] # (Auto) 0.73 H (0.11-0.59) K/uL Eos # (Auto) 0.10 (0-0.5) K/uL Baso # (Auto) 0.02 (0-0.2) K/uL Sodium 140 (136-145) mmol/L Potassium 4.6 (3.5-5.1) mmol/L Chloride 107 (98-107) mmol/L Carbon Dioxide 26 (21-32) mmol/L Anion Gap 7.0 (3-11) BUN 20 H (7-18) mg/dl Creatinine 1.10 (0.6-1.4) mg/dl Est Cr Clr Drug Dosing 56.0 ml/min Est GFR ( Amer) 70.1 Est GFR (Non-Af Amer) 60.5 BUN/Creatinine Ratio 17.9 (10-20) Glucose 174 H (70-99) mg/dl Calcium 9.4 (8.5-10.1) mg/dl Total Bilirubin 0.6 (0.2-1) mg/dl AST 26 (15-37) U/L ALT 15 (12-78) U/L Alkaline Phosphatase 59 (45-117) U/L Total Protein 7.2 (6.4-8.2) gm/dl Albumin 3.7 (3.4-5.0) gm/dl Globulin 3.5 (2.5-4.0) gm/dl Albumin/Globulin Ratio 1.0 (0.9-2) Imaging Data Radiologist's Impression: Radiology results as stated below per my review and the radiologist's interpretation: CT SCAN OF THE THORACIC SPINE WITHOUT IV CONTRAST CLINICAL HISTORY: Fall. Thoracic back pain. COMPARISON STUDY: MRI of the thoracic spine dated 06/21/2006. TECHNIQUE: CT scan of the thoracic spine is performed from the lower cervical spine to the upper lumbar spine. Images are reviewed in the axial, sagittal, and coronal planes. IV contrast was not administered for this examination. A dose lowering technique was utilized adhering to the principles of ALARA. FINDINGS: The skeletal structures are osteopenic. There is a mild chronic superior endplate compression deformity of T12. Vertebral body height is otherwise maintained throughout the thoracic spine. There is an acute horizontally oriented fracture through the superior endplate of T9 which extends through the disc space. There is widening between the fragments anteriorly. Fracture does not clearly extend through the posterior elements. No additional acute fracture is seen involving the thoracic spine. There is an acute appearing fracture at the tip of the right transverse process of L1. There are flowing anterior osteophytes seen throughout suggesting DISH. The transverse and spinous processes of the thoracic spine appear intact. Multilevel degenerative disc space narrowing is observed. There are healed right posterior rib fractures. No lytic or blastic lesion is seen. Paravertebral edema is noted at T8-T9. The para spinous soft tissues are normal as imaged noting fatty atrophy of the paraspinous musculature. The lung parenchyma is clear as visualized noting bibasilar scarring/atelectasis. There is atherosclerotic calcification of the thoracic aorta. Bilateral renal cysts are partially visualized and measure up to 3.4 cm. IMPRESSION: 1. There is a horizontally oriented fracture through the superior endplate of T9 which extends through the disc space at T8-T9. There is widening of the fragments anteriorly, with no clear involvement of the posterior elements. This fracture is likely unstable. 2. No additional acute fracture is seen involving the thoracic spine. 3. There is an acute appearing right transverse process fracture of L1. 4. 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 5. Additional findings as above. ACT 112: Negative or not required by law. Electronically signed by: Cyrus Larkin M.D. 09/20/2019 4:[address] lumbar spine wo con CT DOSE: 1801.75 mGy.cm CLINICAL HISTORY: Severe back pain status post trauma TECHNIQUE: Helical images were acquired in transverse plane. Reformatted sagittal and coronal images were reviewed. A dose lowering technique was utilized adhering to the principles of ALARA. CONTRAST: No contrast was administered COMPARISON STUDY: July 27, 2018 FINDINGS: L1-2 level: There is mild retrolisthesis of L1 on L2. There is minimal spinal canal narrowing. There is moderate to severe bilateral foraminal stenosis. L2-3 level: There is a circumferential disc bulge. There is moderate spinal stenosis. Moderate right-sided foraminal narrowing, and mild left-sided foraminal narrowing. L3-4 level: There is a circumferential disc bulge with moderate to severe spinal stenosis. There is no significant foraminal narrowing L4-5 level: There is a circumferential disc bulge with moderate spinal stenosis. There is no significant foraminal narrowing L5-S1 level: There is no evidence of significant disc bulge or focal herniation. There is no evidence of spinal or foraminal stenosis. No vertebral body fractures are visualized. There is a right L1 transverse process fracture. There is an old left L1 transverse osseous fracture. There is an old right 12th rib fracture. IMPRESSION: 1. Acute right L1 transverse process fracture 2. No vertebral body fractures identified 3. Moderately advanced multilevel spondylytic changes with moderate spinal stenosis at the L2-3 level, moderate to severe spinal stenosis at the L3-4 level, and moderate spinal stenosis at the L4-5 level. In addition there is moderate to severe bilateral foraminal narrowing the L1-2 level. ACT 112: Negative or not required by law. Electronically signed by: Bigg Sears M.D. 09/20/2019 4:21 PM Blood Pressure Blood Pressure Findings: Elevated blood pressure Blood Pressure Disposition: further management by hospitalist MDM Narrative This patient was evaluated and appeared to be in no significant distress, but in significant discomfort when moving. IV access was obtained and laboratory work was drawn. The patient was medicated with IV fentanyl and Zofran. CT scan of the thoracolumbar spine was performed and is read as above. There is an unstable fracture of T9 with extension into the T8-T9 disc space. The CT is also significant for a right transverse process fracture of L1. Patient was reevaluated and informed of the findings. I did discuss the case with Dr. Kyle of orthopedic spine. Given the patient's age, he is not a great candidate for surgical intervention however the fracture appears to be unstable. He has requested that the hospitalist admit the patient and he is recommended a TLSO brace. Dr. Rey of the hospitalist service was consulted. Patient was informed of the plan and agrees. Impression & Plan Fracture of T9 vertebra, L1 vertebral fracture Discharge Plan Visit Data *Final* Discharge Date/Time: 09/20/19 19:26 Chief Complaint: Back Injury/Pain ED Provider: Sarah Rodriguez Discharge Problem: Fracture of T9 vertebra, L1 vertebral fracture Patient Disposition: Admitted As Inpatient Discharge Instructions Interventions: ED Discharge Assessment Last Done: 09/20/19 19:26 Discharge Problem: Fracture of T9 vertebra Qualifiers: Encounter type: initial encounter Fracture type: closed Fracture morphology: burst- unstable Qualified Code(s): S22.072A - Unstable burst fracture of T9-T10 vertebra, initial encounter for closed fracture L1 vertebral fracture Qualifiers: Encounter type: initial encounter Fracture type: closed Fracture morphology: other fracture Qualified Code(s): S32.018A - Other fracture of first lumbar vertebra, initial encounter for closed fracture The scribe's documentation has been prepared under my direction and personally reviewed by me in its entirety. I confirm that the note above accurately reflects all work, treatment, procedures, and medical decision making performed by me.
--- NOTE | 2019-09-20 16:33 | CT Scan Report ---
CT SCAN OF THE THORACIC SPINE WITHOUT IV CONTRAST CLINICAL HISTORY: Fall. Thoracic back pain. COMPARISON STUDY: MRI of the thoracic spine dated 06/21/2006. TECHNIQUE: CT scan of the thoracic spine is performed from the lower cervical spine to the upper lumb ar spine. Images are reviewed in the axial, sagittal, and coronal planes. IV contrast was not adminis tered for this examination. A dose lowering technique was utilized adhering to the principles of ALANicolas Nunez. FINDINGS: The skeletal structures are osteopenic. There is a mild chronic superior endplate compressi on deformity of T12. Vertebral body height is otherwise maintained throughout the thoracic spine. The re is an acute horizontally oriented fracture through the superior endplate of T9 which extends throu gh the disc space. There is widening between the fragments anteriorly. Fracture does not clearly exte nd through the posterior elements. No additional acute fracture is seen involving the thoracic spine. There is an acute appearing fracture at the tip of the right transverse process of L1. There are steff wing anterior osteophytes seen throughout suggesting DISH. The transverse and spinous processes of th e thoracic spine appear intact. Multilevel degenerative disc space narrowing is observed. There are h ealed right posterior rib fractures. No lytic or blastic lesion is seen. Paravertebral edema is noted at T8-T9. The paraspinous soft tissues are normal as imaged noting fatty atrophy of the paraspinous musculature. The lung parenchyma is clear as visualized noting bibasilar scarring/atelectasis. There is atherosclerotic calcification of the thoracic aorta. Bilateral renal cysts are partially visualize d and measure up to 3.4 cm. IMPRESSION: 1. There is a horizontally oriented fracture through the superior endplate of T9 which extends throug h the disc space at T8-T9. There is widening of the fragments anteriorly, with no clear involvement o f the posterior elements. This fracture is likely unstable. 2. No additional acute fracture is seen involving the thoracic spine. 3. There is an acute appearing right transverse process fracture of L1. 4. 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 5. Additional findings as above. ACT 112: Negative or not required by law. Electronically signed by: Cyrus Larkin M.D. 09/20/2019 4:32 PM
--- NOTE | 2019-09-20 19:39 | History & Physical Report ---
Date of Service September 20, 2019 Assessment & Plan (1) Fracture of T9 vertebra: Admit to [facility] Consult orthopedics Dr. Kyle, Pain management with calcitriol salmon, If patient still in pain would recommend lidocaine patch transdermal, Monitor electrolytes and replenish DVT prophylaxis Heparin 5000 units every 12 hours Physical and Occupational Therapy once when patient is evaluated by Dr. Kyle and once when he has brace placed. Full code Present on Admission?: Yes (2) L1 vertebral fracture: As the above Present on Admission?: Yes (3) Hyperlipidemia: Fasting lipid panel pending. Continue home medicine simvastatin 40 mg p.o. every afternoon. Present on Admission?: Yes (4) Gastroesophageal reflux disease: Stable, continue home medicine ranitidine 150 mg p.o. twice daily PRN. Present on Admission?: Yes (5) Benign prostatic hyperplasia with urinary obstruction: Stable, continue tamsulosin 0.4 mg p.o. nightly. Continue finasteride 5 mg p.o. every afternoon. Present on Admission?: Yes (6) Diabetes: Diabetes mellitus type 2. Hold hypoglycemic agents while patient is in the hospital prevent hypoglycemic episodes and kidney injury if patient needs to have study with contrast. Glycemic control per pharmacy. Sliding scale insulin and Accu-Cheks before meals and at bedtime. Present on Admission?: Yes (7) CVA (cerebral vascular accident): Stable at this time, continue simvastatin 40 mg p.o. every afternoon. Continue controlling blood pressure with Enbrel 10 mg p.o. every morning. Continue divalproex 500 mg p.o. twice daily to prevent seizures. Divalproex level pending Present on Admission?: Yes History of Present Illness Chief Complaint: Status post mechanical fall Primary Care Provider: Jass Osorio MD The patient is an 88 years old male with past medical history of sensorineural hearing loss, lumbar canal stenosis, left bundle branch block, stool incontinence wearing diapers, hyperlipidemia, BPH, diabetes mellitus type 2, prior CVA who was brought by EMS with a complaint of intermittent and sharp lower back pain that started 6 hours ago. The patient states he fell at home and crawled to call 911. Patient stated that EMS was able to pick him up off of the floor and then they left. Patient denies hitting his head, losing consciousness or having syncope during this event. Patient denies fever, chills, chest pain, shortness of breath, abdominal pain, frequency, urgency. Labs are reviewed: WBC is 11.33, hemoglobin 13.3, hematocrit 39, platelets 176, sodium 140, potassium 4.6, chloride 107, carbon dioxide 26, anion gap 7, BUN 20, creatinine 1.1, GFR 60.5, hemoglobin A1c 7.5, from July 17, 2019, calcium 9.4, total bilirubin 0.6, AST 26, ALT 15, alkaline phosphatase 59, total protein 7.2, albumin 3.7, globulin 3.5. Urine analysis and culture pending, valproic acid level pending. X-rays of the thoracic spine shows there is a horizontally oriented fracture through the superior endplate of T9 which extends through the disc space T8-T9. There is a widening of the fragments anteriorly with no clear involvement of the posterior elements. This fracture is likely unstable. No additional acute fracture is seen involving the thoracic spine. There is an acute appearing right transverse process fracture of L1. 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 Acute right L1 transverse process fracture. No vertebral body fracture identified. Moderately advanced multilevel spondylotic changes with moderate spinal stenosis at the L2-L3 level. Moderate to severe spinal stenosis at L3-L4 level and moderate spinal stenosis at the L4-L5 level. In addition there is a moderate to severe bilateral foraminal narrowing at L1-L2 level. Decision was made to admit patient to [facility] for further evaluation and treatment of the vertebral fractures of which one is unstable. Allergies Allergy/AdvReac Type Severity Reaction Status Date / Time No Known Drug Allergies Allergy . Verified 09/20/19 14:59 Home Medications Home Medications Medication Instructions Recorded Confirmed Type C,E,zinc,copper [id number] 1 cap PO QAM 05/02/18 09/20/19 History [Ocuvite Adult 50 Plus] clopidogrel 75 mg PO SUTUTHSA 05/02/18 09/20/19 History enalapril maleate 10 mg PO QAM 05/02/18 09/20/19 History magnesium 250 mg PO BID 05/02/18 09/20/19 History ranitidine HCl [Zantac] 150 mg PO BID PRN 05/02/18 09/20/19 History simvastatin 40 mg PO QPM 05/02/18 09/20/19 History vitamin E 200 units PO QAM 05/02/18 09/20/19 History cholecalciferol (vitamin D3) 5,000 units PO QPM 07/25/18 09/20/19 History [Vitamin D3] cinnamon bark-chromium picolin 1 cap PO QAM 07/25/18 09/20/19 History muwas-ijfca-1-goa-srt-hdyygi 1 cap PO QAM 07/25/18 09/20/19 History [krill oil] lactobacillus combination no.4 1 cap PO QAM 07/25/18 09/20/19 History [Probiotic] ggnivpzo-vrl-CO-lycopen-lutein 1 tab PO QAM 07/25/18 09/20/19 History [Centrum Silver] alum-mag hydroxide-simeth [Antacid 0 ml PO DIRECTED PRN 02/16/19 09/20/19 History Plus Anti-Gas] ascorbic acid (vitamin C) [Vitamin 500 mg PO QPM 02/16/19 09/20/19 History C] bisacodyl 5 mg PO QAM 02/16/19 09/20/19 History docusate sodium 50 mg PO BID 02/16/19 09/20/19 History finasteride 5 mg PO QPM 02/16/19 09/20/19 History metformin 500 mg PO QPM 02/16/19 09/20/19 History sennosides 8.6 mg PO QPM 02/16/19 09/20/19 History tamsulosin 0.4 mg PO HS 02/16/19 09/20/19 History glipizide 2.5 mg-metformin 500 mg 1 tab PO BID #180 tab 06/19/19 09/20/19 Rx tablet trospium 20 mg tablet 20 mg PO BID 90 Days #180 tab 06/21/19 09/20/19 Rx sitagliptin 100 mg tablet 100 mg PO QAM #90 tab 07/02/19 09/20/19 Rx divalproex 500 mg PO BID 07/28/19 09/20/19 History blood sugar diagnostic #100 ea 08/20/19 Rx doxycycline hyclate 50 mg PO QAM 09/20/19 09/20/19 History Past Med/Surg History Medical History Anemia (Chronic) Arthritis (Chronic) Benign prostatic hyperplasia with urinary obstruction (Chronic) Cervical radiculopathy (Chronic) Cervical spinal stenosis (Chronic) CVA (cerebral vascular accident) (Chronic) Diabetes (Chronic) Gait disorder (Chronic) Gastroesophageal reflux disease (Chronic) Herniated disc (Chronic) Herpes zoster (Acute) Right CN V1 distribution with eye involvement 02/2019 Hyperlipidemia (Chronic) Incontinence (Chronic) LBBB (left bundle branch block) (Chronic) Left hip pain (Chronic) Lumbar canal stenosis (Chronic) Neck pain (Chronic) 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) Surgical History H/O colonoscopy Family History Brother Diabetes FH: coronary artery bypass surgery Hypertension Sister Diabetes Father Acute myocardial infarction Mother Cardiac failure Hypertension Other No significant family history Social History Preferred Language: Citizen Of [place] Communication Ability: Effective Visual Impairment: No Limitations Hearing Ability: Use of Hearing Aid Beliefs That Will Affect Care: None marital status: / Current Living Situation: Alone current occupational status: retired Feels Safe at Home: Yes Smoking Status: Never smoker Hx Alcohol Use: No Hx Substance Use: No Review of Systems Review of Systems: All systems reviewed & are unremarkable except as noted in HPI & below Physical Exam Constitutional: WD/WN, vitals as above well developed Eyes: PERRL, conjunctivae normal, anicteric sclerae ENMT: Ears: + hearing impairment Neck: trachea midline, no thyromegaly Respiratory: normal respiratory effort, lungs clear to auscultation Cardiovascular: Heart Sounds: normal S1 and normal S2 Palpation: + palpable S3 Vessels: dorsalis pedis pulses present Gastrointestinal (Abdomen): normal bowel sounds, soft, nontender, no hepatosplenomegaly Musculoskeletal: no cyanosis or clubbing, extremities motor strength 5/5 Skin: no rashes, warm and dry Neurologic: patellar DTR's 2+ bilat, sensation intact Psychiatric: A+Ox3, euthymic affect Lymphatic: no cervical or axillary lymphadenopathy Results & Data Vital Signs (Past 12 Hours) Vital Signs Temp Pulse Pulse Resp BP BP Pulse Ox 09/20/19 19:17 78 20 130/80 96 09/20/19 18:22 78 19 128/80 94 09/20/19 16:14 80 19 139/77 96 09/20/19 15:07 87 21 149/78 H 94 09/20/19 14:17 36.5 C 88 18 149/78 H 96 Code Status & VTE Plan Code Status Full code VTE Prophylaxis Plan VTE Prophylaxis will be ordered: Yes PG Care Time/CCT Total # of Minutes Spent Total Time Spent with Patient: Total time spent is greater than 50% in coordination of care (as documented) at patient's floor/unit and/or counseling patient: Coding Level of Care Code 16084 Initial Inpt Care Lvl 3 Diagnoses Fracture of T9 vertebra S22.072A Encounter type: initial encounter Fracture morphology: burst- unstable Fracture type: closed L1 vertebral fracture S32.018A Encounter type: initial encounter Fracture morphology: other fracture Fracture type: closed Hyperlipidemia E78.5 Gastroesophageal reflux disease K21.9 Benign prostatic hyperplasia with urinary obstruction N40.1; N13.8 Diabetes E11.9 CVA (cerebral vascular accident) I63.9 (1) Fracture of T9 vertebra Encounter type: initial encounter Fracture morphology: burst- unstable Fracture type: closed Qualified Code(s): S22.072A - Unstable burst fracture of T9-T10 vertebra, initial encounter for closed fracture (2) L1 vertebral fracture Encounter type: initial encounter Fracture morphology: other fracture Fracture type: closed Qualified Code(s): S32.018A - Other fracture of first lumbar vertebra, initial encounter for closed fracture
[2019-09-20] MEDS ORDERED: DEXTROSE 50% 50 ML SYRINGE IV PRN (20:28)
[2019-09-20] MEDS ORDERED: GLUCAGON FOR INJ 1 MG VIAL SQ PRN (20:28)
[2019-09-20] MEDS ORDERED: GLUCOSE 10 TABS/TUBE PO PRN (20:28)
[2019-09-20] MEDS ORDERED: ALUMINUM/MAGNESIUM SUSP 30 ML UDC PO PRN (20:28)
[2019-09-20] MEDS ORDERED: GLUCOSE 40% GEL 15 GM TUBE PO PRN (20:28)
[2019-09-20] MEDS ORDERED: LIDOCAINE 5% 1 PATCH TD PRN (20:28)
[2019-09-20] MEDS ORDERED: CARBOHYDRATES FOR HYPOGLYCEMIA PO PRN (20:28)
[2019-09-20] MEDS ORDERED: ALUMINUM/MAGNESIUM/SIMETH (MAALOX MAX) 30 ML UDC PO PRN (20:28)
[2019-09-20] MEDS ORDERED: ONDANSETRON INJ 2 MG/ML 2 ML VIAL IV PRN (20:28)
[2019-09-20] MEDS ORDERED: PHARMACY GLYCEMIC MGMT CONSULT PRN (20:42)
[2019-09-20] MEDS ORDERED: TROSPIUM 20 MG PO SCH (21:00)
[2019-09-20] MEDS: CALCITONIN SALMON NA 200 IU/AC 3.7 ML BTL SCH (22:10)
[2019-09-20] MEDS: SENNA 8.6 MG TAB PO SCH (22:11)
[2019-09-20] MEDS: DOCUSATE SODIUM/SENNA 50/8.6MG TAB PO SCH (22:11)
[2019-09-20] MEDS: DOCUSATE SODIUM 100 MG CAP PO SCH (22:12)
[2019-09-20] MEDS: DIVALPROEX DELAY RELEASE 500 MG TAB PO SCH (22:13)
[2019-09-20] MEDS: TAMSULOSIN HCL 0.4 MG CAP PO SCH (22:13)
[2019-09-20] MEDS: FINASTERIDE 5 MG TAB PO SCH (22:15)
[2019-09-20] MEDS: MAGNESIUM OXIDE 400 MG TAB PO SCH (22:15)
[2019-09-20] MEDS: SIMVASTATIN 40 MG TAB PO SCH (22:16)
[2019-09-20] MEDS: ASCORBIC ACID 500 MG TAB PO SCH (22:16)
[2019-09-20] MEDS: HEPARIN SOD 5,000 UNIT/0.5 ML VIAL SQ SCH (22:16)
[2019-09-20] MEDS: CHOLECALCIFEROL 1,000 UNITS 25 MCG TAB PO SCH (22:16)
[2019-09-20] MEDS: INSULIN ASPART 100 UNITS/ML 3 ML PEN SC SCH (22:17)
[2019-09-20] MEDS: ACETAMINOPHEN 325 MG TAB PO PRN (22:34)
[2019-09-20 22:49] LABS: Appearance Urine Clear (Clear); Bilirubin Urine Negative (Negative); Blood Urine Negative (Negative); Color Urine Yellow; Glucose Urine UA Negative (Negative); Ketones Urine Negative (Negative); Leukocyte Esterase Urine Negative (Negative); Nitrite Urine Negative (Negative); Protein Urine Negative (Negative); Specific Gravity Urine 1.018 (1.000-1.030); Urobilinogen Urine Negative (Negative); pH Urine 7.5 (4.5-7.5)
[2019-09-21] MEDS: ACETAMINOPHEN 325 MG TAB PO PRN ×3 (02:58→19:53)
[2019-09-21 06:24] LABS: Basophils # (auto) 0.01 K/uL (0-0.2); Basophils % (auto) 0.1 %; Eosinophils # (auto) 0.09 K/uL (0-0.5); Eosinophils % (auto) 1.2 %; Hematocrit (blood only) 34.5 % (42-52); Hemoglobin 11.7 g/dL (14.0-18.0); Immature Granulocytes # (auto) 0.04 K/uL (0.00-0.02); Immature Granulocytes % (auto) 0.5 %; Lymphocytes # (auto) 1.92 K/uL (1.2-3.4); Lymphocytes % (auto) 25.5 %; Mean Corpuscular Hemoglobin 34.3 pg (25-34); Mean Corpuscular Hgb Conc 33.9 g/dL (32-36); Mean Corpuscular Volume 101.2 fL (80-100); Mean Platelet Volume 10.5 fL (7.4-10.4); Monocytes % (auto) 10.6 %; Neutrophils # (auto) 4.67 K/uL (1.4-6.5); Neutrophils % (auto) 62.1 %; Platelet Count 153 K/uL (130-400); RDW Coefficient of Variation 13.6 % (11.5-14.5); Red Blood Count 3.41 M/uL (4.7-6.1); White Blood Count 7.53 K/uL (4.8-10.8)
[2019-09-21 06:52] LABS: Albumin Level 2.9 gm/dl (3.4-5.0); BUN Creatinine Ratio 18.8 (10-20); Calcium 8.6 mg/dl (8.5-10.1); Creatinine Clr Calc Pharmacy 64.9 ml/min; Est GFR (African American) 83.7; Est GFR (Non-African American) 72.2; Potassium 4.4 mmol/L (3.5-5.1)
[2019-09-21 06:55] LABS: Albumin Globulin Ratio 0.9 (0.9-2); Bilirubin,Total 0.6 mg/dl (0.2-1); Globulin 3.2 gm/dl (2.5-4.0); Total Protein 6.1 gm/dl (6.4-8.2)
[2019-09-21 07:13] LABS: Estimated Average Glucose 174 mg/dl; Hemoglobin A1C 7.7 % (4.5-5.6)
[2019-09-21] MEDS: DOCUSATE SODIUM/SENNA 50/8.6MG TAB PO SCH (08:37)
[2019-09-21] MEDS: TOCOPHERYL, DL-ALPHA 100 UNITS CAP PO SCH (08:37)
[2019-09-21] MEDS: DOCUSATE SODIUM 100 MG CAP PO SCH ×2 (08:37→20:21)
[2019-09-21] MEDS: LACTOBACILLUS ACIDOPHILUS (FLORANEX) TAB PO SCH (08:37)
[2019-09-21] MEDS: ENALAPRIL MALEATE 10 MG TAB PO SCH (08:37)
[2019-09-21] MEDS: DOXYCYCLINE HYCLATE 50 MG CAP PO SCH (08:37)
[2019-09-21] MEDS: MAGNESIUM OXIDE 400 MG TAB PO SCH ×2 (08:38→20:21)
[2019-09-21] MEDS: OMEGA-3 (PURIFIED FISH OIL) 1 GM CAP PO SCH (08:38)
[2019-09-21] MEDS: CALCITONIN SALMON NA 200 IU/AC 3.7 ML BTL SCH (08:38)
[2019-09-21] MEDS: CEROVITE ADV FORMULA TAB PO SCH (08:38)
[2019-09-21] MEDS: NYSTATIN POWDER 15GM BTL EXT SCH ×2 (08:38→20:22)
[2019-09-21] MEDS: DIVALPROEX DELAY RELEASE 500 MG TAB PO SCH ×2 (08:38→20:20)
[2019-09-21] MEDS: HEPARIN SOD 5,000 UNIT/0.5 ML VIAL SQ SCH ×2 (08:39→20:26)
[2019-09-21] MEDS: INSULIN ASPART 100 UNITS/ML 3 ML PEN SC SCH ×4 (08:47→20:28)
[2019-09-21] MEDS: bisacodyL 5 MG TABEC PO SCH (08:47)
[2019-09-21] MEDS ORDERED: NON-FORMULARY MEDICATION (C,E,Zinc,Copper 11-Omega3s-Lut [Ocuvite Adult 50 Plus] 1 CAP) PO SCH (09:00)
[2019-09-21] MEDS ORDERED: [UNRECOGNIZED DRUG - OTHER] PO SCH (09:00)
[2019-09-21] MEDS ORDERED: OXYCODONE/ACETAMINOPHEN 5mg/325mg TAB PO ONE (09:42)
--- NOTE | 2019-09-21 10:34 | Pharmacy Report ---
Glycemic Control Consultation - Date of Service September 21, 2019 - Scope Scope: Glycemic Pharmacist consulted by Dr Rey on 09/20/19 for glycemic control and to write orders per [facility] inpatient glycemic control protocol - Objective Weight: 96.6 kg Accuchecks BSG (last 24hrs): 09/20/19 09/20/19 09/21/19 15:10 21:13 05:56 Glucose 174 H 115 H POC Glucose 176 H 09/21/19 08:43 Glucose POC Glucose 128 H Laboratory Data (last 24hrs): 09/20/19 09/21/19 15:10 05:56 Potassium 4.6 4.4 Carbon Dioxide 26 26 Anion Gap 7.0 4.0 Creatinine 1.10 0.95 Est Cr Clr Drug Dosing 56.0 64.9 HbA1c: Hemoglobin A1c 7.7 % (4.5-5.6) H 09/21/19 05:56 - Recent Pertinent Medications Outpatient Anti-diabetic Regimen: * Metformin 500mg PO Daily * Sitagliptin 100mg PO QAM * A1c = 7.7 % 09/21/19 Risk Factors for Insulin Resistance: * Diet: Type 2 DM - Assessment & Plan Assessment & Plan: ASSESSMENT: * 88 year old male admitted with T9 vertebral fracture. * Pt is maintained on oral antidiabetic agents as an outpatient * Oral agents are not recommended for inpatient use d/t drug interactions, changing PO intake, and difficulty titrating for acute hyper/hypoglycemia. ADA recommends re-initiating outpatient oral agents 1-2 days prior to discharge if/when appropriate if they were held on admission. * Will hold oral agents for admission and utilize SQ basal bolus insulin regimen which is the recommended regimen for inpatient glycemic control. * Will initiate weight based insulin dosing for insulin giuseppe patient and titrate based on BSG trends. PLAN FOR INPATIENT GLYCEMIC CONTROL: * Holding outpatient oral diabetes medications * Basal insulin - none at this time * Bolus insulin * NovoLog per scale ACHS or Q6hrs while NPO * Goal Range: Low 110 mg/dL - High 140 mg/dL * Correction Factor: 25 mg/dL/unit * Nutritional / Prandial insulin per carb ratio of 1 unit per 8 grams CHO consumed * Please note that the plan above was derived based on current level of insulin resistance and hospital stress. These recommendations are appropriate for inpatient admission only. Plan of care upon discharge will need to be reassessed to avoid potential outpatient hypo/hyperglycemia. Thank you.
--- NOTE | 2019-09-21 10:49 | Orthopedic Consultation ---
Date of Consultation September 21, 2019 Assessment & Plan (1) Fracture of T9 vertebra: Assessment T9 bony Chance fracture. Plan at this point his fracture pattern is highly unstable. We will fit him with a TLSO brace after which point we may initiate transfers to a chair and physical therapy. I believe he would be a good candidate for rehab. He will require serial x-rays to ensure appropriate healing. Present on Admission?: Yes History of Present Illness Reason for Consultation: Thoracic spine fracture Attending Physician: Joanna Rey MD History of Present Illness This is an 88-year-old male who presents to the emergency room last evening after a fall in his home. He does not recall how he fell. He does not recall how he landed. He does have a history of some left leg issues and weakness and believes that perhaps his left leg buckled which precipitated his fall. At this time he complains mostly of thoracolumbar back pain. He denies any pain radiating across his rib cage. Denies any numbness or tingling to the lower extremities. Allergies Allergy/AdvReac Type Severity Reaction Status Date / Time No Known Drug Allergies Allergy . Verified 09/20/19 14:59 Home Medications Home Medications Medication Instructions Recorded Confirmed Type C,E,zinc,copper [id number] 1 cap PO QAM 05/02/18 09/20/19 History [Ocuvite Adult 50 Plus] clopidogrel 75 mg PO SUTUTHSA 05/02/18 09/20/19 History enalapril maleate 10 mg PO QAM 05/02/18 09/20/19 History magnesium 250 mg PO BID 05/02/18 09/20/19 History ranitidine HCl [Zantac] 150 mg PO BID PRN 05/02/18 09/20/19 History simvastatin 40 mg PO QPM 05/02/18 09/20/19 History vitamin E 200 units PO QAM 05/02/18 09/20/19 History cholecalciferol (vitamin D3) 5,000 units PO QPM 07/25/18 09/20/19 History [Vitamin D3] cinnamon bark-chromium picolin 1 cap PO QAM 07/25/18 09/20/19 History iyndi-rxzdq-8-isj-dik-opwyrc 1 cap PO QAM 07/25/18 09/20/19 History [krill oil] lactobacillus combination no.4 1 cap PO QAM 07/25/18 09/20/19 History [Probiotic] pmjsbnbg-chz-GY-lycopen-lutein 1 tab PO QAM 07/25/18 09/20/19 History [Centrum Silver] alum-mag hydroxide-simeth [Antacid 0 ml PO DIRECTED PRN 02/16/19 09/20/19 History Plus Anti-Gas] ascorbic acid (vitamin C) [Vitamin 500 mg PO QPM 02/16/19 09/20/19 History C] bisacodyl 5 mg PO QAM 02/16/19 09/20/19 History docusate sodium 50 mg PO BID 02/16/19 09/20/19 History finasteride 5 mg PO QPM 02/16/19 09/20/19 History metformin 500 mg PO QPM 02/16/19 09/20/19 History sennosides 8.6 mg PO QPM 02/16/19 09/20/19 History tamsulosin 0.4 mg PO HS 02/16/19 09/20/19 History glipizide 2.5 mg-metformin 500 mg 1 tab PO BID #180 tab 06/19/19 09/20/19 Rx tablet trospium 20 mg tablet 20 mg PO BID 90 Days #180 tab 06/21/19 09/20/19 Rx sitagliptin 100 mg tablet 100 mg PO QAM #90 tab 07/02/19 09/20/19 Rx divalproex 500 mg PO BID 07/28/19 09/20/19 History blood sugar diagnostic #100 ea 08/20/19 Rx doxycycline hyclate 50 mg PO QAM 09/20/19 09/20/19 History Patient History Medical History Anemia (Chronic) Arthritis (Chronic) Benign prostatic hyperplasia with urinary obstruction (Chronic) Cervical radiculopathy (Chronic) Cervical spinal stenosis (Chronic) CVA (cerebral vascular accident) (Chronic) Diabetes (Chronic) Gait disorder (Chronic) Gastroesophageal reflux disease (Chronic) Herniated disc (Chronic) Herpes zoster (Acute) Right CN V1 distribution with eye involvement 02/2019 Hyperlipidemia (Chronic) Incontinence (Chronic) LBBB (left bundle branch block) (Chronic) Left hip pain (Chronic) Lumbar canal stenosis (Chronic) Neck pain (Chronic) 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) Surgical History H/O colonoscopy Family History Brother Diabetes FH: coronary artery bypass surgery Hypertension Sister Diabetes Father Acute myocardial infarction Mother Cardiac failure Hypertension Other No significant family history Social History Preferred Language: [place] Communication Ability: Effective Visual Impairment: No Limitations Hearing Ability: Use of Hearing Aid Freight Sorter Required: No Beliefs That Will Affect Care: None marital status: / Current Living Situation: Alone current occupational status: retired Feels Safe at Home: Yes Smoking Status: Never smoker Hx Alcohol Use: No Hx Substance Use: No Physical Exam Physical Exam: On exam is good strength testing lower extremities. He is relatively comfortable. Results & Data ([facility]) Vital Signs (Past 12 Hours) Vital Signs Temp Pulse Resp BP Pulse Ox 09/21/19 08:11 36.6 C 70 18 119/67 95 09/20/19 23:30 36.6 C 81 16 129/72 97 (1) Fracture of T9 vertebra Encounter type: initial encounter Fracture morphology: burst- unstable Fracture type: closed Qualified Code(s): S22.072A - Unstable burst fracture of T9-T10 vertebra, initial encounter for closed fracture
--- NOTE | 2019-09-21 16:27 | Hospitalist Progress Note ---
Date of Service September 21, 2019 Assessment & Plan (1) Fracture of T9 vertebra: Continue admit to [facility] Consult orthopedics Dr. Kyle, Pain management with calcitriol salmon, If patient still in pain would recommend lidocaine patch transdermal, Percocet 5/325 mg 1 tablet every 4 hours as needed for pain Monitor electrolytes and replenish DVT prophylaxis Heparin 5000 units every 12 hours Physical and Occupational Therapy once when patient is evaluated by Dr. Kyle and once when he has brace placed. Full code (2) L1 vertebral fracture: As the above (3) Hyperlipidemia: Fasting lipid panel pending. Continue home medicine simvastatin 40 mg p.o. every afternoon. (4) Gastroesophageal reflux disease: Stable, continue home medicine ranitidine 150 mg p.o. twice daily PRN. (5) Benign prostatic hyperplasia with urinary obstruction: Stable, continue tamsulosin 0.4 mg p.o. nightly. Continue finasteride 5 mg p.o. every afternoon. (6) Diabetes: Diabetes mellitus type 2. Hold hypoglycemic agents while patient is in the hospital prevent hypoglycemic episodes and kidney injury if patient needs to have study with contrast. Glycemic control per pharmacy. Sliding scale insulin and Accu-Cheks before meals and at bedtime. (7) CVA (cerebral vascular accident): Stable at this time, continue simvastatin 40 mg p.o. every afternoon. Continue controlling blood pressure with Enbrel 10 mg p.o. every morning. Continue divalproex 500 mg p.o. twice daily to prevent seizures. Divalproex level pending Admission and Anticipated Discharge Date Admission Date: September 20, 2019 Subjective Patient seen and examined at the bedside. Patient is resting comfortably in bed. Good p.o. intake. Hard of hearing. Patient denies fever, chills, chest pain, shortness of breath, abdominal pain, frequency, urgency. Review of Systems Review of Systems: All systems reviewed & are unremarkable except as noted in HPI & below Physical Exam Constitutional: WD/WN, vitals as above well developed Eyes: PERRL, conjunctivae normal, anicteric sclerae ENMT: Ears: + hearing impairment Neck: trachea midline, no thyromegaly Respiratory: normal respiratory effort, lungs clear to auscultation Cardiovascular: Heart Sounds: normal S1 and normal S2 Palpation: + palpable S3 Vessels: dorsalis pedis pulses present Gastrointestinal (Abdomen): normal bowel sounds, soft, nontender, no hepatosplenomegaly Musculoskeletal: no cyanosis or clubbing, extremities motor strength 5/5 Skin: no rashes, warm and dry Neurologic: patellar DTR's 2+ bilat, sensation intact Psychiatric: A+Ox3, euthymic affect Lymphatic: no cervical or axillary lymphadenopathy Results & Data ([facility]) Vital Signs (Past 12 Hours) Vital Signs Temp Pulse Resp BP Pulse Ox 09/21/19 15:19 36.4 C L 73 18 119/66 93 09/21/19 08:11 36.6 C 70 18 119/67 95 PG Care Time/CCT Total # of Minutes Spent Total Time Spent with Patient: Total time spent is greater than 50% in coordination of care (as documented) at patient's floor/unit and/or counseling patient: Coding Level of Care Code 11965 Subseq Hosp Care Lvl 3 Diagnoses Fracture of T9 vertebra S22.072A Encounter type: initial encounter Fracture morphology: burst- unstable Fracture type: closed L1 vertebral fracture S32.018A Encounter type: initial encounter Fracture morphology: other fracture Fracture type: closed Hyperlipidemia E78.5 Gastroesophageal reflux disease K21.9 Benign prostatic hyperplasia with urinary obstruction N40.1; N13.8 Diabetes E11.9 CVA (cerebral vascular accident) I63.9 (1) Fracture of T9 vertebra Encounter type: initial encounter Fracture morphology: burst- unstable Fracture type: closed Qualified Code(s): S22.072A - Unstable burst fracture of T9-T10 vertebra, initial encounter for closed fracture (2) L1 vertebral fracture Encounter type: initial encounter Fracture morphology: other fracture Fracture type: closed Qualified Code(s): S32.018A - Other fracture of first lumbar vertebra, initial encounter for closed fracture
[2019-09-21] MEDS: OXYCODONE/ACETAMINOPHEN 5mg/325mg TAB PO PRN (17:58)
[2019-09-21] MEDS: CLOPIDOGREL BISULFATE 75 MG TAB PO SCH (18:25)
[2019-09-21] MEDS: SIMVASTATIN 40 MG TAB PO SCH (20:20)
[2019-09-21] MEDS: TAMSULOSIN HCL 0.4 MG CAP PO SCH (20:21)
[2019-09-21] MEDS: FINASTERIDE 5 MG TAB PO SCH (20:22)
[2019-09-21] MEDS: SENNA 8.6 MG TAB PO SCH (20:22)
[2019-09-21] MEDS: CHOLECALCIFEROL 1,000 UNITS 25 MCG TAB PO SCH (20:23)
[2019-09-21] MEDS: ASCORBIC ACID 500 MG TAB PO SCH (20:23)
[2019-09-21] MEDS ORDERED: BACLOFEN 10 MG TAB PO ONE (21:10)
[2019-09-22] MEDS: OXYCODONE/ACETAMINOPHEN 5mg/325mg TAB PO PRN ×3 (01:00→12:31)
[2019-09-22 07:14] LABS: Basophils # (auto) 0.01 K/uL (0-0.2); Basophils % (auto) 0.1 %; Eosinophils # (auto) 0.11 K/uL (0-0.5); Eosinophils % (auto) 1.3 %; Hematocrit (blood only) 38.1 % (42-52); Hemoglobin 13.4 g/dL (14.0-18.0); Immature Granulocytes # (auto) 0.04 K/uL (0.00-0.02); Immature Granulocytes % (auto) 0.5 %; Lymphocytes # (auto) 1.85 K/uL (1.2-3.4); Lymphocytes % (auto) 21.6 %; Mean Corpuscular Hemoglobin 34.8 pg (25-34); Mean Corpuscular Hgb Conc 35.2 g/dL (32-36); Mean Platelet Volume 9.8 fL (7.4-10.4); Monocytes # (auto) 0.65 K/uL (0.11-0.59); Monocytes % (auto) 7.6 %; Neutrophils # (auto) 5.91 K/uL (1.4-6.5); Neutrophils % (auto) 68.9 %; Platelet Count 162 K/uL (130-400); RDW Coefficient of Variation 13.5 % (11.5-14.5); RDW Standard Deviation 48.4 fL (36.4-46.3); Red Blood Count 3.85 M/uL (4.7-6.1); White Blood Count 8.57 K/uL (4.8-10.8)
[2019-09-22 07:43] LABS: BUN Creatinine Ratio 15.7 (10-20); Calcium 8.7 mg/dl (8.5-10.1); Creatinine Clr Calc Pharmacy 62.3 ml/min; Est GFR (African American) 79.6; Est GFR (Non-African American) 68.7; Potassium 4.2 mmol/L (3.5-5.1)
[2019-09-22 07:45] LABS: Albumin Globulin Ratio 0.8 (0.9-2); Bilirubin,Total 0.9 mg/dl (0.2-1); Globulin 3.6 gm/dl (2.5-4.0); Total Protein 6.6 gm/dl (6.4-8.2)
--- NOTE | 2019-09-22 09:04 | Hospitalist Progress Note ---
Date of Service September 22, 2019 Assessment & Plan (1) Fracture of T9 vertebra: Continue admit to [facility] Consult orthopedics Dr. Kyle, Pain management with calcitriol salmon, If patient still in pain would recommend lidocaine patch transdermal, Percocet 5/325 mg 1 tablet every 4 hours as needed for pain, Morphine 0.5 mg IV Q2 hr prn for severe pain. Monitor electrolytes and replenish DVT prophylaxis Heparin 5000 units every 12 hours Physical and Occupational Therapy once when patient is evaluated by Dr. Kyle and once when he has brace placed. Full code (2) L1 vertebral fracture: As the above (3) Hyperlipidemia: Fasting lipid panel pending. Continue home medicine simvastatin 40 mg p.o. every afternoon. (4) Gastroesophageal reflux disease: Stable, continue home medicine ranitidine 150 mg p.o. twice daily PRN. (5) Benign prostatic hyperplasia with urinary obstruction: Stable, continue tamsulosin 0.4 mg p.o. nightly. Continue finasteride 5 mg p.o. every afternoon. (6) Diabetes: Diabetes mellitus type 2. Hold hypoglycemic agents while patient is in the hospital prevent hypoglycemic episodes and kidney injury if patient needs to have study with contrast. Glycemic control per pharmacy. Sliding scale insulin and Accu-Cheks before meals and at bedtime. (7) CVA (cerebral vascular accident): Stable at this time, continue simvastatin 40 mg p.o. every afternoon. Continue controlling blood pressure with Enbrel 10 mg p.o. every morning. Continue divalproex 500 mg p.o. twice daily to prevent seizures. Divalproex level pending Admission and Anticipated Discharge Date Admission Date: September 20, 2019 Subjective Patient seen and examined at the bedside. Patient is resting comfortably in be d. Good p.o. intake. Hard of hearing. Patient denies fever, chills, chest pain, shortness of breath, abdominal pain, frequency, urgency. Review of Systems Review of Systems: All systems reviewed & are unremarkable except as noted in HPI & below Physical Exam Constitutional: WD/WN, vitals as above well developed Eyes: PERRL, conjunctivae normal, anicteric sclerae ENMT: Ears: + hearing impairment Neck: trachea midline, no thyromegaly Respiratory: normal respiratory effort, lungs clear to auscultation Cardiovascular: Heart Sounds: normal S1 and normal S2 Palpation: + palpable S3 Vessels: dorsalis pedis pulses present Gastrointestinal (Abdomen): normal bowel sounds, soft, nontender, no hepatosplenomegaly Musculoskeletal: no cyanosis or clubbing, extremities motor strength 5/5 Skin: no rashes, warm and dry Neurologic: patellar DTR's 2+ bilat, sensation intact Psychiatric: A+Ox3, euthymic affect Lymphatic: no cervical or axillary lymphadenopathy Results & Data ([facility]) Vital Signs (Past 12 Hours) Vital Signs Temp Pulse Resp BP Pulse Ox 09/22/19 08:15 37.3 C 81 18 157/95 H 92 09/21/19 23:05 36.6 C 82 16 148/87 H 94 PG Care Time/CCT Total # of Minutes Spent Total Time Spent with Patient: Total time spent is greater than 50% in coordination of care (as documented) at patient's floor/unit and/or counseling patient: Coding Level of Care Code 04964 Subseq Hosp Care Lvl 3 Diagnoses Fracture of T9 vertebra S22.072A Encounter type: initial encounter Fracture morphology: burst- unstable Fracture type: closed L1 vertebral fracture S32.018A Encounter type: initial encounter Fracture morphology: other fracture Fracture type: closed Hyperlipidemia E78.5 Gastroesophageal reflux disease K21.9 Benign prostatic hyperplasia with urinary obstruction N40.1; N13.8 Diabetes E11.9 CVA (cerebral vascular accident) I63.9 (1) L1 vertebral fracture Encounter type: initial encounter Fracture morphology: other fracture Fracture type: closed Qualified Code(s): S32.018A - Other fracture of first lumbar vertebra, initial encounter for closed fracture (2) Fracture of T9 vertebra Encounter type: initial encounter Fracture morphology: burst- unstable Fracture type: closed Qualified Code(s): S22.072A - Unstable burst fracture of T9-T10 vertebra, initial encounter for closed fracture
[2019-09-22] MEDS: MAGNESIUM HYDROXIDE SUSP 30 ML UDC PO PRN (09:15)
[2019-09-22] MEDS: CALCITONIN SALMON NA 200 IU/AC 3.7 ML BTL SCH (09:15)
[2019-09-22] MEDS: CEROVITE ADV FORMULA TAB PO SCH (09:16)
[2019-09-22] MEDS: CLOPIDOGREL BISULFATE 75 MG TAB PO SCH (09:16)
[2019-09-22] MEDS: DOCUSATE SODIUM 100 MG CAP PO SCH ×2 (09:16→21:11)
[2019-09-22] MEDS: ENALAPRIL MALEATE 10 MG TAB PO SCH (09:16)
[2019-09-22] MEDS: bisacodyL 5 MG TABEC PO SCH (09:16)
[2019-09-22] MEDS: HEPARIN SOD 5,000 UNIT/0.5 ML VIAL SQ SCH ×2 (09:16→21:12)
[2019-09-22] MEDS: LACTOBACILLUS ACIDOPHILUS (FLORANEX) TAB PO SCH (09:16)
[2019-09-22] MEDS: DOXYCYCLINE HYCLATE 50 MG CAP PO SCH (09:16)
[2019-09-22] MEDS: DIVALPROEX DELAY RELEASE 500 MG TAB PO SCH ×2 (09:16→21:12)
[2019-09-22] MEDS: TOCOPHERYL, DL-ALPHA 100 UNITS CAP PO SCH (09:16)
[2019-09-22] MEDS: OMEGA-3 (PURIFIED FISH OIL) 1 GM CAP PO SCH (09:16)
[2019-09-22] MEDS: MAGNESIUM OXIDE 400 MG TAB PO SCH ×2 (09:16→21:13)
[2019-09-22] MEDS: NYSTATIN POWDER 15GM BTL EXT SCH ×2 (09:17→21:14)
[2019-09-22] MEDS: DOCUSATE SODIUM/SENNA 50/8.6MG TAB PO SCH (09:17)
[2019-09-22] MEDS: INSULIN ASPART 100 UNITS/ML 3 ML PEN SC SCH ×4 (09:19→21:19)
--- NOTE | 2019-09-22 10:34 | Orthopedic Progress Note ---
Date of Service September 22, 2019 Assessment & Plan (1) Fracture of T9 vertebra: At this time we are waiting for his TLSO brace to be fitted. Once this is completed would like to obtain x-rays of the thoracic spine. We will hopefully begin transfers to a chair and ambulation when the brace is placed. We will have to follow with serial x-rays to ensure there is no evidence of displacement across the fracture site. This would warrant possible surgical stabilization. Present on Admission?: Yes Admission and Anticipated Discharge Date Admission Date: September 20, 2019 Subjective Patient having considerable back spasms. Denies any leg pain. Denies any numbness and tingling. Physical Exam Physical Exam: Patient is neurologically intact is obviously uncomfortable when the nurses try to mobilize him to change linens. Results & Data ([facility]) Vital Signs (Past 12 Hours) Vital Signs Temp Pulse Resp BP Pulse Ox 09/22/19 08:15 37.3 C 81 18 157/95 H 92 09/21/19 23:05 36.6 C 82 16 148/87 H 94 (1) Fracture of T9 vertebra Encounter type: initial encounter Fracture morphology: burst- unstable Fracture type: closed Qualified Code(s): S22.072A - Unstable burst fracture of T9-T10 vertebra, initial encounter for closed fracture
[2019-09-22] MEDS: HYDROmorphone INJ 0.5 MG/0.5 ML SYR IV PRN ×2 (11:11→15:25)
[2019-09-22] MEDS: BACLOFEN 10 MG TAB PO PRN (15:09)
[2019-09-22] MEDS: TAMSULOSIN HCL 0.4 MG CAP PO SCH (21:12)
[2019-09-22] MEDS: FINASTERIDE 5 MG TAB PO SCH (21:14)
[2019-09-22] MEDS: SENNA 8.6 MG TAB PO SCH (21:16)
[2019-09-22] MEDS: SIMVASTATIN 40 MG TAB PO SCH (21:16)
[2019-09-22] MEDS: ASCORBIC ACID 500 MG TAB PO SCH (21:17)
[2019-09-22] MEDS: CHOLECALCIFEROL 1,000 UNITS 25 MCG TAB PO SCH (21:17)
[2019-09-22] MEDS: MoRPHine SULFATE 2 MG/ML CARP IV PRN (21:37)
[2019-09-23] MEDS: OXYCODONE/ACETAMINOPHEN 5mg/325mg TAB PO PRN ×3 (05:49→21:50)
[2019-09-23] MEDS: POLYETHYLENE (MIRALAX) 17 GM PACK PO PRN (05:49)
[2019-09-23] MEDS: MAGNESIUM HYDROXIDE SUSP 30 ML UDC PO PRN (05:50)
[2019-09-23 05:56] LABS: Basophils # (auto) 0.01 K/uL (0-0.2); Basophils % (auto) 0.1 %; Eosinophils # (auto) 0.04 K/uL (0-0.5); Eosinophils % (auto) 0.5 %; Hematocrit (blood only) 37.3 % (42-52); Hemoglobin 13.2 g/dL (14.0-18.0); Immature Granulocytes # (auto) 0.03 K/uL (0.00-0.02); Immature Granulocytes % (auto) 0.4 %; Lymphocytes # (auto) 1.58 K/uL (1.2-3.4); Lymphocytes % (auto) 18.8 %; Mean Corpuscular Hgb Conc 35.4 g/dL (32-36); Mean Corpuscular Volume 98.9 fL (80-100); Mean Platelet Volume 10.6 fL (7.4-10.4); Monocytes # (auto) 0.82 K/uL (0.11-0.59); Monocytes % (auto) 9.8 %; Neutrophils # (auto) 5.92 K/uL (1.4-6.5); Neutrophils % (auto) 70.4 %; Platelet Count 165 K/uL (130-400); RDW Coefficient of Variation 13.6 % (11.5-14.5); RDW Standard Deviation 49.4 fL (36.4-46.3); Red Blood Count 3.77 M/uL (4.7-6.1)
[2019-09-23 06:22] LABS: BUN Creatinine Ratio 15.8 (10-20); Calcium 8.9 mg/dl (8.5-10.1); Potassium 4.2 mmol/L (3.5-5.1); RBC Morphology Unremarkable
[2019-09-23 06:26] LABS: Albumin Globulin Ratio 0.8 (0.9-2); Bilirubin,Total 0.9 mg/dl (0.2-1); Globulin 3.7 gm/dl (2.5-4.0); Total Protein 6.7 gm/dl (6.4-8.2)
[2019-09-23] MEDS ORDERED: INSULIN GLARGINE SOLOSTAR 100 UNITS/ML 3 ML PEN SC SCH (09:00)
[2019-09-23] MEDS: INSULIN ASPART 100 UNITS/ML 3 ML PEN SC SCH ×4 (09:26→20:53)
[2019-09-23] MEDS: DIVALPROEX DELAY RELEASE 500 MG TAB PO SCH ×2 (09:27→20:43)
[2019-09-23] MEDS: DOCUSATE SODIUM 100 MG CAP PO SCH ×2 (09:27→20:42)
[2019-09-23] MEDS: bisacodyL 5 MG TABEC PO SCH (09:27)
[2019-09-23] MEDS: LACTOBACILLUS ACIDOPHILUS (FLORANEX) TAB PO SCH (09:28)
[2019-09-23] MEDS: CEROVITE ADV FORMULA TAB PO SCH (09:28)
[2019-09-23] MEDS: MAGNESIUM OXIDE 400 MG TAB PO SCH ×2 (09:28→20:44)
[2019-09-23] MEDS: HEPARIN SOD 5,000 UNIT/0.5 ML VIAL SQ SCH ×2 (09:28→20:52)
[2019-09-23] MEDS: CALCITONIN SALMON NA 200 IU/AC 3.7 ML BTL SCH (09:28)
[2019-09-23] MEDS: OMEGA-3 (PURIFIED FISH OIL) 1 GM CAP PO SCH (09:29)
[2019-09-23] MEDS: NYSTATIN POWDER 15GM BTL EXT SCH ×2 (09:29→20:48)
[2019-09-23] MEDS: DOCUSATE SODIUM/SENNA 50/8.6MG TAB PO SCH (09:29)
[2019-09-23] MEDS: DOXYCYCLINE HYCLATE 50 MG CAP PO SCH (09:29)
[2019-09-23] MEDS: ENALAPRIL MALEATE 10 MG TAB PO SCH (09:29)
[2019-09-23] MEDS: TOCOPHERYL, DL-ALPHA 100 UNITS CAP PO SCH (09:30)
--- NOTE | 2019-09-23 10:05 | Pharmacy Report ---
Pharmacy Glycemic Short Note 2 - Date of Service September 23, 2019 - Glycemic Short BSG Results (Last 24 hours): 09/22/19 09/22/19 09/22/19 12:01 17:04 20:38 Glucose POC Glucose 213 H 192 H 212 H 09/23/19 09/23/19 05:22 08:13 Glucose 158 H POC Glucose 189 H OUTPATIENT ANTIDIABETIC REGIMEN: * Metformin/glipizide 500 mg/2.5 mg PO BIDM * Metformin XR 500 mg PO daily * Sitagliptin 100 mg PO daily * A1c: 7.7% (09/21/19) ASSESSMENT: * JK's BSGs ranging 129-213 mg/dL yesterday * Received 30 units of insulin (all of which was prandial/correctional) * Will add basal insulin today given elevated fasting BSG this morning of 189 mg/dL PLAN FOR INPATIENT GLYCEMIC CONTROL: * Hold outpatient oral diabetes medications * Basal insulin * Lantus 15 units SC qAM * Lantus scale SC BID starting this evening (see EHR for details) * Bolus insulin * NovoLog per scale ACHS or Q6hrs while NPO * Goal Range: Low 110 mg/dL - High 140 mg/dL * Correction Factor: 20 mg/dL/unit * Nutritional / Prandial insulin per carb ratio of 1 unit per 7 grams CHO consumed PLAN FOR DISCHARGE: * Reasonable A1c goal for this patient is less than 8% * Renal function is adequate for continuation of home regimen
--- NOTE | 2019-09-23 10:38 | Hospitalist Progress Note ---
Date of Service September 23, 2019 Assessment & Plan (1) Fracture of T9 vertebra: osteoporosis with current pathological fracture, T9 and L1 vertebrae Consult orthopedics Dr. Kyle, Pain management with calcitriol salmon, lidoderm, percoset Monitor electrolytes and replenish Awaiting TLSO brace from orthotic (2) L1 vertebral fracture: As the above (3) Hyperlipidemia: Continue home medicine simvastatin 40 mg p.o. every afternoon. (4) Gastroesophageal reflux disease: Stable, continue home medicine ranitidine 150 mg p.o. twice daily PRN. (5) Benign prostatic hyperplasia with urinary obstruction: Stable, continue tamsulosin 0.4 mg p.o. nightly. Continue finasteride 5 mg p.o. every afternoon. (6) Diabetes: Diabetes mellitus type 2. Hold hypoglycemic agents while patient is in the hospital prevent hypoglycemic episodes and kidney injury if patient needs to have study with contrast. Glycemic control per pharmacy. Sliding scale insulin and Accu-Cheks before meals and at bedtime. (7) CVA (cerebral vascular accident): Stable at this time, continue simvastatin 40 mg p.o. every afternoon. Continue controlling blood pressure with Enbrel 10 mg p.o. every morning. Continue divalproex 500 mg p.o. twice daily to prevent seizures. Divalproex level 62 (8) DVT prophylaxis: DVT prophylaxis Heparin 5000 units every 12 hours Physical and Occupational Therapy once when patient is evaluated by Dr. Kyle and once when he has brace placed. Admission and Anticipated Discharge Date Admission Date: September 20, 2019 Anticipated dc 09/24 Subjective Mr. Vaughan feels nauseas today with some abdominal distention. No bm for at least 2 days. Back continues to be painful. No loss of sensation in lower extremities. He does report occasional numbness in his finger tips but is unsure if that is new or not ROS Constitutional: no chills, aches, sweats or fever Respiratory: no sob,cough, sputum, or wheezing Cardiac: no chest pain, palpitations, edema, orthopnea or lightheadedness GI: see HPI : no dysuria or hesitancy Extremities: no joint pain or weakness Skin: no rash All other systems reviewed and negative Physical Exam Physical Exam: General: no distress Eyes: normal inspection, PERLL Respiratory: chest non tender, clear to auscultation, normal breath sounds, no respiratory distress, no accessory muscle use Cardiac: regular rate and rhythm, no rub or gallop, no murmur, no edema, no jvd GI/: tympanic bowel sounds, no abd pain or tenderness, soft, distended abdomen Extremities: normal range of motion, normal strength, non tender Neuro/Psych: alert and oriented x 3, normal mood and affect Skin: normal color, dry Results & Data ([facility]) Vital Signs (Past 12 Hours) Vital Signs Temp Pulse Resp BP Pulse Ox 09/23/19 07:44 36.8 C 85 16 111/68 92 09/22/19 23:25 36.8 C 84 16 157/80 H 94 PG Care Time/CCT Total # of Minutes Spent Total Time Spent with Patient: Total time spent is greater than 50% in coordination of care (as documented) at patient's floor/unit and/or counseling patient: Coding Level of Care Code 02609 Subseq Hosp Care Lvl 2 Diagnoses Fracture of T9 vertebra S22.072A Encounter type: initial encounter Fracture morphology: burst- unstable Fracture type: closed L1 vertebral fracture S32.018A Encounter type: initial encounter Fracture morphology: other fracture Fracture type: closed Hyperlipidemia E78.5 Gastroesophageal reflux disease K21.9 Benign prostatic hyperplasia with urinary obstruction N40.1; N13.8 Diabetes E11.9 CVA (cerebral vascular accident) I63.9 DVT prophylaxis Z29.9 (1) L1 vertebral fracture Encounter type: initial encounter Fracture morphology: other fracture Fracture type: closed Qualified Code(s): S32.018A - Other fracture of first lumbar vertebra, initial encounter for closed fracture (2) Fracture of T9 vertebra Encounter type: initial encounter Fracture morphology: burst- unstable Fracture type: closed Qualified Code(s): S22.072A - Unstable burst fracture of T9-T10 vertebra, initial encounter for closed fracture
--- NOTE | 2019-09-23 10:57 | XRay Report ---
XR KUB/Abdomen 1 view CLINICAL HISTORY: abdominal distention, nausea COMPARISON STUDY: July 2019 FINDINGS: There is a large amount stool within the right colon. There is gaseous dilatation of both l arge and small bowel loops. There is moderate stool at the level of the splenic flexure. There is no conventional radiographic evidence of bowel obstruction. There are post procedural changes the level of prostate. The cecum measures 16 cm uncorrected for magnification IMPRESSION: 1. Moderate fecal retention. Distended cecum measuring 16 cm uncorrected for magnification. ACT 112: Negative or not required by law. Electronically signed by: Bigg Sears M.D. 09/23/2019 10:55 AM
--- NOTE | 2019-09-23 11:00 | XRay Report ---
XR thoracic spine 3V routine HISTORY: Trauma T9 fracture COMPARISON: CT 09/20/2019 FINDINGS: The appearance of the T8-T9 complex of findings described on the patient's prior CT study i s not easily appreciated on routine imaging. Several mild compression deformities are present. The ap pearance of the T8-T9 disc space appears similar. The transverse elements fractures seen in the lumbar region are not appreciated on this series of mario ges. There is generalized degenerative change and osteopenia. No subluxation. IMPRESSION: 1. T8-T9 fractures as well as a deformity of several lower thoracic and upper lumbar vertebral bodies appears similar based on routine imaging criteria. 2. Nevertheless, accuracy is extremely limited due to the presence of degenerative change and osteope [place]. 3. Given the lucencies involving the T8-T9 vertebral bodies on CT exam, it would be prudent to obtain follow-up CT images of the thoracic spine rather than routine imaging ACT 112: Negative or not required by law. The above report was generated using voice recognition software. It may contain grammatical, syntax or spelling errors. Electronically signed by: Hank Velez M.D. 09/23/2019 10:59 AM
[2019-09-23] MEDS ORDERED: SOD PHOSPHATE/SOD BIPHOSPHATE ENEMA 132 ML BTL PR ONE (11:07)
[2019-09-23] MEDS: BACLOFEN 10 MG TAB PO PRN ×2 (13:53→21:09)
[2019-09-23] MEDS: TAMSULOSIN HCL 0.4 MG CAP PO SCH (20:43)
[2019-09-23] MEDS: FINASTERIDE 5 MG TAB PO SCH (20:44)
[2019-09-23] MEDS: SENNA 8.6 MG TAB PO SCH (20:45)
[2019-09-23] MEDS: SIMVASTATIN 40 MG TAB PO SCH (20:46)
[2019-09-23] MEDS: ASCORBIC ACID 500 MG TAB PO SCH (20:46)
[2019-09-23] MEDS: CHOLECALCIFEROL 1,000 UNITS 25 MCG TAB PO SCH (20:47)
[2019-09-23] MEDS: INSULIN GLARGINE SOLOSTAR 100 UNITS/ML 3 ML PEN SC SCH (20:52)
[2019-09-23] MEDS: MoRPHine SULFATE 2 MG/ML CARP IV PRN (23:58)
[2019-09-24 06:21] LABS: Basophils # (auto) 0.01 K/uL (0-0.2); Basophils % (auto) 0.1 %; Eosinophils % (auto) 1.2 %; Hematocrit (blood only) 38.7 % (42-52); Hemoglobin 13.4 g/dL (14.0-18.0); Immature Granulocytes # (auto) 0.03 K/uL (0.00-0.02); Immature Granulocytes % (auto) 0.3 %; Lymphocytes % (auto) 21.9 %; Mean Corpuscular Hemoglobin 34.8 pg (25-34); Mean Corpuscular Hgb Conc 34.6 g/dL (32-36); Mean Corpuscular Volume 100.5 fL (80-100); Mean Platelet Volume 10.5 fL (7.4-10.4); Monocytes # (auto) 0.79 K/uL (0.11-0.59); Monocytes % (auto) 9.1 %; Neutrophils # (auto) 5.86 K/uL (1.4-6.5); Neutrophils % (auto) 67.4 %; Platelet Count 163 K/uL (130-400); RDW Coefficient of Variation 13.8 % (11.5-14.5); RDW Standard Deviation 50.6 fL (36.4-46.3); Red Blood Count 3.85 M/uL (4.7-6.1); White Blood Count 8.69 K/uL (4.8-10.8)
[2019-09-24 06:55] LABS: Albumin Level 2.9 gm/dl (3.4-5.0); BUN Creatinine Ratio 22.2 (10-20); Creatinine Clr Calc Pharmacy 53.6 ml/min; Est GFR (African American) 66.4; Est GFR (Non-African American) 57.3; Potassium 4.4 mmol/L (3.5-5.1)
[2019-09-24 06:58] LABS: Albumin Globulin Ratio 0.7 (0.9-2); Globulin 3.9 gm/dl (2.5-4.0); Total Protein 6.8 gm/dl (6.4-8.2)
[2019-09-24] MEDS: ENALAPRIL MALEATE 10 MG TAB PO SCH (09:15)
[2019-09-24] MEDS: CEROVITE ADV FORMULA TAB PO SCH (09:15)
[2019-09-24] MEDS: TOCOPHERYL, DL-ALPHA 100 UNITS CAP PO SCH (09:15)
[2019-09-24] MEDS: OMEGA-3 (PURIFIED FISH OIL) 1 GM CAP PO SCH (09:15)
[2019-09-24] MEDS: DOCUSATE SODIUM 100 MG CAP PO SCH ×2 (09:16→21:08)
[2019-09-24] MEDS: DIVALPROEX DELAY RELEASE 500 MG TAB PO SCH ×2 (09:16→21:07)
[2019-09-24] MEDS: LACTOBACILLUS ACIDOPHILUS (FLORANEX) TAB PO SCH (09:16)
[2019-09-24] MEDS: MAGNESIUM OXIDE 400 MG TAB PO SCH ×2 (09:16→21:08)
[2019-09-24] MEDS: DOXYCYCLINE HYCLATE 50 MG CAP PO SCH (09:16)
[2019-09-24] MEDS: CLOPIDOGREL BISULFATE 75 MG TAB PO SCH (09:16)
[2019-09-24] MEDS: DOCUSATE SODIUM/SENNA 50/8.6MG TAB PO SCH (09:16)
[2019-09-24] MEDS: CALCITONIN SALMON NA 200 IU/AC 3.7 ML BTL SCH (09:21)
[2019-09-24] MEDS: LIDOCAINE 5% 1 PATCH TD SCH (09:22)
[2019-09-24] MEDS: NYSTATIN POWDER 15GM BTL EXT SCH ×2 (09:24→21:13)
[2019-09-24] MEDS: HEPARIN SOD 5,000 UNIT/0.5 ML VIAL SQ SCH ×2 (09:25→21:01)
[2019-09-24] MEDS: INSULIN ASPART 100 UNITS/ML 3 ML PEN SC SCH ×4 (09:25→20:59)
[2019-09-24] MEDS: INSULIN GLARGINE SOLOSTAR 100 UNITS/ML 3 ML PEN SC SCH ×2 (09:26→21:01)
[2019-09-24] MEDS: bisacodyL 5 MG TABEC PO SCH (09:43)
--- NOTE | 2019-09-24 10:49 | Orthopedic Progress Note ---
Date of Service September 24, 2019 Assessment & Plan (1) Fracture of T9 vertebra: At this time we are waiting placement of a TLSO brace. Once this is established. We may initiate physical therapy with at least bed to chair stand transfers and hopefully ambulation. I will then need to obtain standing thoracic x-rays. Present on Admission?: Yes Admission and Anticipated Discharge Date Admission Date: September 20, 2019 Subjective Patient appears very comfortable today. No complaints. Physical Exam Physical Exam: Patient is neurologically intact. Results & Data ([facility]) Vital Signs (Past 12 Hours) Vital Signs Temp Pulse Resp BP Pulse Ox 09/24/19 07:33 37.4 C 88 18 160/81 H 92 09/23/19 23:30 36.9 C 88 16 143/83 H 93 (1) Fracture of T9 vertebra Encounter type: initial encounter Fracture morphology: burst- unstable Fracture type: closed Qualified Code(s): S22.072A - Unstable burst fracture of T9-T10 vertebra, initial encounter for closed fracture
[2019-09-24] MEDS: OXYCODONE/ACETAMINOPHEN 5mg/325mg TAB PO PRN (12:04)
[2019-09-24] MEDS: BACLOFEN 10 MG TAB PO PRN (12:42)
[2019-09-24] MEDS: MoRPHine SULFATE 2 MG/ML CARP IV PRN (13:24)
[2019-09-24] MEDS ORDERED: LIDOCAINE 5% 1 PATCH TD SCH (14:30)
[2019-09-24] MEDS: ACETAMINOPHEN 500 MG TAB PO SCH ×2 (14:37→21:08)
--- NOTE | 2019-09-24 16:37 | Hospitalist Progress Note ---
Date of Service September 24, 2019 Assessment & Plan (1) Fracture of T9 vertebra: osteoporosis with current pathological fracture, T9 and L1 vertebrae Consulted orthopedics Dr. Kyle, Pain management with calcitriol salmon, lidoderm, oxycodone, scheduled Tylenol, prn Baclofen Monitor electrolytes and replenish Awaiting TLSO brace from orthotics (2) L1 vertebral fracture: As the above (3) Hyperlipidemia: Continue home medicine simvastatin 40 mg p.o. every afternoon. (4) Gastroesophageal reflux disease: Stable, continue home medicine ranitidine 150 mg p.o. twice daily PRN. (5) Benign prostatic hyperplasia with urinary obstruction: Stable, continue tamsulosin 0.4 mg p.o. nightly. Continue finasteride 5 mg p.o. every afternoon. (6) Diabetes: Diabetes mellitus type 2. Hold hypoglycemic agents while patient is in the hospital prevent hypoglycemic episodes and kidney injury if patient needs to have study with contrast. Glycemic control per pharmacy. Sliding scale insulin and Accu-Cheks before meals and at bedtime. (7) CVA (cerebral vascular accident): Stable at this time, continue simvastatin 40 mg p.o. every afternoon. Continue controlling blood pressure with Enbrel 10 mg p.o. every morning. Continue divalproex 500 mg p.o. twice daily to prevent seizures. Divalproex level 62 (8) DVT prophylaxis: DVT prophylaxis Heparin 5000 units every 12 hours Physical and Occupational Therapy once when he has brace placed. Admission and Anticipated Discharge Date Admission Date: September 20, 2019 Anticipated discharge 09/25 Subjective Mr. Vaughan continues to have pain and spasms in his back. No numbness in his lower extremities. Denies any other complaints ROS Constitutional: no chills, aches, sweats or fever Respiratory: no sob,cough, sputum, or wheezing Cardiac: no chest pain, palpitations, edema, orthopnea or lightheadedness GI: no abdominal pain, nausea, vomiting, diarrhea or constipation : no dysuria or hesitancy Extremities: no joint pain or weakness Skin: no rash All other systems reviewed and negative Physical Exam Physical Exam: General: no distress Eyes: normal inspection, PERLL Respiratory: chest non tender, clear to auscultation, normal breath sounds, no respiratory distress, no accessory muscle use Cardiac: regular rate and rhythm, no rub or gallop, no murmur, no edema, no jvd GI/: active bowel sounds, no abd pain or tenderness, soft, non distended Extremities: normal range of motion, normal strength, non tender Neuro/Psych: alert and oriented x 3, normal mood and affect Skin: normal color, dry Results & Data ([facility]) Vital Signs (Past 12 Hours) Vital Signs Temp Pulse Resp BP BP Pulse Ox 09/24/19 15:27 36.7 C 91 H 18 146/78 H 95 09/24/19 11:09 36.6 C 94 H 18 131/72 94 09/24/19 07:33 37.4 C 88 18 160/81 H 92 PG Care Time/CCT Total # of Minutes Spent Total Time Spent with Patient: Total time spent is greater than 50% in coordination of care (as documented) at patient's floor/unit and/or counseling patient: Coding Level of Care Code 55040 Subseq Hosp Care Lvl 2 Diagnoses Fracture of T9 vertebra S22.072A Encounter type: initial encounter Fracture morphology: burst- unstable Fracture type: closed L1 vertebral fracture S32.018A Encounter type: initial encounter Fracture morphology: other fracture Fracture type: closed Hyperlipidemia E78.5 Gastroesophageal reflux disease K21.9 Benign prostatic hyperplasia with urinary obstruction N40.1; N13.8 Diabetes E11.9 CVA (cerebral vascular accident) I63.9 DVT prophylaxis Z29.9 (1) Fracture of T9 vertebra Encounter type: initial encounter Fracture morphology: burst- unstable Fracture type: closed Qualified Code(s): S22.072A - Unstable burst fracture of T9-T10 vertebra, initial encounter for closed fracture (2) L1 vertebral fracture Encounter type: initial encounter Fracture morphology: other fracture Fracture type: closed Qualified Code(s): S32.018A - Other fracture of first lumbar vertebra, initial encounter for closed fracture
[2019-09-24] MEDS: OXYCODONE HCL IR 5 MG TAB (IMMEDIATE RELEASE) PO PRN ×2 (17:32→23:42)
[2019-09-24] MEDS: POLYETHYLENE (MIRALAX) 17 GM PACK PO PRN (17:38)
[2019-09-24] MEDS ORDERED: SOD PHOSPHATE/SOD BIPHOSPHATE ENEMA 132 ML BTL PR PRN (20:04)
[2019-09-24] MEDS: SENNA 8.6 MG TAB PO SCH (21:07)
[2019-09-24] MEDS: SIMVASTATIN 40 MG TAB PO SCH (21:07)
[2019-09-24] MEDS: TAMSULOSIN HCL 0.4 MG CAP PO SCH (21:07)
[2019-09-24] MEDS: FINASTERIDE 5 MG TAB PO SCH (21:07)
[2019-09-24] MEDS: ASCORBIC ACID 500 MG TAB PO SCH (21:08)
[2019-09-24] MEDS: CHOLECALCIFEROL 1,000 UNITS 25 MCG TAB PO SCH (21:08)
[2019-09-24] MEDS: MAGNESIUM HYDROXIDE SUSP 30 ML UDC PO PRN (23:35)
[2019-09-25] MEDS: ACETAMINOPHEN 500 MG TAB PO SCH ×3 (05:07→21:14)
[2019-09-25 07:49] LABS: Basophils # (auto) 0.01 K/uL (0-0.2); Basophils % (auto) 0.1 %; Eosinophils # (auto) 0.17 K/uL (0-0.5); Eosinophils % (auto) 2.3 %; Hemoglobin 12.2 g/dL (14.0-18.0); Immature Granulocytes # (auto) 0.03 K/uL (0.00-0.02); Immature Granulocytes % (auto) 0.4 %; Lymphocytes # (auto) 1.49 K/uL (1.2-3.4); Lymphocytes % (auto) 19.9 %; Mean Corpuscular Hgb Conc 33.9 g/dL (32-36); Mean Corpuscular Volume 100.3 fL (80-100); Monocytes # (auto) 0.73 K/uL (0.11-0.59); Monocytes % (auto) 9.7 %; Neutrophils # (auto) 5.06 K/uL (1.4-6.5); Neutrophils % (auto) 67.6 %; Platelet Count 177 K/uL (130-400); RDW Coefficient of Variation 13.6 % (11.5-14.5); RDW Standard Deviation 50.1 fL (36.4-46.3); Red Blood Count 3.59 M/uL (4.7-6.1); White Blood Count 7.49 K/uL (4.8-10.8)
[2019-09-25] MEDS: DOXYCYCLINE HYCLATE 50 MG CAP PO SCH (08:01)
[2019-09-25] MEDS: DOCUSATE SODIUM/SENNA 50/8.6MG TAB PO SCH (08:01)
[2019-09-25] MEDS: DIVALPROEX DELAY RELEASE 500 MG TAB PO SCH ×2 (08:01→21:13)
[2019-09-25] MEDS: ENALAPRIL MALEATE 10 MG TAB PO SCH (08:01)
[2019-09-25] MEDS: MAGNESIUM OXIDE 400 MG TAB PO SCH ×2 (08:01→21:13)
[2019-09-25] MEDS: DOCUSATE SODIUM 100 MG CAP PO SCH ×2 (08:01→21:13)
[2019-09-25] MEDS: OMEGA-3 (PURIFIED FISH OIL) 1 GM CAP PO SCH (08:01)
[2019-09-25] MEDS: CEROVITE ADV FORMULA TAB PO SCH (08:01)
[2019-09-25] MEDS: LACTOBACILLUS ACIDOPHILUS (FLORANEX) TAB PO SCH (08:02)
[2019-09-25] MEDS: TOCOPHERYL, DL-ALPHA 100 UNITS CAP PO SCH (08:02)
[2019-09-25] MEDS: LIDOCAINE 5% 1 PATCH TD SCH (08:02)
[2019-09-25] MEDS: CALCITONIN SALMON NA 200 IU/AC 3.7 ML BTL SCH (08:03)
[2019-09-25] MEDS: NYSTATIN POWDER 15GM BTL EXT SCH ×2 (08:08→21:14)
[2019-09-25 08:18] LABS: Albumin Level 2.7 gm/dl (3.4-5.0); BUN Creatinine Ratio 24.4 (10-20); Calcium 8.9 mg/dl (8.5-10.1); Creatinine Clr Calc Pharmacy 59.9 ml/min; Est GFR (African American) 75.9; Est GFR (Non-African American) 65.5; Potassium 4.7 mmol/L (3.5-5.1)
[2019-09-25 08:22] LABS: Albumin Globulin Ratio 0.7 (0.9-2); Bilirubin,Total 0.7 mg/dl (0.2-1); Globulin 3.7 gm/dl (2.5-4.0); Total Protein 6.4 gm/dl (6.4-8.2)
[2019-09-25] MEDS: bisacodyL 5 MG TABEC PO SCH (09:08)
[2019-09-25] MEDS: INSULIN ASPART 100 UNITS/ML 3 ML PEN SC SCH ×4 (09:09→21:20)
[2019-09-25] MEDS: HEPARIN SOD 5,000 UNIT/0.5 ML VIAL SQ SCH ×2 (09:10→21:14)
[2019-09-25] MEDS: INSULIN GLARGINE SOLOSTAR 100 UNITS/ML 3 ML PEN SC SCH ×2 (09:11→21:15)
[2019-09-25] MEDS: BACLOFEN 10 MG TAB PO PRN ×2 (09:19→20:00)
--- NOTE | 2019-09-25 11:17 | Orthopedic Progress Note ---
Date of Service September 25, 2019 Assessment & Plan (1) Fracture of T9 vertebra: At this time we will consult physical therapy for bed to chair transfers with his TLSO brace in place. Hopefully he will be able to tolerate this we can begin ambulation. We will follow-up with a CAT scan of the thoracic spine the next few days. Present on Admission?: Yes Admission and Anticipated Discharge Date Admission Date: September 20, 2019 Subjective Patient is more comfortable at this time. Pain improved from his admission. Results & Data ([facility]) Vital Signs (Past 12 Hours) Vital Signs Temp Pulse Resp BP Pulse Ox 09/25/19 07:25 36.9 C 81 16 129/73 91 (1) Fracture of T9 vertebra Encounter type: initial encounter Fracture morphology: burst- unstable Fracture type: closed Qualified Code(s): S22.072A - Unstable burst fracture of T9-T10 vertebra, initial encounter for closed fracture
--- NOTE | 2019-09-25 11:27 | Pharmacy Report ---
Pharmacy Glycemic Short Note 2 - Date of Service September 25, 2019 - Glycemic Short BSG Results (Last 24 hours): 09/24/19 09/24/19 09/24/19 12:21 16:53 20:26 Glucose POC Glucose 237 H 172 H 305 H* 09/24/19 09/25/19 09/25/19 20:27 07:40 08:14 Glucose 129 H POC Glucose 273 H 139 H OUTPATIENT ANTIDIABETIC REGIMEN: * Metformin/glipizide 500 mg/2.5 mg PO BIDM * Metformin XR 500 mg PO daily * Sitagliptin 100 mg PO daily * A1c: 7.7% (09/21/19) ASSESSMENT: * AM fasting BSG with slight trend down last three mornings while on Lantus 15 units BID (189 to 161 to 139 mg/dL) - will continue current dose but add parameter to decrease dose if BSG < 110 mg/dL * Post-prandial elevations persisting despite tightening of CHO ratio 09/23 afternoon. Will tighten further. PLAN FOR INPATIENT GLYCEMIC CONTROL: * Hold outpatient oral diabetes medications * Basal insulin * Lantus 15 units SC BID (reduce to 10 units if BSG < 110 mg/dL) * Bolus insulin * NovoLog per scale ACHS or Q6hrs while NPO * Goal Range: Low 110 mg/dL - High 140 mg/dL * Correction Factor: 18 mg/dL/unit * Nutritional / Prandial insulin per carb ratio of 1 unit per 6 grams CHO consumed PLAN FOR DISCHARGE: * Reasonable A1c goal for this patient is less than 8% * Current A1c is 7.7% * Renal function is currently adequate for continuation of home regimen
--- NOTE | 2019-09-25 14:11 | Hospitalist Progress Note ---
Date of Service September 25, 2019 Assessment & Plan (1) Fracture of T9 vertebra: osteoporosis with current pathological fracture, T9 and L1 vertebrae Consulted orthopedics Dr. Kyle, Pain management with calcitriol salmon, lidoderm, oxycodone, scheduled Tylenol, prn Baclofen Awaiting TLSO brace from orthotics and then will begin PT/OT Per ortho - will need CT of his spine in a couple of days (2) L1 vertebral fracture: As the above (3) Hyperlipidemia: Continue home medicine simvastatin 40 mg p.o. every afternoon. (4) Gastroesophageal reflux disease: Stable, continue home medicine ranitidine 150 mg p.o. twice daily PRN. (5) Benign prostatic hyperplasia with urinary obstruction: Stable, continue tamsulosin 0.4 mg p.o. nightly. Continue finasteride 5 mg p.o. every afternoon. (6) Diabetes: Diabetes mellitus type 2. Hold hypoglycemic agents while patient is in the hospital prevent hypoglycemic episodes and kidney injury if patient needs to have study with contrast. Glycemic control per pharmacy. Sliding scale insulin and Accu-Cheks before meals and at bedtime. Patient has been running a bit hyperglycemic (7) CVA (cerebral vascular accident): Stable at this time, continue simvastatin 40 mg p.o. every afternoon. Continue controlling blood pressure with Enbrel 10 mg p.o. every morning. Continue divalproex 500 mg p.o. twice daily to prevent seizures. Divalproex level 62 (8) DVT prophylaxis: DVT prophylaxis Heparin 5000 units every 12 hours Physical and Occupational Therapy once when he has brace placed. Admission and Anticipated Discharge Date Admission Date: September 20, 2019 Subjective Mr Vaughan has no new complaints today. He was still awaiting his brace this morning and has not start PT/OT ROS Constitutional: no chills, aches, sweats or fever Respiratory: no sob,cough, sputum, or wheezing Cardiac: no chest pain, palpitations, edema, orthopnea or lightheadedness GI: no abdominal pain, nausea, vomiting, diarrhea or constipation : no dysuria or hesitancy Extremities: no joint pain or weakness Skin: no rash All other systems reviewed and negative Physical Exam Physical Exam: General: no distress Eyes: normal inspection, PERLL Respiratory: chest non tender, clear to auscultation, normal breath sounds, no respiratory distress, no accessory muscle use Cardiac: regular rate and rhythm, no rub or gallop, no murmur, no edema, no jvd GI/: active bowel sounds, no abd pain or tenderness, soft, non distended Extremities: normal range of motion, normal strength, non tender Neuro/Psych: alert and oriented x 3, normal mood and affect Skin: normal color, dry Results & Data ([facility]) Vital Signs (Past 12 Hours) Vital Signs Temp Pulse Resp BP Pulse Ox 09/25/19 07:25 36.9 C 81 16 129/73 91 PG Care Time/CCT Total # of Minutes Spent Total Time Spent with Patient: Total time spent is greater than 50% in coordination of care (as documented) at patient's floor/unit and/or counseling patient: Coding Level of Care Code 91539 Subseq Hosp Care Lvl 2 Diagnoses Fracture of T9 vertebra S22.072A Encounter type: initial encounter Fracture morphology: burst- unstable Fracture type: closed L1 vertebral fracture S32.018A Encounter type: initial encounter Fracture morphology: other fracture Fracture type: closed Hyperlipidemia E78.5 Gastroesophageal reflux disease K21.9 Benign prostatic hyperplasia with urinary obstruction N40.1; N13.8 Diabetes E11.9 CVA (cerebral vascular accident) I63.9 DVT prophylaxis Z29.9 (1) Fracture of T9 vertebra Encounter type: initial encounter Fracture morphology: burst- unstable Fracture type: closed Qualified Code(s): S22.072A - Unstable burst fracture of T9-T10 vertebra, initial encounter for closed fracture (2) L1 vertebral fracture Encounter type: initial encounter Fracture morphology: other fracture Fracture type: closed Qualified Code(s): S32.018A - Other fracture of first lumbar vertebra, initial encounter for closed fracture
[2019-09-25] MEDS: TAMSULOSIN HCL 0.4 MG CAP PO SCH (21:13)
[2019-09-25] MEDS: ASCORBIC ACID 500 MG TAB PO SCH (21:13)
[2019-09-25] MEDS: FINASTERIDE 5 MG TAB PO SCH (21:13)
[2019-09-25] MEDS: SIMVASTATIN 40 MG TAB PO SCH (21:14)
[2019-09-25] MEDS: CHOLECALCIFEROL 1,000 UNITS 25 MCG TAB PO SCH (21:14)
[2019-09-25] MEDS: SENNA 8.6 MG TAB PO SCH (21:37)
[2019-09-26] MEDS: ACETAMINOPHEN 500 MG TAB PO SCH ×3 (05:52→21:06)
[2019-09-26] MEDS: bisacodyL 5 MG TABEC PO SCH (08:05)
[2019-09-26] MEDS: DOCUSATE SODIUM 100 MG CAP PO SCH ×2 (08:05→21:06)
[2019-09-26] MEDS: CEROVITE ADV FORMULA TAB PO SCH (08:12)
[2019-09-26] MEDS: CLOPIDOGREL BISULFATE 75 MG TAB PO SCH (08:12)
[2019-09-26] MEDS: LACTOBACILLUS ACIDOPHILUS (FLORANEX) TAB PO SCH (08:12)
[2019-09-26] MEDS: DIVALPROEX DELAY RELEASE 500 MG TAB PO SCH ×2 (08:13→21:07)
[2019-09-26] MEDS: MAGNESIUM OXIDE 400 MG TAB PO SCH ×2 (08:13→21:07)
[2019-09-26] MEDS: OMEGA-3 (PURIFIED FISH OIL) 1 GM CAP PO SCH (08:13)
[2019-09-26] MEDS: TOCOPHERYL, DL-ALPHA 100 UNITS CAP PO SCH (08:13)
[2019-09-26] MEDS: ENALAPRIL MALEATE 10 MG TAB PO SCH (08:13)
[2019-09-26] MEDS: DOXYCYCLINE HYCLATE 50 MG CAP PO SCH (08:13)
[2019-09-26] MEDS: NYSTATIN POWDER 15GM BTL EXT SCH ×2 (08:14→21:06)
[2019-09-26] MEDS: DOCUSATE SODIUM/SENNA 50/8.6MG TAB PO SCH (08:14)
[2019-09-26] MEDS: LIDOCAINE 5% 1 PATCH TD SCH (08:14)
[2019-09-26] MEDS: CALCITONIN SALMON NA 200 IU/AC 3.7 ML BTL SCH (08:14)
[2019-09-26] MEDS: BACLOFEN 10 MG TAB PO PRN (08:19)
[2019-09-26] MEDS: INSULIN ASPART 100 UNITS/ML 3 ML PEN SC SCH ×4 (09:29→21:12)
[2019-09-26] MEDS: INSULIN GLARGINE SOLOSTAR 100 UNITS/ML 3 ML PEN SC SCH ×2 (09:30→21:11)
[2019-09-26] MEDS: HEPARIN SOD 5,000 UNIT/0.5 ML VIAL SQ SCH ×2 (09:31→21:11)
[2019-09-26 09:33] LABS: Folate (Folic Acid) 18.63 ng/ml (>5.38)
[2019-09-26 09:39] LABS: BUN Creatinine Ratio 22.7 (10-20); Calcium 9.2 mg/dl (8.5-10.1); Creatinine Clr Calc Pharmacy 62.3 ml/min; Est GFR (African American) 79.6; Est GFR (Non-African American) 68.7; Potassium 4.5 mmol/L (3.5-5.1)
--- NOTE | 2019-09-26 11:16 | Pharmacy Report ---
Pharmacy Glycemic Short Note 2 - Date of Service September 26, 2019 - Glycemic Short BSG Results (Last 24 hours): 09/25/19 09/25/19 09/25/19 12:10 17:02 20:27 Glucose POC Glucose 200 H 146 H 180 H 09/26/19 09/26/19 08:22 08:50 Glucose 156 H POC Glucose 151 H OUTPATIENT ANTIDIABETIC REGIMEN: * Metformin/glipizide 500 mg/2.5 mg PO BIDM * Metformin XR 500 mg PO daily * Sitagliptin 100 mg PO daily * A1c: 7.7% (09/21/19) ASSESSMENT: * BSGs are reasonable given pt's age and clinical status. No acute fluctuation in insulin requirements are anticipated. Continue current orders. PLAN FOR INPATIENT GLYCEMIC CONTROL: * Hold outpatient oral diabetes medications * Basal insulin * Lantus 15 units SC BID (reduce to 10 units if BSG < 110 mg/dL) * Bolus insulin * NovoLog per scale ACHS or Q6hrs while NPO * Goal Range: Low 110 mg/dL - High 140 mg/dL * Correction Factor: 18 mg/dL/unit * Nutritional / Prandial insulin per carb ratio of 1 unit per 6 grams CHO consumed PLAN FOR DISCHARGE: * Reasonable A1c goal for this patient is less than 8% * Current A1c is 7.7% * Renal function is currently adequate for continuation of home regimen
--- NOTE | 2019-09-26 13:28 | Hospitalist Progress Note ---
Date of Service September 26, 2019 Assessment & Plan (1) Fracture of T9 vertebra: osteoporosis with current pathological fracture, T9 and L1 vertebrae Consulted orthopedics Dr. Kyle, Pain management with calcitriol salmon, lidoderm, oxycodone, scheduled Tylenol, prn Baclofen Received TLSO brace from orthotics, had PT/OT evals Vit D level low normal - continue supplementation Per ortho - will need CT of his spine in a couple of days (2) L1 vertebral fracture: As the above (3) Hyperlipidemia: Continue home medicine simvastatin 40 mg p.o. every afternoon. (4) Gastroesophageal reflux disease: Stable, continue home medicine ranitidine 150 mg p.o. twice daily PRN. (5) Benign prostatic hyperplasia with urinary obstruction: Stable, continue tamsulosin 0.4 mg p.o. nightly. Continue finasteride 5 mg p.o. every afternoon. (6) Diabetes: Diabetes mellitus type 2. Hold hypoglycemic agents while patient is in the hospital prevent hypoglycemic episodes and kidney injury if patient needs to have study with contrast. Glycemic control per pharmacy. Sliding scale insulin and Accu-Cheks before meals and at bedtime. Patient has been running a bit hyperglycemic (7) CVA (cerebral vascular accident): Stable at this time, continue simvastatin 40 mg p.o. every afternoon. Continue controlling blood pressure with Enbrel 10 mg p.o. every morning. Continue divalproex 500 mg p.o. twice daily to prevent seizures. Divalproex level 62 (8) DVT prophylaxis: DVT prophylaxis Heparin 5000 units every 12 hours PT/OT evals today - hopefully will be able to discharge tomorrow if ok with ortho spine (9) Anemia: Macrocytic, stable B12 and folate levels wnl Admission and Anticipated Discharge Date Admission Date: September 20, 2019 Subjective Mr. Vaughan continues to have some back pain. He chronically has no control over his bladder and this has not changed. No loss of control over his bowels, no numbness. ROS Constitutional: no chills, aches, sweats or fever Respiratory: no sob,cough, sputum, or wheezing Cardiac: no chest pain, palpitations, edema, orthopnea or lightheadedness GI: no abdominal pain, nausea, vomiting, diarrhea or constipation : no dysuria or hesitancy Extremities: no joint pain or weakness Skin: no rash All other systems reviewed and negative Physical Exam Physical Exam: General: no distress Eyes: normal inspection, PERLL Respiratory: chest non tender, clear to auscultation, normal breath sounds, no respiratory distress, no accessory muscle use Cardiac: regular rate and rhythm, no rub or gallop, no murmur, no edema, no jvd GI/: active bowel sounds, no abd pain or tenderness, soft, non distended Extremities: normal range of motion, normal strength, non tender Neuro/Psych: alert and oriented x 3, normal mood and affect Skin: normal color, dry Results & Data ([facility]) Vital Signs (Past 12 Hours) Vital Signs Temp Pulse Resp BP Pulse Ox 09/26/19 07:15 36.7 C 74 16 112/68 94 PG Care Time/CCT Total # of Minutes Spent Total Time Spent with Patient: Total time spent is greater than 50% in coordination of care (as documented) at patient's floor/unit and/or counseling patient: Coding Level of Care Code 96695 Subseq Hosp Care Lvl 2 Diagnoses Fracture of T9 vertebra S22.072A Encounter type: initial encounter Fracture morphology: burst- unstable Fracture type: closed L1 vertebral fracture S32.018A Encounter type: initial encounter Fracture morphology: other fracture Fracture type: closed Hyperlipidemia E78.5 Gastroesophageal reflux disease K21.9 Benign prostatic hyperplasia with urinary obstruction N40.1; N13.8 Diabetes E11.9 CVA (cerebral vascular accident) I63.9 DVT prophylaxis Z29.9 Anemia D64.9 (1) Fracture of T9 vertebra Encounter type: initial encounter Fracture morphology: burst- unstable Fracture type: closed Qualified Code(s): S22.072A - Unstable burst fracture of T9-T10 vertebra, initial encounter for closed fracture (2) L1 vertebral fracture Encounter type: initial encounter Fracture morphology: other fracture Fracture type: closed Qualified Code(s): S32.018A - Other fracture of first lumbar vertebra, initial encounter for closed fracture
--- NOTE | 2019-09-26 18:09 | CT Scan Report ---
CT SCAN OF THE THORACIC SPINE WITHOUT IV CONTRAST CLINICAL HISTORY: Follow-up thoracic spine fracture. COMPARISON STUDY: CT of the thoracic spine dated 09/20/2019. TECHNIQUE: CT scan of the thoracic spine is performed from the lower cervical spine to the upper lumb ar spine. Images are reviewed in the axial, sagittal, and coronal planes. IV contrast was not adminis tered for this examination. A dose lowering technique was utilized adhering to the principles of ALAR A. The examination is degraded by motion artifact. FINDINGS: The skeletal structures are osteopenic. There is a mild chronic superior endplate compressi on deformity of T12. Vertebral body height is otherwise maintained throughout the thoracic spine. The re is unchanged appearance of an acute horizontally oriented fracture through the superior endplate o f T9 which extends through the disc space as compared to 09/20/2019. There is widening between the fra gments anteriorly. Fracture does not clearly extend through the posterior elements. No additional acu te fracture is seen involving the thoracic spine. There are flowing anterior osteophytes seen throug hout suggesting DISH. The transverse and spinous processes of the thoracic spine appear intact. Multi level degenerative disc space narrowing is observed. There are healed right posterior rib fractures. No lytic or blastic lesion is seen. Paravertebral edema is again noted at T8-T9. The paraspinous soft tissues are normal as imaged noting fatty atrophy of the paraspinous musculature. There are trace pl eural effusions with dependent atelectasis. There is atherosclerotic calcification of the thoracic ao rta. Bilateral renal cysts are partially visualized and measure up to 3.4 cm. IMPRESSION: 1. There is unchanged appearance of a horizontally oriented fracture through the superior endplate of T9 which extends through the disc space at T8-T9. There is widening of the fragments anteriorly, wit h no clear involvement of the posterior elements. As noted previously this fracture is likely unstabl e. 2. No additional acute fracture is seen involving the thoracic spine. 3. 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 4. Trace pleural effusions are new from previous. 5. Additional findings as above. Electronically signed by: Cyrus Larkin M.D. 09/26/2019 6:07 PM
[2019-09-26] MEDS: SIMVASTATIN 40 MG TAB PO SCH (21:06)
[2019-09-26] MEDS: ASCORBIC ACID 500 MG TAB PO SCH (21:06)
[2019-09-26] MEDS: CHOLECALCIFEROL 1,000 UNITS 25 MCG TAB PO SCH (21:06)
[2019-09-26] MEDS: SENNA 8.6 MG TAB PO SCH (21:07)
[2019-09-26] MEDS: TAMSULOSIN HCL 0.4 MG CAP PO SCH (21:07)
[2019-09-26] MEDS: FINASTERIDE 5 MG TAB PO SCH (21:07)
[2019-09-27] MEDS: ACETAMINOPHEN 500 MG TAB PO SCH ×2 (05:18→13:27)
[2019-09-27] MEDS: ENALAPRIL MALEATE 10 MG TAB PO SCH (09:22)
[2019-09-27] MEDS: DOCUSATE SODIUM/SENNA 50/8.6MG TAB PO SCH (09:22)
[2019-09-27] MEDS: DOXYCYCLINE HYCLATE 50 MG CAP PO SCH (09:22)
[2019-09-27] MEDS: DOCUSATE SODIUM 100 MG CAP PO SCH (09:22)
[2019-09-27] MEDS: OMEGA-3 (PURIFIED FISH OIL) 1 GM CAP PO SCH (09:22)
[2019-09-27] MEDS: DIVALPROEX DELAY RELEASE 500 MG TAB PO SCH (09:22)
[2019-09-27] MEDS: MAGNESIUM OXIDE 400 MG TAB PO SCH (09:22)
[2019-09-27] MEDS: TOCOPHERYL, DL-ALPHA 100 UNITS CAP PO SCH (09:23)
[2019-09-27] MEDS: LACTOBACILLUS ACIDOPHILUS (FLORANEX) TAB PO SCH (09:23)
[2019-09-27] MEDS: CALCITONIN SALMON NA 200 IU/AC 3.7 ML BTL SCH (09:23)
[2019-09-27] MEDS: NYSTATIN POWDER 15GM BTL EXT SCH (09:23)
[2019-09-27] MEDS: CEROVITE ADV FORMULA TAB PO SCH (09:23)
[2019-09-27] MEDS: INSULIN ASPART 100 UNITS/ML 3 ML PEN SC SCH ×3 (09:26→18:08)
[2019-09-27] MEDS: INSULIN GLARGINE SOLOSTAR 100 UNITS/ML 3 ML PEN SC SCH (09:27)
--- NOTE | 2019-09-27 09:27 | Orthopedic Progress Note ---
Date of Service September 27, 2019 Assessment & Plan (1) Fracture of T9 vertebra: This time he is okay for discharge. Brace can be uncomfortable at times however it is necessary in light of the inherent instability the fracture. His recent CAT scan demonstrates reasonable alignment. His lungs this maintains alignment and he heals this would be all he would require and we can avoid surgery. Present on Admission?: Yes Admission and Anticipated Discharge Date Admission Date: September 20, 2019 Subjective Back pain improved. He is tolerating the brace. Physical Exam Physical Exam: Patient is neurologically intact sitting up in bed. Results & Data ([facility]) Vital Signs (Past 12 Hours) Vital Signs Temp Pulse Resp BP BP Pulse Ox 09/27/19 07:00 36.7 C 63 20 155/75 H 95 09/26/19 23:47 36.7 C 72 16 162/74 H 95 (1) Fracture of T9 vertebra Encounter type: initial encounter Fracture morphology: burst- unstable Fracture type: closed Qualified Code(s): S22.072A - Unstable burst fracture of T9-T10 vertebra, initial encounter for closed fracture
[2019-09-27] MEDS: HEPARIN SOD 5,000 UNIT/0.5 ML VIAL SQ SCH (09:28)
[2019-09-27] MEDS: LIDOCAINE 5% 1 PATCH TD SCH (09:28)
[2019-09-27] MEDS: bisacodyL 5 MG TABEC PO SCH (09:37)
--- NOTE | 2019-09-27 10:25 | Discharge Summary ---
Date of Service September 27, 2019 Admission HPI Per Admitting Provider The patient is an 88 years old male with past medical history of sensorineural hearing loss, lumbar canal stenosis, left bundle branch block, stool incontinence wearing diapers, hyperlipidemia, BPH, diabetes mellitus type 2, prior CVA who was brought by EMS with a complaint of intermittent and sharp lower back pain that started 6 hours ago. The patient states he fell at home and crawled to call 911. Patient stated that EMS was able to pick him up off of the floor and then they left. Patient denies hitting his head, losing consciousness or having syncope during this event. Patient denies fever, chills, chest pain, shortness of breath, abdominal pain, frequency, urgency. Labs are reviewed: WBC is 11.33, hemoglobin 13.3, hematocrit 39, platelets 176, sodium 140, potassium 4.6, chloride 107, carbon dioxide 26, anion gap 7, BUN 20, creatinine 1.1, GFR 60.5, hemoglobin A1c 7.5, from July 17, 2019, calcium 9.4, total bilirubin 0.6, AST 26, ALT 15, alkaline phosphatase 59, total protein 7.2, albumin 3.7, globulin 3.5. Urine analysis and culture pending, valproic acid level pending. X-rays of the thoracic spine shows there is a horizontally oriented fracture through the superior endplate of T9 which extends through the disc space T8-T9. There is a widening of the fragments anteriorly with no clear involvement of the posterior elements. This fracture is likely unstable. No additional acute fracture is seen involving the thoracic spine. There is an acute appearing right transverse process fracture of L1. 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 Acute right L1 transverse process fracture. No vertebral body fracture identified. Moderately advanced multilevel spondylotic changes with moderate spinal stenosis at the L2-L3 level. Moderate to severe spinal stenosis at L3-L4 level and moderate spinal stenosis at the L4-L5 level. In addition there is a moderate to severe bilateral foraminal narrowing at L1-L2 level. Decision was made to admit patient to [facility] for further evaluation and treatment of the vertebral fractures of which one is unstable. Principal Diagnosis Thoracic fracture Discharge Exam Constitutional WD/WN, vitals as above Respiratory normal respiratory effort, lungs clear to auscultation Cardiovascular RRR, no murmur, no edema Gastrointestinal (Abdomen) Inspection/Auscultation: abdomen normal to inspection and normal bowel sounds; abdomen not distended Percussion/Palpation: abdomen soft; abdomen nontender Musculoskeletal no cyanosis or clubbing, extremities motor strength 5/5 Skin no rashes, warm and dry Neurologic moves all extremities and awake Psychiatric A+Ox3, euthymic affect Discharge Data Allergies Allergy/AdvReac Type Severity Reaction Status Date / Time No Known Drug Allergies Allergy . Verified 09/20/19 14:59 Consultations 09/20/19 19:01 ED Decision to Admit Stat 09/20/19 20:28 Consult Orthopedic Surgery Routine Ordered Studies 09/20/19 14:50 CT thoracic spine wo con Stat 09/20/19 14:59 CT lumbar spine wo con Stat 09/26/19 16:12 CT thoracic spine wo con Routine Hospital Course (1) Fracture of T9 vertebra: osteoporosis with current pathological fracture, T9 and L1 vertebrae Consulted orthopedics Dr. Kyle, Pain management with calcitriol salmon, lidoderm, oxycodone, scheduled Tylenol, prn Baclofen Received TLSO brace from orthotics, had PT/OT evals - will need to wear brace whenever out of bed Vit D level low normal - continue supplementation Per ortho - repeat CT done 09/27 - per Dr. Kyle, patient is ok to discharge and is non surgical (2) L1 vertebral fracture: As the above (3) Hyperlipidemia: Continue home medicine simvastatin 40 mg p.o. every afternoon. (4) Gastroesophageal reflux disease: Stable, continue home medicine ranitidine 150 mg p.o. twice daily PRN. (5) Benign prostatic hyperplasia with urinary obstruction: Stable, continue tamsulosin 0.4 mg p.o. nightly. Continue finasteride 5 mg p.o. every afternoon. (6) Diabetes: Diabetes mellitus type 2. Hold hypoglycemic agents while patient is in the hospital prevent hypoglycemic episodes and kidney injury if patient needs to have study with contrast. Glycemic control per pharmacy. Sliding scale insulin and Accu-Cheks before meals and at bedtime. Patient has been running a bit hyperglycemic - return to home regimen on discharge - adequate control with this regimen with A1c 7.7 (7) CVA (cerebral vascular accident): Stable at this time, continue simvastatin 40 mg p.o. every afternoon. Continue controlling blood pressure with Enbrel 10 mg p.o. every morning. Continue divalproex 500 mg p.o. twice daily to prevent seizures. Divalproex level 62 (8) DVT prophylaxis: DVT prophylaxis Heparin 5000 units every 12 hours while inpatient (9) Anemia: Macrocytic, stable B12 and folate levels wnl (10) Pleural effusion: Trace, on CT Saturating 95% on RA Hopefully will improve with increased mobilization Encourage adequate protein intake. Total Time Total Time Spent Total Time Spent (In Minutes): greater than 30 minutes Discharge Plan Discharge Items Patient Disposition: Transfer Inpatient Rehab Fac Reason For Visit: FALL Discharge Diagnosis: Thoracic compression fracture Activity: Per Instructions section Non-emergency contact: Primary Care Provider Call non-emergency contact if: you have any medication questions Follow-up/Referrals: Jass Osorio MD [Primary Care Provider] - Diet: Carb Consistent or DM2 Addtl Attending Provider Instructions: (1) Fracture of T9 vertebra, unstable, L1 vertebral fracture: osteoporosis with current pathological fracture, T9 and L1 vertebrae Consulted orthopedics Dr. Kyle - as fracure is unstable, patient will need to wear TLSO brace whenever out of bed, will remain non surgical Pain management with calcitriol salmon, lidoderm, oxycodone, scheduled Tylenol, prn Baclofen Received TLSO brace from orthotics, had PT/OT evals Vit D level low normal - continue supplementation Please follow up with Dr. Kyle's office (2) Hyperlipidemia: Continue home medicine simvastatin 40 mg p.o. every afternoon. (3) Gastroesophageal reflux disease: Stable, continue home medicine ranitidine 150 mg p.o. twice daily PRN. (4) Benign prostatic hyperplasia with urinary obstruction: Stable, continue tamsulosin 0.4 mg p.o. nightly. Continue finasteride 5 mg p.o. every afternoon. (5) Diabetes: Diabetes mellitus type 2. Continue home regimen at discharge (6) CVA (cerebral vascular accident): Stable at this time, continue simvastatin 40 mg p.o. every afternoon. Continue controlling blood pressure with Enbrel 10 mg p.o. every morning. Continue divalproex 500 mg p.o. twice daily to prevent seizures. Divalproex level 62 (7) Anemia: Macrocytic, stable B12 and folate levels within normal limits Pending Studies at Discharge: No Stand-Alone Forms: My [facility] [employer], Opioid Pain Management Skilled Items Patient informed of condition?: Yes DNR: No Discharge Level of Care: Acute rehab Communicable Disease: No Discharge Prognosis: Stable Lines: None Urinary Catheter: No Medications and DC Order Prescriptions: New polyethylene glycol 3350 [Miralax] 17 gram Powder In Packet 17 g PO DAILY PRN (Reason: constipation) Qty: 30 RF: 0 sennosides-docusate sodium [Senokot-S] 8.6-50 mg Tablet 1 tab PO QAM Qty: 30 RF: 0 acetaminophen 500 mg Tablet 1,000 mg PO Q8 Qty: 90 RF: 0 calcitonin (salmon) 200 unit/actuation [place],Non-Aerosol 1 spray NA DAILY Qty: 1 RF: 0 baclofen 10 mg Tablet 5 mg PO QID PRN (Reason: spasms) Qty: 30 RF: 0 lidocaine 5 % Adhesive Patch,Medicated 1 patch transdermal QAM Qty: 30 RF: 0 oxycodone 5 mg Tablet 5 - 10 mg PO Q4H PRN (Reason: pain) Qty: 20 RF: 0 Continued glipizide-metformin 2.5-500 mg tablet 1 tab PO BID Qty: 180 RF: 3 trospium 20 mg tablet 20 mg PO BID 90 Days Qty: 180 RF: 3 Januvia 100 mg tablet 100 mg PO QAM Qty: 90 RF: 3 (DME) ReliOn Prime Test Strips Strip See Rx Instructions .ROUTE .MEDSUPPLY Qty: 100 RF: 3 tamsulosin 0.4 mg capsule 0.4 mg PO HS RF: 0 finasteride 5 mg tablet 5 mg PO QPM RF: 0 metformin 500 mg tablet extended release 24 hr 500 mg PO QPM RF: 0 ascorbic acid (vitamin C) [Vitamin C] 500 mg Tablet 500 mg PO QPM RF: 0 sennosides 8.6 mg Tablet 8.6 mg PO QPM RF: 0 docusate sodium 50 mg Capsule 50 mg PO BID RF: 0 bisacodyl 5 mg Tablet 5 mg PO QAM RF: 0 Antacid Plus Anti-Gas 400-400-40 mg/5 mL Suspension 0 ml PO DIRECTED PRN (Reason: Indigestion) RF: 0 doxycycline hyclate 100 mg tablet 50 mg PO QAM RF: 0 enalapril maleate 10 mg Tablet 10 mg PO QAM RF: 0 clopidogrel 75 mg Tablet 75 mg PO SUTUTHSA RF: 0 vitamin E 200 unit Capsule 200 units PO QAM RF: 0 simvastatin 40 mg Tablet 40 mg PO QPM RF: 0 ranitidine HCl [Zantac] 150 mg Tablet 150 mg PO BID PRN (Reason: Indigestion) RF: 0 magnesium 250 mg Tablet 250 mg PO BID RF: 0 Ocuvite Adult 50 Plus 250-5-1 mg Capsule 1 cap PO QAM RF: 0 Centrum Silver 0.4-300-250 mg-mcg-mcg Tablet 1 tab PO QAM RF: 0 cholecalciferol (vitamin D3) [Vitamin D3] 5,000 unit Tablet 5,000 units PO QPM RF: 0 cinnamon bark-chromium picolin 500-100 mg-mcg Capsule 1 cap PO QAM RF: 0 ybdqu-npanq-9-iuc-sgw-bdctyz [krill oil] 768-65-29-50 mg Capsule 1 cap PO QAM RF: 0 Probiotic 3 billion cell Capsule 1 cap PO QAM RF: 0 divalproex 500 mg tablet,delayed release (DR/EC) 500 mg PO BID RF: 0 Discharge Orders: Discharge Order (Routine); Ordered 09/27/19 Ordered By: Shima Miranda/Other Patient Handouts: Back How Works, Fx Neck Spine Admission Data Admit Date/Time: 09/20/19 18:52 Attending Provider: Jack Scruggs Admit Provider: Joanna Rey Primary Care Provider: Jass Osorio Other Providers: Charanjit Kyle ; [facility] ; Jack Scruggs. Other Interventions: Discharge Summary Assessment (RN) Last Done: 09/27/19 12:06 Supervising Physician Co-Signing Physician Notes I supervised Shima Osorio NP on this patient's care. I examined the patient today independently of her. I discussed the plan of care with her with the plan being as written in her note except for any following changes/exceptions: None. Doing well today. Minimal pain at rest. He appreciates that he has to work with rehab and just take time to heal. Cleared by ortho for discharge and outpatient follow up. Will need to use the brace given the instability of his fracture. Coding Level of Care Code D/C Day Management >30 mins Diagnoses Fracture of T9 vertebra S22.072A Encounter type: initial encounter Fracture morphology: burst- unstable Fracture type: closed L1 vertebral fracture S32.018A Encounter type: initial encounter Fracture morphology: other fracture Fracture type: closed Hyperlipidemia E78.5 Gastroesophageal reflux disease K21.9 Benign prostatic hyperplasia with urinary obstruction N40.1; N13.8 Diabetes E11.9 CVA (cerebral vascular accident) I63.9 DVT prophylaxis Z29.9 Anemia D64.9 Pleural effusion J90
--- NOTE | 2019-09-27 10:40 | Pharmacy Report ---
Pharmacy Glycemic Short Note 2 - Date of Service September 27, 2019 - Glycemic Short BSG Results (Last 24 hours): 09/26/19 09/26/19 09/26/19 12:25 17:10 20:26 POC Glucose 228 H 164 H 172 H 09/27/19 08:20 POC Glucose 133 H OUTPATIENT ANTIDIABETIC REGIMEN: * Metformin/glipizide 500 mg/2.5 mg PO BIDM * Metformin XR 500 mg PO daily * Sitagliptin 100 mg PO daily * A1c: 7.7% (09/21/19) ASSESSMENT: 09/27: * Patient received total of 63 units of insulin yesterday, of which 30 were basal insulin * Fasting BSG this am w/in range at 133 - continue same Lantus BID scale * Tighten CR this AM to help control BSGs throughout the day PLAN FOR INPATIENT GLYCEMIC CONTROL: * Hold outpatient oral diabetes medications * Basal insulin * Lantus 15 units SC BID (reduce to 10 units if BSG < 110 mg/dL) * Bolus insulin - tighten * NovoLog per scale ACHS or Q6hrs while NPO * Goal Range: Low 110 mg/dL - High 140 mg/dL * Correction Factor: 18 mg/dL/unit * Nutritional / Prandial insulin per carb ratio of 1 unit per 5 grams CHO consumed PLAN FOR DISCHARGE: * Reasonable A1c goal for this patient is less than 8% * Current A1c is 7.7% * Renal function is currently adequate for continuation of home regimen
[2019-09-27] MEDS: OXYCODONE HCL IR 5 MG TAB (IMMEDIATE RELEASE) PO PRN (15:44)
== END 2019-09-27 19:54 | DRG 543 ==
LOC: ED 14:09 → SUATTDRO 18:52 → 3W 18:52